=== PATIENT | female | born 1935 | race Caucasian/White ===

== ENCOUNTER 2016-06-24 09:24 | Emergency (ER) | payer MEDICARE ==
[2016-06-24] MEDS ORDERED: SODIUM CHLORIDE 0.9% 1,000 ML IV ONE ×2 (09:44→12:41)
[2016-06-24] MEDS ORDERED: cefTRIAXone 1 GM in SODIUM CHLORIDE 0.9% MINIBAG 100 ML IV STA ×2 (12:37→12:39)
[2016-06-24] MEDS ORDERED: cefTRIAXone 1 GM VIAL ONE (12:40)
== END 2016-06-24 16:00 | disposition home or self-care (01) ==
DX: E86.0 Dehydration (principal); N30.00 Acute cystitis without hematuria; S80.02XA Contusion of left knee, initial encounter; S80.12XA Contusion of left lower leg, initial encounter; S80.11XA Contusion of right lower leg, initial encounter; W06.XXXA Fall from bed, initial encounter; I10 Essential (primary) hypertension; E03.9 Hypothyroidism, unspecified; Z86.73 Personal history of transient ischemic attack (TIA), and cerebral infarction without residual deficits; Z79.01 Long term (current) use of anticoagulants

== ENCOUNTER 2016-07-12 16:00 | Outpatient (CLI) | payer MEDICARE | END 2016-07-12 16:01 | disposition home or self-care (01) | DX: N39.0 Urinary tract infection, site not specified (principal) ==

== ENCOUNTER 2016-09-04 09:25 | Outpatient (CLI) | payer MEDICARE | END 2016-09-04 09:26 | disposition home or self-care (01) | DX: K83.0 Cholangitis (principal); I10 Essential (primary) hypertension; I48.0 Paroxysmal atrial fibrillation; E78.5 Hyperlipidemia, unspecified; E03.9 Hypothyroidism, unspecified ==

== ENCOUNTER 2016-11-13 06:56 | Outpatient (CLI) | payer MEDICARE | END 2016-11-13 06:57 | disposition home or self-care (01) | LOC: LAB.R 06:56 | PROVIDERS: ATTEND Family Medicine | DX: N39.0 Urinary tract infection, site not specified (principal) | CPT/HCPCS: 87086 ==

== ENCOUNTER 2016-11-13 06:58 | Outpatient (CLI) | payer MEDICARE | END 2016-11-13 06:59 | disposition home or self-care (01) | LOC: LAB.R 06:58 | PROVIDERS: ATTEND Family Medicine | DX: T14.8 Other injury of unspecified body region (principal); N39.0 Urinary tract infection, site not specified | CPT/HCPCS: 87070; 87077; 87086; 87205 ==

== ENCOUNTER 2016-12-18 09:17 | Outpatient (CLI) | payer MEDICARE ==
[2016-12-18 14:07] LABS: ALBUMIN/GLOBULIN RATIO 1.5 (1.0-2.2); BILIRUBIN,TOTAL 0.6 mg/dL (0.2-1.0); BUN - BLOOD UREA NITROGEN 13 mg/dL (6-20); CARBON DIOXIDE - CO2 25 mmol/L (21-32); CHLORIDE 107 mmol/L (101-111); CHOL/HDL RATIO 3.1 (<4.4); CHOLESTEROL 169 mg/dL; CREATININE 0.7 mg/dL (0.4-1.0); GFR - MDRD 80 (>89); GLUCOSE 100 mg/dL (70-100); HDL CHOLESTEROL 54 mg/dL; LDL/HDL RATIO 1.9 (<4.4); POTASSIUM 3.6 mmol/L (3.5-5.0); SODIUM 140 mmol/L (135-145); TOTAL PROTEIN 6.4 g/dL (6.7-8.2); TRIGLYCERIDES 72 mg/dL; VLDL CHOLESTEROL 14 mg/dL
== END 2016-12-18 09:18 | disposition home or self-care (01) ==
LOC: LAB.WCP 09:17
PROVIDERS: ATTEND Physician Assistant Medical
DX: I10 Essential (primary) hypertension (principal); E78.9 Disorder of lipoprotein metabolism, unspecified; E03.9 Hypothyroidism, unspecified
CPT/HCPCS: 36415; 80053; 80061; 84443

== ENCOUNTER 2016-12-19 11:32 | Outpatient (CLI) | payer MEDICARE ==
[2016-12-19 19:09] LABS: BASOPHILS # (AUTO) 0.1 10^3/uL (0.0-0.1); BASOPHILS % (AUTO) 1.2 %; EOSINOPHILS # (AUTO) 0.4 10^3/uL (0.0-0.7); EOSINOPHILS % (AUTO) 4.7 %; HGB - HEMOGLOBIN 13.3 g/dL (12.0-16.0); LYMPHOCYTES # (AUTO) 1.9 10^3/uL (1.5-3.5); LYMPHOCYTES % (AUTO) 23.3 %; MEAN CORPUSCULAR HEMOGLOBIN 29.8 pg (27.0-31.0); MEAN CORPUSCULAR HGB CONC 33.2 g/dL (32.0-36.0); MEAN CORPUSCULAR VOLUME 89.8 fL (81.0-99.0); MEAN PLATELET VOLUME 10.5 fL (7.9-10.8); MONOCYTES # (AUTO) 0.8 10^3/uL (0.0-1.0); MONOCYTES % (AUTO) 9.9 %; NEUTROPHILS % (AUTO) 60.9 %; NUCLEATED RED BLOOD CELLS AUTO 0.2 /100WBC; RED BLOOD COUNT 4.46 10^6/uL (4.20-5.40); RED CELL DISTRIBUTION WIDTH 14.3 % (12.0-15.0); UNCORRECTED WHITE BLOOD COUNT 8.1 x10^3/uL; WHITE BLOOD COUNT 8.1 x10^3/uL (4.8-10.8)
== END 2016-12-19 11:33 | disposition home or self-care (01) ==
LOC: LAB.WCP 11:32
PROVIDERS: ATTEND Family Medicine
DX: R10.31 Right lower quadrant pain (principal)
CPT/HCPCS: 36415; 85025

== ENCOUNTER 2017-05-23 08:00 | Outpatient (CLI) | payer MEDICARE ==
[2017-05-23 12:49] LABS: BASOPHILS # (AUTO) 0.1 10^3/uL (0.0-0.1); BASOPHILS % (AUTO) 1.5 %; EOSINOPHILS # (AUTO) 0.4 10^3/uL (0.0-0.7); EOSINOPHILS % (AUTO) 3.7 %; HGB - HEMOGLOBIN 13.1 g/dL (12.0-16.0); LYMPHOCYTES # (AUTO) 2.9 10^3/uL (1.5-3.5); LYMPHOCYTES % (AUTO) 28.4 %; MEAN CORPUSCULAR HEMOGLOBIN 29.8 pg (27.0-31.0); MEAN CORPUSCULAR HGB CONC 32.6 g/dL (32.0-36.0); MEAN CORPUSCULAR VOLUME 91.4 fL (81.0-99.0); MEAN PLATELET VOLUME 10.1 fL (7.9-10.8); MONOCYTES # (AUTO) 0.7 10^3/uL (0.0-1.0); MONOCYTES % (AUTO) 7.3 %; NEUTROPHILS % (AUTO) 59.1 %; PLT - PLATELET COUNT 392 10^3/uL (130-450); RED CELL DISTRIBUTION WIDTH 14.6 % (12.0-15.0); WHITE BLOOD COUNT 10.2 x10^3/uL (4.8-10.8)
[2017-05-23 13:35] LABS: ALBUMIN 3.4 g/dL (3.2-5.5); ALBUMIN/GLOBULIN RATIO 1.2 (1.0-2.2); ALKALINE PHOSPHATASE 87 IU/L (42-121); ALT ALANINE AMINOTRANSFERASE 23 IU/L (10-60); AST ASPARTATE AMINOTRANSFERASE 28 IU/L (10-42); BILIRUBIN,TOTAL 0.3 mg/dL (0.2-1.0); BUN - BLOOD UREA NITROGEN 15 mg/dL (6-20); CALCIUM 8.5 mg/dL (8.5-10.3); CARBON DIOXIDE - CO2 25 mmol/L (21-32); CHLORIDE 108 mmol/L (101-111); CREATININE 0.8 mg/dL (0.4-1.0); GFR - MDRD 69 (>89); GLUCOSE 84 mg/dL (70-100); SODIUM 140 mmol/L (135-145); TOTAL PROTEIN 6.3 g/dL (6.7-8.2)
== END 2017-05-23 08:01 | disposition home or self-care (01) ==
LOC: LAB.WCP 08:00
PROVIDERS: ATTEND Family Medicine
DX: R53.83 Other fatigue (principal); E03.9 Hypothyroidism, unspecified
CPT/HCPCS: 36415; 80053; 84443; 85025

== ENCOUNTER 2017-07-20 14:43 | Outpatient (CLI) | payer MEDICARE ==
--- NOTE | 2017-07-21 00:46 | Ultrasound Report ---
EXAM: Bilateral Lower Extremity Arterial Doppler Ultrasound EXAM DATE: 07/20/2017 03:23 PM. CLINICAL HISTORY: Peripheral vascular disease. COMPARISON: None. TECHNIQUE: Real-time sonographic vascular imaging was performed by the patent paralegal, utilizing color-f low, Doppler flow, and spectral analysis. Multiple congressional representative static images were saved for review . FINDINGS: Right Lower Extremity: MAORI PHYSIOTHERAPIST: PSV 157 cm/sec. Biphasic waveform. PSFA: PSV 119 cm/sec. Biphasic waveform. MSFA: PSV 68 cm/sec. Biphasic waveform. DSFA: PSV 75 cm/sec. Biphasic waveform. PFA: PSV 143 cm/sec. Biphasic waveform. POP: Popliteal was viewed. Image not frozen and not saved. GEOVANNA: PSV 34 cm/sec. Biphasic waveform. DOCUMENTATION MANAGER: PSV 44 cm/sec. Biphasic waveform. EDDIE: PSV 32 cm/sec. Monophasic waveform. DPA: PSV 47 cm/sec. Biphasic waveform. Left Lower Extremity: MAORI PHYSIOTHERAPIST: PSV 121 cm/sec. Biphasic waveform. PSFA: PSV 79 cm/sec. Biphasic waveform. MSFA: PSV 73 cm/sec. Biphasic waveform. DSFA: PSV 43 cm/sec. Monophasic waveform. PFA: PSV 105 cm/sec. Triphasic waveform. POP: PSV 49 cm/sec. Monophasic waveform. GEOVANNA: PSV 24 cm/sec. Monophasic waveform. DOCUMENTATION MANAGER: PSV 44 cm/sec. Biphasic waveform. EDDIE: PSV 11 cm/sec. Monophasic waveform. DPA: PSV 25 cm/sec. Biphasic waveform. IMPRESSION: 1. Images of the right popliteal artery were not saved. 2. Within the interrogated arteries of the bilateral lower extremities, there is no evidence of occlu ronaldo or high-grade stenosis. [facility] Referring Provider Line: [phone] SITE ID: [id number]
== END 2017-07-20 14:44 | disposition home or self-care (01) ==
LOC: DI 14:43
PROVIDERS: ATTEND Family Medicine
DX: I73.9 Peripheral vascular disease, unspecified (principal)
CPT/HCPCS: 93925

== ENCOUNTER 2017-08-22 12:36 | Emergency (ER) | payer MEDICARE ==
[2017-08-22] MEDS ORDERED: SODIUM CHLORIDE 0.9% 1,000 ML IV ONE (13:26)
--- NOTE | 2017-08-22 13:29 | ED Physician Documentation ---
PD HPI ABD PAIN - Stated complaint Stated Complaint: ABD PX/VOMITING - Chief complaint Chief Complaint: Abd Pain - History obtained from History obtained from: Patient - History of Present Illness Timing - onset: How many days ago (5) Timing - duration: Days (5) Timing - details: Waxing and waning Pain level max: 10 Pain level now: 3 Quality: Pain Location: RUQ Associated symptoms: Nausea. No: Vomiting - Additional information Additional information: The patient is an 82-year-old female who presents with right upper quadrant abdominal pain that has been waxing and waning intermittently for the past 5 days. She reports associated nausea and "flushing." She denies vomiting, diarrhea, or dysuria. She denies cough. 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 She has a remote history of cholecystectomy. Further past medical history is significant for atrial fibrillation, for which she is on warfarin. Review of Systems Constitutional: reports: Fever, Fatigue Nose: denies: Congestion Throat: denies: Sore throat Cardiac: denies: Chest pain / pressure Respiratory: denies: Dyspnea, Cough GI: reports: Abdominal Pain, Nausea. denies: Vomiting, Diarrhea : denies: Dysuria Skin: denies: Rash Musculoskeletal: reports: Extremity swelling (slight). denies: Back pain Neurologic: denies: Focal weakness, Numbness, Headache PD PAST MEDICAL HISTORY - Past Medical History Cardiovascular: Hypertension, High cholesterol, Atrial fibrillation, Other Neuro: CVA Endocrine/Autoimmune: HyPOthyroidism Musculoskeletal: Osteoarthritis - Past Surgical History Past Surgical History: Yes General: Cholecystectomy Ortho: Hip replacement - Present Medications Home Medications: Ambulatory Orders Medication Instructions Recorded Confirmed ALPRAZolam [Xanax] 0.5 mg ORAL DAILY 10/12/14 06/24/16 Budesonide [Budesonide EC] 3 mg ORAL DAILY 10/12/14 06/24/16 Carvedilol 6.25 mg ORAL BID 10/12/14 06/24/16 Levothyroxine Sodium [Synthroid] 125 mcg ORAL DAILY 10/12/14 06/24/16 Losartan [Cozaar] 50 mg ORAL DAILY 10/12/14 06/24/16 Omeprazole [PriLOSEC] 20 mg ORAL DAILY 10/12/14 06/24/16 Simvastatin 10 mg ORAL DAILY 10/12/14 06/24/16 Warfarin Sodium [Coumadin] 6 mg ORAL DAILY 10/12/14 06/24/16 diazePAM [Valium] 5 mg PO TID PRN #15 tablet 10/12/14 06/24/16 Nitrofurantoin [Macrobid] 100 mg PO BID #20 capsule 06/24/16 Ursodiol 0 mg PO TID 06/24/16 06/24/16 - Allergies Allergies/Adverse Reactions: Allergies Allergy/AdvReac Type Severity Reaction Status Date / Time Sulfa (Sulfonamide Allergy Edema Verified 08/22/17 13:03 Antibiotics) - Social History Does the pt smoke?: No Smoking Status: Never smoker Does the pt drink ETOH?: No Does the pt have substance abuse?: No - Immunizations Immunizations are current?: Yes PD ED PE NORMAL - Vitals Vital signs reviewed: Yes (mild diastolic hypertension) - General General: Alert and oriented X 3, Well developed/nourished - HEENT HEENT: Atraumatic, EOMI, Moist mucous membranes, Pharynx benign - Neck Neck: Supple, no meningeal sign, No adenopathy, No JVD - Cardiac Cardiac: RRR - Respiratory Respiratory: No respiratory distress, Clear bilaterally - Abdomen Abdomen: Normal bowel sounds, Soft, Other (Tenderness to palpation RUQ, without rebound tenderness or guarding.) - Back Back: No CVA TTP - Derm Derm: No rash - Extremities Extremities: No calf tenderness / cord, Other (Trace pedal edema.) - Neuro Neuro: Alert and oriented X 3, No motor deficit, Normal speech Results - Vitals Vitals: Oxygen O2 Source Room air - Labs Labs: Microbiology 08/22/17 13:30 Urine Culture - Final Urine,Clean Catch Less Than 10,000 COLONIES/ML UROGENITAL RAHEL Laboratory Tests 08/22/17 08/22/17 08/22/17 13:30 14:25 14:25 WBC 8.9 RBC 4.27 Hgb 12.7 Hct 37.6 MCV 88.1 MCH 29.8 MCHC 33.8 RDW 14.1 Plt Count 336 MPV 9.2 Neut # 5.8 Lymph # 1.8 Valley # 0.9 Eos # 0.3 Baso # 0.1 Absolute Nucleated RBC 0.00 Nucleated RBC % 0.0 Sodium 130 L Potassium 3.9 Chloride 98 L Carbon Dioxide 25 Anion Gap 7.0 BUN 12 Creatinine 0.7 Estimated GFR (MDRD) 80 L Glucose 90 Calcium 8.7 Total Bilirubin 0.2 AST 25 ALT 21 Alkaline Phosphatase 77 Total Protein 6.0 L Albumin 3.5 Globulin 2.5 Albumin/Globulin Ratio 1.4 Lipase 29 Urine Color YELLOW Urine Clarity CLEAR Urine pH 6.5 Ur Specific Novi <=1.005 Urine Protein 30 H Urine Glucose (UA) NEGATIVE Urine Ketones NEGATIVE Urine Occult Blood TRACE-INTA Urine Nitrite NEGATIVE Urine Bilirubin NEGATIVE Urine Urobilinogen 0.2 (NORMAL) Ur Leukocyte Esterase TRACE H Urine RBC 0-5 Urine WBC 0-3 Ur Squamous Epith Cells RARE Squamous Urine Bacteria Rare Ur Microscopic Review INDICATED Urine Culture Comments INDICATED - Rads (name of study) CT abd/pelvis w/IV contrast Radiology: Prelim report reviewed, EMP read contemporaneously, See rad report (1 ) Cholecystectomy without dilated ducts. 2) Stable bilateral renal cysts. 3) Advanced atherosclerotic calcification. 4) Right hip arthroplasty and chronic L3 compression fracture.) PD MEDICAL DECISION MAKING - ED course Complexity details: reviewed old records, reviewed results, re-evaluated patient , considered differential, d/w patient, d/w family ED course: The patient's upper abdominal pain is most likely due to gastritis versus peptic ulcer disease. Pancreatitis, biliary colic, and cholangitis were considered, but are all unlikely. Her lipase, liver enzymes, and white blood cell count are all normal. CT scan of the abdomen and pelvis reveals no evidence of acute pathology to account for the patient's symptoms. Her presentation does not suggest cardiac or pulmonary etiology for her symptoms. Treatment in the emergency department included administration of normal saline 100 mL IV. A GI cocktail was administered and it relieved the patient's symptoms. On repeat examination, her abdomen is benign. Her medications already include omeprazole, so no further prescription medication was added. I discussed with her and her the likely diagnosis, symptomatic treatment and outpatient follow-up, as well as potentially worrisome signs or symptoms that should prompt reevaluation in the emergency department. Departure - Departure Disposition: 01 Home, Self Care Clinical Impression: Abdominal pain Qualifiers: Abdominal location: upper abdomen, unspecified Qualified Code(s): R10.10 - Upper abdominal pain, unspecified Gastritis Qualifiers: Gastritis type: unspecified gastritis Chronicity: unspecified Gastritis bleeding: without bleeding Qualified Code(s): K29.70 - Gastritis, unspecified, without bleeding Condition: Stable Instructions: ED PUD Vs Gastritis Follow-Up: Alexx Engel MD [Provider Admit Priv/Credential] - Comments: Minimize cheese and other dairy products. Continue omeprazole as previously prescribed. You can use liquid antacid, such as Maalox or Mylanta, if you develop recurrent symptoms. Follow up with your primary physician within 1-2 weeks. Call to schedule an appointment. Return to the emergency department if you develop increasing abdominal pain, persistent vomiting, or otherwise worsening symptoms. Discharge Date/Time: 08/22/17 17:48
[2017-08-22 13:40] LABS: BILIRUBIN,URINE NEGATIVE (NEGATIVE); CLARITY,URINE CLEAR (CLEAR); GLUCOSE, URINE (UA) NEGATIVE (NEGATIVE); KETONES,URINE (UA) NEGATIVE (NEGATIVE); LEUKOCYTE ESTERASE, URINE TRACE (NEGATIVE); NITRITE,URINE NEGATIVE (NEGATIVE); OCCULT BLOOD,URINE TRACE-INTA (NEGATIVE); PH,URINE 6.5 PH (5.0-7.5); PROTEIN,URINE 30 mg/dL (NEGATIVE); UROBILINOGEN,URINE 0.2 (NORMAL) E.U./dL (NORMAL)
[2017-08-22 13:49] LABS: RBC,URINE 0-5 /HPF (0-5)
[2017-08-22 13:50] LABS: BACTERIA,URINE Rare /HPF (None Seen); SQUAMOUS EPITHELIAL CELL,UR RARE Squamous (<= Few)
[2017-08-22 14:34] LABS: BASOPHILS # (AUTO) 0.1 10^3/uL (0.0-0.1); BASOPHILS % (AUTO) 1.2 %; EOSINOPHILS # (AUTO) 0.3 10^3/uL (0.0-0.7); EOSINOPHILS % (AUTO) 3.5 %; HGB - HEMOGLOBIN 12.7 g/dL (12.0-16.0); LYMPHOCYTES # (AUTO) 1.8 10^3/uL (1.5-3.5); LYMPHOCYTES % (AUTO) 20.5 %; MEAN CORPUSCULAR HEMOGLOBIN 29.8 pg (27.0-31.0); MEAN CORPUSCULAR HGB CONC 33.8 g/dL (32.0-36.0); MEAN CORPUSCULAR VOLUME 88.1 fL (81.0-99.0); MEAN PLATELET VOLUME 9.2 fL (7.9-10.8); MONOCYTES # (AUTO) 0.9 10^3/uL (0.0-1.0); MONOCYTES % (AUTO) 9.7 %; NEUTROPHILS # (AUTO) 5.8 10^3/uL (1.5-6.6); NEUTROPHILS % (AUTO) 65.1 %; PLT - PLATELET COUNT 336 10^3/uL (130-450); RED BLOOD COUNT 4.27 10^6/uL (4.20-5.40); RED CELL DISTRIBUTION WIDTH 14.1 % (12.0-15.0); WHITE BLOOD COUNT 8.9 x10^3/uL (4.8-10.8)
[2017-08-22 14:59] LABS: ALBUMIN 3.5 g/dL (3.2-5.5); ALBUMIN/GLOBULIN RATIO 1.4 (1.0-2.2); BILIRUBIN,TOTAL 0.2 mg/dL (0.2-1.0); CALCIUM 8.7 mg/dL (8.5-10.3); CREATININE 0.7 mg/dL (0.4-1.0)
[2017-08-22] MEDS ORDERED: IOPAMIDOL-300 100 ML VIAL ONE (16:14)
--- NOTE | 2017-08-22 16:35 | CT Preliminary Report ---
Exam: CT ABDOMEN/PELVIS W/ IMPRESSION: 1. Cholecystectomy without dilated ducts. 2. Stable bilateral renal cysts. 3. Advanced atherosclerotic calcification. 4. Right hip arthroplasty and chronic L3 compression fracture. [facility] SITE ID: [id number]
--- NOTE | 2017-08-22 16:35 | CT Report ---
EXAM: CT ABDOMEN AND PELVIS EXAM DATE: 08/22/2017 04:02 PM. CLINICAL HISTORY: Right upper quadrant pain.. COMPARISONS: 10/05/2014. TECHNIQUE: Routine helical CT imaging was performed through the abdomen and pelvis. IV contrast: 100M L ISOVUE 300. Enteric contrast: No. Reconstructions: Coronal and sagittal. In accordance with CT protocol optimization, one or more of the following dose reduction techniques w ere utilized for this exam: automated exposure control, adjustment of mA and/or KV based on patient s ize, or use of iterative reconstructive technique. FINDINGS: Lung Bases: Unremarkable. Liver: Normal. No masses. Gallbladder/Bile Ducts: Cholecystectomy. No dilated ducts. Spleen: Normal. Pancreas: Normal. Adrenal Glands: Normal. Kidneys: Stable bilateral cysts, otherwise unremarkable. Peritoneal Cavity/Bowel: Normal. No free fluid, free air or adenopathy. No masses or acute inflammato ry process. The appendix is well visualized and normal. Pelvic Organs: Metal artifact from right hip arthroplasty obscures detail. The bladder and visualized pelvic organs are within normal limits. Vasculature: No aortic enlargement. Advanced atherosclerotic calcification. Bones: Chronic superior endplate concavity at L3. Other: None. IMPRESSION: 1. Cholecystectomy without dilated ducts. 2. Stable bilateral renal cysts. 3. Advanced atherosclerotic calcification. 4. Right hip arthroplasty and chronic L3 compression fracture. [facility] Referring Provider Line: [phone] SITE ID: [id number]
[2017-08-22] MEDS ORDERED: MAG HYDROX/AL HYDROX/SIMETH 30 ML UDC PO STA (16:50)
[2017-08-22] MEDS ORDERED: LIDOCAINE VISCOUS 2% 15 ML UDC MM STA (16:50)
[2017-08-22] MEDS ORDERED: PHENobarb/HYOSCY/ATROPINE/SCOP 5 ML UDC PO STA (16:50)
[2017-08-22 17:41] VITALS: BP 173/83
[2017-08-22] MEDS ORDERED: IOPAMIDOL-300 100 ML VIAL IVP ONE (19:14)
== END 2017-08-22 17:48 | disposition home or self-care (01) ==
LOC: ED 12:36
DX: K29.70 Gastritis, unspecified, without bleeding (principal); I10 Essential (primary) hypertension; E78.00 Pure hypercholesterolemia, unspecified; I48.91 Unspecified atrial fibrillation; Z79.01 Long term (current) use of anticoagulants; E03.9 Hypothyroidism, unspecified; M19.90 Unspecified osteoarthritis, unspecified site; Z86.73 Personal history of transient ischemic attack (TIA), and cerebral infarction without residual deficits
CPT/HCPCS: 36415; 74177; 80053; 81001; 83690; 85025; 87086; 96360; 96361; 99283; 99284; A9270; Q9967; 81003

== ENCOUNTER → 2018-02-14 | Outpatient (CLI) | payer MEDICARE | LOC: LAB.WCP 15:06 | PROVIDERS: ATTEND Family Medicine | DX: M25.511 Pain in right shoulder (principal) | CPT/HCPCS: 36415; 85651 ==

== ENCOUNTER 2018-03-03 13:15 | Outpatient (CLI) | payer MEDICARE | END 2018-03-03 13:16 | disposition home or self-care (01) | LOC: LAB.WCP 13:15 | PROVIDERS: ATTEND Family Medicine | DX: I48.0 Paroxysmal atrial fibrillation (principal); Z79.01 Long term (current) use of anticoagulants | CPT/HCPCS: 36415; 85610 ==

== ENCOUNTER 2018-06-10 11:19 | Outpatient (CLI) | payer MEDICARE ==
[2018-06-10 18:42] LABS: BASOPHILS # (AUTO) 0.1 10^3/uL (0.0-0.1); BASOPHILS % (AUTO) 0.7 %; EOSINOPHILS # (AUTO) 0.4 10^3/uL (0.0-0.7); EOSINOPHILS % (AUTO) 4.4 %; HGB - HEMOGLOBIN 13.1 g/dL (12.0-16.0); LYMPHOCYTES # (AUTO) 2.3 10^3/uL (1.5-3.5); LYMPHOCYTES % (AUTO) 26.3 %; MEAN CORPUSCULAR HEMOGLOBIN 29.7 pg (27.0-31.0); MEAN CORPUSCULAR HGB CONC 34.9 g/dL (32.0-36.0); MEAN CORPUSCULAR VOLUME 85.1 fL (81.0-99.0); MEAN PLATELET VOLUME 9.8 fL (7.9-10.8); MONOCYTES # (AUTO) 0.9 10^3/uL (0.0-1.0); MONOCYTES % (AUTO) 10.4 %; NEUTROPHILS # (AUTO) 5.1 10^3/uL (1.5-6.6); NEUTROPHILS % (AUTO) 58.2 %; PLT - PLATELET COUNT 383 10^3/uL (130-450); RED BLOOD COUNT 4.43 10^6/uL (4.20-5.40); RED CELL DISTRIBUTION WIDTH 14.2 % (12.0-15.0); WHITE BLOOD COUNT 8.7 x10^3/uL (4.8-10.8)
[2018-06-10 19:04] LABS: ALBUMIN 3.5 g/dL (3.2-5.5); ALBUMIN/GLOBULIN RATIO 1.3 (1.0-2.2); ALKALINE PHOSPHATASE 96 IU/L (42-121); ALT ALANINE AMINOTRANSFERASE 25 IU/L (10-60); AST ASPARTATE AMINOTRANSFERASE 31 IU/L (10-42); BILIRUBIN,TOTAL 0.7 mg/dL (0.2-1.0); BUN - BLOOD UREA NITROGEN 19 mg/dL (6-20); CALCIUM 8.8 mg/dL (8.5-10.3); CARBON DIOXIDE - CO2 26 mmol/L (21-32); CHLORIDE 101 mmol/L (101-111); CHOLESTEROL 151 mg/dL; CREATININE 0.8 mg/dL (0.4-1.0); GFR - MDRD 69 (>89); GLUCOSE 73 mg/dL (70-100); HDL CHOLESTEROL 51 mg/dL; LDL CHOLESTEROL,CALCULATED 88 mg/dL; LDL/HDL RATIO 1.7 (<4.4); SODIUM 136 mmol/L (135-145); TOTAL PROTEIN 6.3 g/dL (6.7-8.2); VLDL CHOLESTEROL 12 mg/dL
[2018-06-10 20:40] LABS: HB2 TOTAL 14.7 g/dL; HEMOGLOBIN A1C 0.57 g/dL; HEMOGLOBIN A1C % 5.7 % (4.6-6.2)
== END 2018-06-10 11:20 | disposition home or self-care (01) ==
LOC: LAB.WCP 11:19
PROVIDERS: ATTEND Family Medicine
DX: E03.9 Hypothyroidism, unspecified (principal); E78.9 Disorder of lipoprotein metabolism, unspecified; R73.9 Hyperglycemia, unspecified
CPT/HCPCS: 36415; 80053; 80061; 83036; 83721; 84443; 85025

== ENCOUNTER 2018-06-24 08:00 | Outpatient (CLI) | payer MEDICARE | END 2018-06-24 23:59 | disposition home or self-care (01) | LOC: LAB.WCP 08:00 | PROVIDERS: ATTEND Family Medicine | DX: I48.0 Paroxysmal atrial fibrillation (principal); Z79.01 Long term (current) use of anticoagulants ==

== ENCOUNTER 2018-06-25 09:52 | Emergency (ER) | payer MEDICARE ==
[2018-06-25 09:58] VITALS: BP 133/75
--- NOTE | 2018-06-25 10:30 | ED Physician Documentation ---
History of Present Illness - Stated complaint Stated Complaint: WITHDRAWL - Chief complaint Chief Complaint: General - Additonal information Additional information: 83-year-old female presents the emergency department for Medication evaluation. The patient thought that her primary recommended stopping her alprazolam. Since then the patient reports withdrawal symptoms. The patient denies focal neurologic changes, chest pain, shortness of breath, abdominal pain. The patient does report feeling jittery and nauseous and episodes of diarrhea. No other associated symptoms. The patient did take a half a tablet of alprazolam last night and reports improvement of her symptoms. No other associated symptoms Review of Systems Constitutional: denies: Fever, Chills Eyes: denies: Discharge Ears: denies: Ear pain Throat: denies: Sore throat Cardiac: denies: Chest pain / pressure Respiratory: denies: Dyspnea, Cough GI: reports: Nausea, Diarrhea. denies: Abdominal Pain : denies: Dysuria Neurologic: denies: Generalized weakness, Altered mental status PD PAST MEDICAL HISTORY - Past Medical History Cardiovascular: Hypertension, High cholesterol, Atrial fibrillation, Other Endocrine/Autoimmune: HyPOthyroidism Musculoskeletal: Osteoarthritis - Past Surgical History Past Surgical History: Yes General: Cholecystectomy Ortho: Hip replacement - Present Medications Home Medications: Ambulatory Orders Medication Instructions Recorded Confirmed ALPRAZolam [Xanax] 0.5 mg ORAL DAILY 10/12/14 06/24/16 Budesonide [Budesonide EC] 3 mg ORAL DAILY 10/12/14 06/24/16 Carvedilol 6.25 mg ORAL BID 10/12/14 06/24/16 Levothyroxine Sodium [Synthroid] 125 mcg ORAL DAILY 10/12/14 06/24/16 Losartan [Cozaar] 50 mg ORAL DAILY 10/12/14 06/24/16 Omeprazole [PriLOSEC] 20 mg ORAL DAILY 10/12/14 06/24/16 Simvastatin 10 mg ORAL DAILY 10/12/14 06/24/16 Warfarin Sodium [Coumadin] 6 mg ORAL DAILY 10/12/14 06/24/16 diazePAM [Valium] 5 mg PO TID PRN #15 tablet 10/12/14 06/24/16 Nitrofurantoin [Macrobid] 100 mg PO BID #20 capsule 06/24/16 Ursodiol 0 mg PO TID 06/24/16 06/24/16 - Allergies Allergies/Adverse Reactions: Allergies Allergy/AdvReac Type Severity Reaction Status Date / Time Sulfa (Sulfonamide Allergy Edema Verified 06/25/18 09:58 Antibiotics) - Social History Does the pt smoke?: No Smoking Status: Never smoker Does the pt drink ETOH?: No Does the pt have substance abuse?: No - Immunizations Immunizations are current?: Yes PD ED PE NORMAL - General General: Alert and oriented X 3, No acute distress - HEENT HEENT: Atraumatic, PERRL, EOMI, Ears normal - Derm Derm: Normal color - Extremities Extremities: No deformity - Neuro Neuro: Alert and oriented X 3, Normal speech - Psych Psych: Normal affect Results - Vitals Vitals: Vital Signs - 24 hr 06/25/18 09:55 Temperature 36.8 C Heart Rate 90 Respiratory 16 Rate Blood Pressure 133/75 H O2 Saturation 99 Oxygen O2 Source Room air PD MEDICAL DECISION MAKING - ED course ED course: The case was discussed with the patient's primary care physician. He did not tell the patient that she needed to wean herself off the medication, the patient misinterpreted their conversation. He recommended that the patient can go back on the medication. The patient will follow up in clinic for ongoing medication management. I offered the patient a medical evaluation in the emergency department which would include lab work, an EKG and urinalysis to rule out an underlying medical issue causing her symptoms. The patient has declined this at the time and reports just having blood work. I advised that the patient can return to the emergency department at any point for reevaluation. Departure - Departure Disposition: 01 Home, Self Care Clinical Impression: Withdrawal complaint Condition: Good Instructions: ED Withdrawal Benzodiazepine Comments: You declined any lab work in the emergency department at this time Per your primary care physician the did not feel that you need to the weaning from the benzodiazepine. Please follow-up for ongoing medication management Please to the emergency department return for any worsening or any concerns
== END 2018-06-25 10:36 | disposition home or self-care (01) ==
LOC: ED 09:52
DX: F13.230 Sedative, hypnotic or anxiolytic dependence with withdrawal, uncomplicated (principal); R11.0 Nausea; T42.6X6A Underdosing of other antiepileptic and sedative-hypnotic drugs, initial encounter; Z91.128 Patient's intentional underdosing of medication regimen for other reason; I10 Essential (primary) hypertension; E78.00 Pure hypercholesterolemia, unspecified; E03.9 Hypothyroidism, unspecified; I48.91 Unspecified atrial fibrillation; Z79.01 Long term (current) use of anticoagulants; Z96.649 Presence of unspecified artificial hip joint
CPT/HCPCS: 99282

== ENCOUNTER 2018-07-09 16:00 | Outpatient (CLI) | payer MEDICARE | END 2018-07-09 23:59 | disposition home or self-care (01) | LOC: LAB.WCP 16:00 | PROVIDERS: ATTEND Family Medicine | DX: R30.0 Dysuria (principal) | CPT/HCPCS: 87086 ==

== ENCOUNTER 2018-07-22 08:00 | Outpatient (CLI) | payer MEDICARE | END 2018-07-22 23:59 | disposition home or self-care (01) | LOC: LAB.WCP 08:00 | PROVIDERS: ATTEND Family Medicine | DX: I48.0 Paroxysmal atrial fibrillation (principal); Z79.01 Long term (current) use of anticoagulants | CPT/HCPCS: 81025 ==

== ENCOUNTER 2018-08-25 08:00 | Outpatient (CLI) | payer MEDICARE | END 2018-08-25 08:01 | disposition home or self-care (01) | LOC: LAB.WCP 08:00 | PROVIDERS: ATTEND Family Medicine | DX: I48.0 Paroxysmal atrial fibrillation (principal); Z79.01 Long term (current) use of anticoagulants ==

== ENCOUNTER 2018-10-01 12:42 | Outpatient (CLI) | payer MEDICARE ==
--- NOTE | 2018-10-01 14:30 | Mammography Report ---
Reason: SCREENING MAMMOGRAM FOR BREAST CANCER Procedure Date: 10/01/2018 Accession Number: [id number] / [id number] Procedure: [facility] - Screening Mammo w/[place] CPT Code: FULL RESULT: EXAM: Screening Mammo w/[place] DATE: 10/01/2018 1:36 PM CLINICAL HISTORY: Screening TECHNIQUE: (B) - Bilateral CC and MLO views were obtained. Both 2-D and 3-D mammography was performed. COMPARISON: None available PARENCHYMAL PATTERN: (A) - The breasts demonstrate scattered fibroglandular densities bilaterally. FINDINGS: There are no suspicious masses, calcifications, or areas of distortion. IMPRESSION: Negative examination. BI-RADS category 1. RECOMMENDATION: (ANNUAL) - Recommend routine annual screening mammography. BI-RADS CATEGORY: (1) - Negative. STANDARD QUALIFYING STATEMENTS: 1. This examination was not reviewed with the aid of Computer-Aided Detection (CAD). 2. A negative or benign imaging report should not preclude biopsy if clinically suspicious findings are present. 3. Dense breasts may obscure an underlying neoplasm. 4. This examination was reviewed with the aid of 3D breast imaging (tomosynthesis).
== END 2018-10-01 12:43 | disposition home or self-care (01) ==
LOC: DI 12:42
PROVIDERS: ATTEND Family Medicine
DX: Z12.31 Encounter for screening mammogram for malignant neoplasm of breast (principal)
CPT/HCPCS: 77063; 77067

== ENCOUNTER 2018-10-20 08:00 | Outpatient (CLI) | payer MEDICARE | END 2018-10-20 23:59 | disposition home or self-care (01) | LOC: LAB.WCP 08:00 | PROVIDERS: ATTEND Family Medicine | DX: I48.0 Paroxysmal atrial fibrillation (principal); I63.9 Cerebral infarction, unspecified; Z79.01 Long term (current) use of anticoagulants ==

== ENCOUNTER 2018-12-15 08:00 | Outpatient (CLI) | payer MEDICARE | END 2018-12-15 23:59 | disposition home or self-care (01) | LOC: LAB.WCP 08:00 | PROVIDERS: ATTEND Physician Assistant Medical | DX: I48.0 Paroxysmal atrial fibrillation (principal); I63.9 Cerebral infarction, unspecified ==

== ENCOUNTER 2019-01-12 08:00 | Outpatient (CLI) | payer MEDICARE | END 2019-01-12 23:59 | disposition home or self-care (01) | LOC: LAB.WCP 08:00 | PROVIDERS: ATTEND Physician Assistant Medical | DX: Z79.01 Long term (current) use of anticoagulants (principal); I48.0 Paroxysmal atrial fibrillation ==

== ENCOUNTER 2019-01-26 08:00 | Outpatient (CLI) | payer MEDICARE | END 2019-01-26 23:59 | disposition home or self-care (01) | LOC: LAB.WCP 08:00 | PROVIDERS: ATTEND Physician Assistant Medical | DX: I48.0 Paroxysmal atrial fibrillation (principal); Z79.01 Long term (current) use of anticoagulants ==

== ENCOUNTER 2019-02-16 08:00 | Outpatient (CLI) | payer MEDICARE | END 2019-02-16 23:59 | disposition home or self-care (01) | LOC: LAB.WCP 08:00 | PROVIDERS: ATTEND Physician Assistant Medical | DX: Z79.01 Long term (current) use of anticoagulants (principal); I48.0 Paroxysmal atrial fibrillation ==

== ENCOUNTER 2019-03-16 08:00 | Outpatient (CLI) | payer MEDICARE | END 2019-03-16 23:59 | disposition home or self-care (01) | LOC: LAB.WCP 08:00 | PROVIDERS: ATTEND Physician Assistant Medical | DX: Z79.01 Long term (current) use of anticoagulants (principal); I48.0 Paroxysmal atrial fibrillation ==

== ENCOUNTER 2019-03-24 08:00 | Outpatient (CLI) | payer MEDICARE ==
[2019-03-24 18:39] LABS: BASOPHILS # (AUTO) 0.1 10^3/uL (0.0-0.1); EOSINOPHILS # (AUTO) 0.2 10^3/uL (0.0-0.7); EOSINOPHILS % (AUTO) 2.1 %; HGB - HEMOGLOBIN 12.4 g/dL (12.0-16.0); LYMPHOCYTES # (AUTO) 2.2 10^3/uL (1.5-3.5); MEAN CORPUSCULAR HEMOGLOBIN 28.8 pg (27.0-31.0); MEAN CORPUSCULAR HGB CONC 31.6 g/dL (32.0-36.0); MEAN CORPUSCULAR VOLUME 91.4 fL (81.0-99.0); MEAN PLATELET VOLUME 11.8 fL (7.9-10.8); MONOCYTES % (AUTO) 9.8 %; NEUTROPHILS # (AUTO) 6.3 10^3/uL (1.5-6.6); NEUTROPHILS % (AUTO) 64.5 %; PLT - PLATELET COUNT 501 10^3/uL (130-450); RED CELL DISTRIBUTION WIDTH 14.5 % (12.0-15.0); WHITE BLOOD COUNT 9.9 x10^3/uL (4.8-10.8)
[2019-03-24 18:53] LABS: ALBUMIN 3.7 g/dL (3.2-5.5); ALBUMIN/GLOBULIN RATIO 1.4 (1.0-2.2); BILIRUBIN,TOTAL 0.6 mg/dL (0.2-1.0); CREATININE 0.7 mg/dL (0.4-1.0); TOTAL PROTEIN 6.4 g/dL (6.7-8.2)
== END 2019-03-24 23:59 | disposition home or self-care (01) ==
LOC: LAB.WCP 08:00
PROVIDERS: ATTEND Family Medicine
DX: I10 Essential (primary) hypertension (principal); F41.9 Anxiety disorder, unspecified; I48.0 Paroxysmal atrial fibrillation; K83.09 Other cholangitis
CPT/HCPCS: 36415; 80053; 85025

== ENCOUNTER 2019-04-13 08:00 | Outpatient (CLI) | payer MEDICARE | END 2019-04-13 23:59 | disposition home or self-care (01) | LOC: LAB.WCP 08:00 | PROVIDERS: ATTEND Physician Assistant Medical | DX: Z79.01 Long term (current) use of anticoagulants (principal); I48.0 Paroxysmal atrial fibrillation; I63.9 Cerebral infarction, unspecified ==

== ENCOUNTER 2019-04-20 11:14 | Outpatient (CLI) | payer MEDICARE ==
--- NOTE | 2019-04-20 14:44 | XRAY Report ---
Reason: RIGHT LEG PAIN Procedure Date: 04/20/2019 Accession Number: [id number] / [id number] Procedure: [facility] - Tib/Fib RT CPT Code: Final Report FULL RESULT: EXAM: RIGHT TIBIA/FIBULA RADIOGRAPHY EXAM DATE: 04/20/2019 11:14 AM. CLINICAL HISTORY: Right leg pain. COMPARISON: None. TECHNIQUE: 2 views. FINDINGS: Bones: Normal. No fracture or bone lesion. Joints: The visualized knee and ankle joints are normal. No effusions. Soft Tissues: Prominent vascular calcifications are noted. IMPRESSION: Normal tibia/fibula radiography. [facility]
== END 2019-04-20 23:59 | disposition home or self-care (01) ==
LOC: DI.WCP 11:14
PROVIDERS: ATTEND Family Medicine
DX: M79.604 Pain in right leg (principal)

== ENCOUNTER 2019-04-27 06:28 | Observation (INO) | payer MEDICARE ==
[2019-04-27] MEDS ORDERED: ONDANSETRON 4 MG/2 ML VIAL IVP STA ×2 (07:10→09:57)
[2019-04-27] MEDS ORDERED: MORPHINE 2 MG/ML CARPUJECT IVP STA ×2 (07:11→08:11)
--- NOTE | 2019-04-27 07:13 | ED Physician Documentation ---
History of Present Illness - Stated complaint Stated Complaint: R SHOULDER PX/ABD SWELLING - Chief complaint Chief Complaint: Ext Problem - Additonal information Additional information: This is an 84-year-old female with a history of atrial fibrillation on warfarin and hypertension, who presents with abdominal distention and abdominal discomfort and nausea. Patient states that yesterday she had some diarrhea, and today she is felt very bloated and she been unable to pass gas or have a bowel movement. She feels that her entire abdomen is bloated and she has some generalized discomfort. She has had a gallbladder surgery in the past no other abdominal surgeries. She denies fever. No dysuria. She also has some right shoulder pain that began last night in the absence of any trauma to the shoulder. It is dull and achy, but not as intense compared to her abdominal discomfort, which is sharp crampy and diffuse, and moderate in severity. Review of Systems Constitutional: denies: Fever Nose: denies: Rhinorrhea / runny nose Cardiac: denies: Chest pain / pressure Respiratory: denies: Dyspnea GI: reports: Abdominal Pain, Abdominal Swelling, Nausea : denies: Dysuria Skin: denies: Rash Musculoskeletal: denies: Back pain Neurologic: denies: Generalized weakness Immunocompromised: denies: Immunocompromised PD PAST MEDICAL HISTORY - Past Medical History Past Medical History: Yes Cardiovascular: Hypertension, High cholesterol, Atrial fibrillation, Other Endocrine/Autoimmune: HyPOthyroidism Musculoskeletal: Osteoarthritis - Past Surgical History Past Surgical History: Yes General: Cholecystectomy Ortho: Hip replacement - Present Medications Home Medications: Ambulatory Orders Medication Instructions Recorded Confirmed ALPRAZolam [Xanax] 0.5 mg ORAL DAILY 10/12/14 04/27/19 Budesonide [Budesonide EC] 3 mg ORAL DAILY 10/12/14 04/27/19 Levothyroxine Sodium [Synthroid] 125 mcg ORAL DAILY 10/12/14 04/27/19 Losartan [Cozaar] 50 mg ORAL DAILY 10/12/14 04/27/19 Omeprazole [PriLOSEC] 20 mg ORAL DAILY 10/12/14 04/27/19 Simvastatin 10 mg ORAL DAILY 10/12/14 04/27/19 Warfarin Sodium [Coumadin] 6 mg ORAL DAILY 10/12/14 04/27/19 Fluticasone [Flonase] 1 spray NS DAILY 04/27/19 04/27/19 Garlic 1 tab PO DAILY 04/27/19 04/27/19 Lactobacillus Acidophilus 1 tab PO DAILY 04/27/19 04/27/19 [Probiotic Acidophilus] [place]-3/Dha/Epa/Fish Oil [Fish Oil 3,000 mg PO DAILY 04/27/19 04/27/19 1,000 mg Softgel] Prednisone [Lisa] 1 mg PO DAILY 04/27/19 04/27/19 - Allergies Allergies/Adverse Reactions: Allergies Allergy/AdvReac Type Severity Reaction Status Date / Time Sulfa (Sulfonamide Allergy Edema Verified 04/27/19 06:43 Antibiotics) - Social History Does the pt smoke?: No Smoking Status: Never smoker Does the pt drink ETOH?: No Does the pt have substance abuse?: No - Immunizations Immunizations are current?: Yes - POLST Patient has POLST: No PD ED PE NORMAL - Vitals Vital signs reviewed: Yes - General General: Alert and oriented X 3, Other (Nontoxic-appearing but mildly uncomfortable, patient vomits after my examination) - HEENT HEENT: Atraumatic, PERRL - Neck Neck: Supple, no meningeal sign - Cardiac Cardiac: Other (Irregularly irregular rhythm, regular rate.) - Respiratory Respiratory: No respiratory distress, Clear bilaterally - Abdomen Abdomen: Other (Soft, distended, hypoactive bowel tones, diffusely mildly tender to palpation.) - Derm Derm: Warm and dry - Extremities Extremities: No deformity - Neuro Neuro: Alert and oriented X 3 - Psych Psych: Normal mood, Normal affect Results - Vitals Vitals: Vital Signs - 24 hr 04/27/19 04/27/19 06:30 08:42 Temperature 36.6 C Heart Rate 74 63 Respiratory 18 18 Rate Blood Pressure 182/59 H 153/80 H O2 Saturation 98 94 Oxygen O2 Source Room air - EKG (time done) 7:12 Other comments: Other comments (Rate 78, rhythm atrial fibrillation, there is borderline low voltage in extremity leads. There is no ST segment elevation or depression, no abnormal T wave changes.) - Labs Labs: Laboratory Tests 04/27/19 04/27/19 04/27/19 07:01 07:01 07:01 WBC 21.4 H RBC 3.99 L Hgb 11.9 L Hct 35.8 L MCV 89.7 MCH 29.8 MCHC 33.2 RDW 13.9 Plt Count 449 MPV 10.5 Neut # (Auto) 17.0 H Lymph # (Auto) 1.9 [place] # (Auto) 2.0 H Eos # (Auto) 0.2 Baso # (Auto) 0.1 Absolute Nucleated RBC 0.00 Band Neuts % (Manual) Not Reportable Abnorm Lymph % (Manual) Not Reportable Nucleated RBC % 0.0 Neutrophils # (Manual) Not Reportable Lymphocytes # (Manual) Not Reportable Monocytes # (Manual) Not Reportable Eosinophils # (Manual) Not Reportable Basophils # (Manual) Not Reportable Differential Comment MANUAL=AUTO DIFF WBC Morphology NORMAL APPEARANCE Platelet Estimate INCREASED (>450,000) Platelet Morphology NORMAL ANDREY RBC Morph Micro Appear 1+ HYPOCHROMASIA PT INR Sodium 135 Potassium 3.5 Chloride 101 Carbon Dioxide 25 Anion Gap 9.0 BUN 14 Creatinine 0.7 Estimated GFR (MDRD) 80 L Glucose 114 H Calcium 8.9 Total Bilirubin 1.1 H AST 39 ALT 37 Alkaline Phosphatase 132 H Troponin I High Sens 7.2 Total Protein 6.2 L Albumin 3.5 Globulin 2.7 Albumin/Globulin Ratio 1.3 Lipase 37 Urine Color Urine Clarity Urine pH Ur Specific [place] Urine Protein Urine Glucose (UA) Urine Ketones Urine Occult Blood Urine Nitrite Urine Bilirubin Urine Urobilinogen Ur Leukocyte Esterase Urine RBC Urine WBC Ur Squamous Epith Cells Urine Bacteria Ur Microscopic Review Urine Culture Comments 04/27/19 04/27/19 07:01 08:37 WBC RBC Hgb Hct MCV MCH MCHC RDW Plt Count MPV Neut # (Auto) Lymph # (Auto) [place] # (Auto) Eos # (Auto) Baso # (Auto) Absolute Nucleated RBC Band Neuts % (Manual) Abnorm Lymph % (Manual) Nucleated RBC % Neutrophils # (Manual) Lymphocytes # (Manual) Monocytes # (Manual) Eosinophils # (Manual) Basophils # (Manual) Differential Comment WBC Morphology Platelet Estimate Platelet Morphology RBC Morph Micro Appear PT 32.1 H INR 3.0 H Sodium Potassium Chloride Carbon Dioxide Anion Gap BUN Creatinine Estimated GFR (MDRD) Glucose Calcium Total Bilirubin AST ALT Alkaline Phosphatase Troponin I High Sens Total Protein Albumin Globulin Albumin/Globulin Ratio Lipase Urine Color YELLOW Urine Clarity CLEAR Urine pH 7.5 Ur Specific [place] <=1.005 Urine Protein 30 H Urine Glucose (UA) NEGATIVE Urine Ketones NEGATIVE Urine Occult Blood MODERATE H Urine Nitrite NEGATIVE Urine Bilirubin NEGATIVE Urine Urobilinogen 0.2 (NORMAL) Ur Leukocyte Esterase NEGATIVE Urine RBC 0-5 Urine WBC 0-3 Ur Squamous Epith Cells RARE Squamous Urine Bacteria Rare Ur Microscopic Review INDICATED Urine Culture Comments NOT INDICATED PD MEDICAL DECISION MAKING - ED course Complexity details: considered differential (Bowel obstruction, enteritis, colitis, choledocholithiasis, pancreatitis, UTI, volvulus) ED course: Patient is nontoxic-appearing but somewhat uncomfortable on my examination, and after my exam she vomits clear liquid. She was given morphine and Zofran for symptoms, labs were drawn, and CT scan ordered. Labs are notable for leukocytosis of 21, and a mild anemia. Her CMP shows a mild alk phos elevation, otherwise unremarkable. CT scan shows some chronic findings such as lung scarring, chronic L3 compression fracture gas and feces in the colon, but no acute abnormality. Chest x-ray was performed does not show any acute infiltrate, her shoulder pain is improved after dose of morphine and she has full range of motion of the shoulder, no signs on my physical exam, this may be referred pain, potentially a mild musculoskeletal injury, but do not see signs of fracture or septic joint. Given her shoulder pain and her vomiting, I did perform an EKG and troponin, troponin is in normal range, EKG did not show any convincing signs of ischemia, did show atrial fibrillation which is baseline for the patient On repeat examination patient continues to have pain which is more focal in the right lower quadrant now. She also had a second episode of vomiting despite antiemetics. At this point she still is not passing gas, she has had multiple episodes of vomiting despite antiemetics, and she continues to have pain despite several doses of narcotic IV pain medication. Although I do not have a clear explanation for her symptoms at this time, I am concerned for an abdominal blood process which is not yet declared itself on imaging, and I feel she warrants observation for further work-up, treatment of her nausea and pain, and serial exams. Patient is in agreement with this plan. Lactate and blood culture were drawn,but she is afebrile and I will hold off on empiric antibiotics at this time given we do not have a clear infectious source, And her leukocytosis may be from other causes. Departure - Departure Disposition: ED Place in Observation Clinical Impression: Abdominal pain Qualifiers: Abdominal location: generalized Qualified Code(s): R10.84 - Generalized abdominal pain Vomiting Qualifiers: Vomiting type: unspecified Vomiting Intractability: unspecified Nausea presence: with nausea Qualified Code(s): R11.2 - Nausea with vomiting, unspecified Condition: Good
[2019-04-27 07:15] LABS: BASOPHILS # (AUTO) 0.1 10^3/uL (0.0-0.1); BASOPHILS % (AUTO) 0.6 %; EOSINOPHILS # (AUTO) 0.2 10^3/uL (0.0-0.7); EOSINOPHILS % (AUTO) 0.7 %; HGB - HEMOGLOBIN 11.9 g/dL (12.0-16.0); LYMPHOCYTES # (AUTO) 1.9 10^3/uL (1.5-3.5); LYMPHOCYTES % (AUTO) 8.8 %; MEAN CORPUSCULAR HEMOGLOBIN 29.8 pg (27.0-31.0); MEAN CORPUSCULAR HGB CONC 33.2 g/dL (32.0-36.0); MEAN CORPUSCULAR VOLUME 89.7 fL (81.0-99.0); MEAN PLATELET VOLUME 10.5 fL (7.9-10.8); MONOCYTES % (AUTO) 9.5 %; NEUTROPHILS % (AUTO) 79.4 %; PLT - PLATELET COUNT 449 10^3/uL (130-450); RED BLOOD COUNT 3.99 10^6/uL (4.20-5.40); RED CELL DISTRIBUTION WIDTH 13.9 % (12.0-15.0); WHITE BLOOD COUNT 21.4 x10^3/uL (4.8-10.8)
[2019-04-27 07:20] LABS: ALBUMIN 3.5 g/dL (3.2-5.5); ALBUMIN/GLOBULIN RATIO 1.3 (1.0-2.2); BILIRUBIN,TOTAL 1.1 mg/dL (0.2-1.0); CALCIUM 8.9 mg/dL (8.5-10.3); CREATININE 0.7 mg/dL (0.4-1.0); TOTAL PROTEIN 6.2 g/dL (6.7-8.2)
[2019-04-27] MEDS ORDERED: IOVERSOL 320 100 ML VIAL IVP ONE ×2 (07:24→08:16)
[2019-04-27 07:36] LABS: PT - PROTHROMBIN TIME 32.1 secs (9.9-12.6)
[2019-04-27 07:48] LABS: DIFFERENTIAL COMMENT MANUAL=AUTO DIFF
[2019-04-27 07:51] LABS: PLATELET ESTIMATE, MANUAL INCREASED (>450,000) (NORMAL); PLATELET MORPHOLOGY NORMAL APP (NORMAL); RBC MORPHOLOGY (MULTIPLE) 1+ HYPOCHROMASIA (NORMAL)
--- NOTE | 2019-04-27 08:08 | CT Report ---
Reason: Bloating, vomiting, abd discomfort Procedure Date: 04/27/2019 Accession Number: [id number] / [id number] Procedure: CT - Abdomen/Pelvis W CPT Code: Final Report FULL RESULT: EXAM: CT ABDOMEN AND PELVIS WITH IV CONTRAST EXAM DATE: 04/27/2019 CLINICAL HISTORY: Bloating, vomiting, abdominal discomfort. COMPARISONS: Abdomen and pelvis CT with IV contrast done 08/22/2017. TECHNIQUE: Routine helical CT imaging was performed through the abdomen and pelvis. IV contrast: 100 cc of Optiray 320. Enteric contrast: None. Reconstructions: Coronal and sagittal. In accordance with CT protocol optimization, one or more of the following dose reduction techniques were utilized for this exam: automated exposure control, adjustment of mA and/or KV based on patient size, or use of iterative reconstructive technique. FINDINGS: Lung Bases: Mild lower lung scarring is unchanged. No pleural or pericardial effusion. Atherosclerosis of the aorta and of the left anterior descending coronary artery. Liver: Normal. No masses. Gallbladder/Bile Ducts: Cholecystectomy. No bile duct dilatation. Spleen: Normal. Pancreas: Normal. Adrenal Glands: Normal. Kidneys: Bilateral cysts are unchanged. No masses, calculi, or hydronephrosis. Peritoneal Cavity/Bowel: No bowel dilatation. Moderate volume of gas and feces in nondistended colon. No free fluid, free air or adenopathy. No masses or acute inflammatory process. The appendix is not visible, no right or abdominal inflammatory process. Pelvic Organs: The urinary bladder appears normal. Uterus is normal in size for age. No adenopathy or fluid collections. Vasculature: Atherosclerosis of the aorta and branch arteries. No aneurysm. Bones: Degenerative changes of the spine. Old L3 compression fracture. Right hip prosthesis. IMPRESSION: Moderate volume of gas and feces in the colon. Otherwise, no acute abnormality. Multiple chronic findings, as described in the report, unchanged from 08/22/2017. [facility]
[2019-04-27] MEDS ORDERED: LACTATED RINGERS 500 ML IV STA (08:11)
[2019-04-27 08:48] LABS: BILIRUBIN,URINE NEGATIVE (NEGATIVE); GLUCOSE, URINE (UA) NEGATIVE (NEGATIVE); KETONES,URINE (UA) NEGATIVE (NEGATIVE); LEUKOCYTE ESTERASE, URINE NEGATIVE (NEGATIVE); NITRITE,URINE NEGATIVE (NEGATIVE); OCCULT BLOOD,URINE MODERATE (NEGATIVE); PH,URINE 7.5 PH (5.0-7.5); PROTEIN,URINE 30 mg/dL (NEGATIVE); UROBILINOGEN,URINE 0.2 (NORMAL) E.U./dL (NORMAL)
[2019-04-27 08:57] LABS: CLARITY,URINE CLEAR (CLEAR)
[2019-04-27 09:04] LABS: BACTERIA,URINE Rare /HPF (None Seen); RBC,URINE 0-5 /HPF (0-5); SQUAMOUS EPITHELIAL CELL,UR RARE Squamous (<= Few)
--- NOTE | 2019-04-27 09:52 | XRAY Report ---
Reason: R shoulder pain, leukocytosis Procedure Date: 04/27/2019 Accession Number: [id number] / [id number] Procedure: XR - Chest 1 View X-Ray CPT Code: 32164 Final Report FULL RESULT: EXAM: CHEST RADIOGRAPHY EXAM DATE: 04/27/2019 09:21 AM. CLINICAL HISTORY: R shoulder pain, leukocytosis. COMPARISON: 02/13/2016 11:58 AM. TECHNIQUE: 1 view. FINDINGS: Lungs/Pleura: Persistent elevation right hemidiaphragm. Linear scar or subsegmental atelectasis are right lung base without change. Probable medial segment right middle lobe bronchiectasis. Hilar peribronchial thickening without change. Left hemidiaphragm indistinct. Mediastinum: No cardiac enlargement. Relative mediastinal widening as compared to 02/13/2016. Deviation of the trachea to the right. Possible thyromegaly. Other: None. IMPRESSION: 1. 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 2. Chronic elevation right hemidiaphragm. 3. Negative for acute cardiopulmonary process. 4. Probable bronchiectasis medial segment right middle lobe. 5. Superior mediastinal widening and mild deviation of the trachea to the right. Possible thyromegaly. [facility]
[2019-04-27] MEDS ORDERED: SODIUM CHLORIDE FLUSH 0.9% 10 ML SYRINGE IVP PRN (10:26)
[2019-04-27] MEDS ORDERED: PROCHLORPERAZINE 10 MG/2 ML VIAL IVP PRN (10:26)
[2019-04-27] MEDS ORDERED: DEXTROSE 5%-0.45% NACL 1,000 ML IV SCH (11:00)
--- NOTE | 2019-04-27 11:01 | HISTORY & PHYSICAL EXAMINATION ---
Chief Complaint - Chief Complaint Chief Complaint: RLQ abdominal pain, nausea, vomiting Abdominal Pain HPI - Admitted From Admitted from: ED - History Obtained From Records Reviewed: RN notes reviewed, Old records reviewed History obtained from: Patient, Family (, Kennedy) Exam limitations: Clinical condition - History of Present Illness Severity at the worst: Moderate Pain Quality: Sharp, Dull, Burning, Cramping, Other (RLQ) Context-Pain started w/: Movement, Palpation Timing: Abrupt onset Duration: Days: (began on 04/26 @ 1300) Improved with: Nothing Worsened by: Eating, Movement, Palpation Associated symptoms: Diaphoresis (while vomiting), Nausea, Vomiting, General Weakness HPI Comment/Other: Hannah Wyatt is a 84-year old female with a past medical history of autoimmune cholangitis, paroxysmal atrial fibrillation on Coumadin, urinary incontinence, hypertension, hypothyroidism, PVD, hyperlipidemia, CVA with residual left foot drop, obesity, compression fracture of L3, anxiety, recurrent UTI, anxiety, recent sciatica affecting pain in the right leg which started in March 2019, DJD, chronic back pain, renal cyst, osteopenia and neurogenic claudication. The patient states that starting in early March along with being diagnosed with sciatica,her bowel pattern changed and would have intermittent watery stools, then constipation. She has had a few ED visits for abdominal pain, nausea, & v omiting starting back in August 2017 but did not require a hospital stay and was self-limiting. Yesterday morning she ate pancakes with her as usual, and by lunch time, began to have nausea with RLQ pain that was so profound that it prevented her from sleeping at all last night. Her , Kennedy brought her into the ED this AM at 0630 with a main complaint of abdominal pain, abdominal bloating, diarrhea, and new right shoulder pain. Soon after arriving to the ED, she began vomiting green bile despite anti-emetics which has continued even after arriving to the inpatient nursing unit. Labs show an elevated WBC count of 21.4, Hgb 11.9, Hct 35.8, Neut # 17.0, PT 32.1, INR 3.0, sodium 135, potassium 3.5, creatinine 0.7, GFR 80, glucose 114, bilirubin 1.1, alk phos 132, negative high sensitivity troponin 7.2, total protein 6.2 with no other lab abnormalities. A urinalysis is negative for infection. An abdominal CT showed moderate volume of gas and feces in the colon. Otherwise, no acute abnormality. A chest x-ray showed probable bronchiectasis medial segment right middle lobe. Superior mediastinal widening and mild deviation of the trachea to the right. Possible thyromegaly. On my exam the patient was conversational, complained of a dry mouth and had only RLQ tenderness with deep palpation, with an otherwise unremarkable exam. By the end of my visit, she was vomiting up green bile despite getting Zofran a few minutes earlier. She will be admitted to observation to monitor for infection, and for intractable nausea with vomiting. PMH/PSH - Past Medical History Cardiovascular: positive: Hypertension, High cholesterol, Atrial fibrillation, Other Endocrine/Autoimmune: positive: HyPOthyroidism Musculoskeletal: positive: Osteoarthritis MRSA Hx?: No - Past Surgical History General: positive: Cholecystectomy Ortho: positive: Hip replacement Social & Family Hx - Living Situation Living Arrangement: At home Living Situation: With spouse/s.o. (independent at home with Kennedy and a large Lei cat named Juaquin) - Social History Does the pt smoke?: No Smoking Status: Former smoker (From age [age]) Does the pt drink ETOH?: No Does the pt have substance abuse?: No Additional Social History: The patient was an taxation accountant, now retired. The patient has 3 grown children. She admits to using tobacco from age [age]. No alochol or ilicit drug use. She wishes to be a DNI, and wants all cardiac resuscitation. - POLST Patient has POLST: No POLST Status: Full Code - Family History Family History: Mother: , CVA/TIA, Father: , Cancer, Sister: , CAD, Cancer, Brother: , Cancer Family History Comment/Other: Patient had 11 siblings, unknown causes of for most, sister of heart disease. 2 brothers in WWII. Meds/Allgy - Home Medications Home Medications: Ambulatory Orders Medication Instructions Recorded Confirmed ALPRAZolam [Xanax] 0.5 mg ORAL DAILY 10/12/14 04/27/19 Budesonide [Budesonide EC] 3 mg ORAL DAILY 10/12/14 04/27/19 Levothyroxine Sodium [Synthroid] 125 mcg ORAL DAILY 10/12/14 04/27/19 Losartan [Cozaar] 50 mg ORAL DAILY 10/12/14 04/27/19 Omeprazole [PriLOSEC] 20 mg ORAL DAILY 10/12/14 04/27/19 Simvastatin 10 mg ORAL DAILY 10/12/14 04/27/19 Warfarin Sodium [Coumadin] 6 mg ORAL DAILY 10/12/14 04/27/19 Fluticasone [Flonase] 1 spray NS DAILY 04/27/19 04/27/19 Garlic 1 tab PO DAILY 04/27/19 04/27/19 Lactobacillus Acidophilus 1 tab PO DAILY 04/27/19 04/27/19 [Probiotic Acidophilus] [place]-3/Dha/Epa/Fish Oil [Fish Oil 3,000 mg PO DAILY 04/27/19 04/27/19 1,000 mg Softgel] Prednisone [Lisa] 1 mg PO DAILY 04/27/19 04/27/19 - Allergies Allergies/Adverse Reactions: Allergies Allergy/AdvReac Type Severity Reaction Status Date / Time Sulfa (Sulfonamide Allergy Edema Verified 04/27/19 06:43 Antibiotics) Review of Systems - Constitutional Constitutional: reports: Fatigue, Weakness, Poor appetite, Diaphoresis - Eyes Eyes: reports: Vision loss - Ears, Nose & Throat Ears, Nose & Throat: reports: Dentures, Hoarseness - Cardiovascular Cariovascular: reports: Decr. exercise tolerance - Gastrointestinal Gastrointestinal: reports: Abdominal pain, Abdominal distention, Change in bowel habits, Nausea, Vomiting, Bile emesis, Reflux/heartburn, Bloating, Poor appetite - Genitourinary Genitourinary: reports: Incontinence (stress) - Musculoskeletal Musculoskeletal: reports: Back pain, Limited range of motion, Other (chronic left foot drop since her stroke ~9 years ago.) - Integumentary Integumentary: reports: Dryness - Neurological Neurological: reports: General weakness, Numbness (baseline BLE with decreased sensation, chronic numbness & tingling) - Psychiatric Psychiatric: reports: Anxiety (chronic) - Hematologic/Lymphatic Hematologic/Lymphatic: reports: Bruising, Bleeding tendencies (on coumadin), Re current infections (recurrent UTI) - All Other Systems All Other Systems: reports: Reviewed and negative Prior Level of Functionality: Uses a cane at home, cooks meals, no recent falls, independent at home with . Exam - Vital Signs Reviewed Vital Signs: Yes Vital Signs: Vital Signs x48h Temp Pulse Resp BP Pulse Ox 04/27/19 10:00 36.5 C 92 18 143/101 H 96 04/27/19 08:42 63 18 153/80 H 94 04/27/19 06:30 36.6 C 74 18 182/59 H 98 - Physical Exam General Appearance: positive: Alert, Moderate distress Eyes Bilateral: positive: No lid inflammation ENT: positive: Pharynx nml, Dry mucous membranes Neck: positive: Thyroid nml, Trachea midline Respiratory: positive: Chest non-tender, No respiratory distress, Breath sounds nml Cardiovascular: positive: Regular rate & rhythm, No gallop, Systolic murmur, Decreased pulse(s) Peripheral Pulses: positive: 1+ Abdomen: positive: Tenderness (with deep palpation), Guarding, Abnml bowel sounds (hyperactive), Other (distended, soft) Back: positive: Nml inspection Skin: positive: No rash, Warm, Dry Extremities: positive: Non-tender, Pedal edema, Other Neurologic/Psychiatric: positive: Oriented x3, CN's nml (2-12), Motor nml, Weakness, Sensory loss Reflexes: Bicep (R): 3+, Bicep (L): 3+ Results - Lab Results Lab results reviewed: Yes Fish Bones: 04/27/19 15:52 04/27/19 15:52 Other Lab Results: Lab Results x24hrs 04/27/19 04/27/19 04/27/19 Range/Units 08:37 07:01 07:01 WBC (4.8-10.8) x10^3/uL RBC (4.20-5.40) 10^6/uL Hgb (12.0-16.0) g/dL Hct (37.0-47.0) % MCV (81.0-99.0) fL MCH (27.0-31.0) pg MCHC (32.0-36.0) g/dL RDW (12.0-15.0) % Plt Count (130-450) 10^3/uL MPV (7.9-10.8) fL Neut # (Auto) (1.5-6.6) 10^3/uL Lymph # (Auto) (1.5-3.5) 10^3/uL Hill # (Auto) (0.0-1.0) 10^3/uL Eos # (Auto) (0.0-0.7) 10^3/uL Baso # (Auto) (0.0-0.1) 10^3/uL Absolute Nucleated RBC x10^3/uL Band Neuts % (Manual) Abnorm Lymph % (Manual) Nucleated RBC % /100WBC Neutrophils # (Manual) Lymphocytes # (Manual) Monocytes # (Manual) Eosinophils # (Manual) Basophils # (Manual) Differential Comment WBC Morphology (NORMAL) Platelet Estimate (NORMAL) Platelet Morphology (NORMAL) RBC Morph Micro Appear (NORMAL) PT 32.1 H (9.9-12.6) secs INR 3.0 H (0.8-1.2) Sodium (135-145) mmol/L Potassium (3.5-5.0) mmol/L Chloride (101-111) mmol/L Carbon Dioxide (21-32) mmol/L Anion Gap (6-13) BUN (6-20) mg/dL Creatinine (0.4-1.0) mg/dL Estimated GFR (MDRD) (>89) Glucose (70-100) mg/dL Calcium (8.5-10.3) mg/dL Total Bilirubin (0.2-1.0) mg/dL AST (10-42) IU/L ALT (10-60) IU/L Alkaline Phosphatase (42-121) IU/L Troponin I High Sens 7.2 (2.3-14.8) ng/L Total Protein (6.7-8.2) g/dL Albumin (3.2-5.5) g/dL Globulin (2.1-4.2) g/dL Albumin/Globulin Ratio (1.0-2.2) Lipase (22-51) U/L Urine Color YELLOW Urine Clarity CLEAR (CLEAR) Urine pH 7.5 (5.0-7.5) PH Ur Specific Allen <=1.005 (1.002-1.030) Urine Protein 30 H (NEGATIVE) mg/dL Urine Glucose (UA) NEGATIVE (NEGATIVE) mg/dL Urine Ketones NEGATIVE (NEGATIVE) mg/dL Urine Occult Blood MODERATE H (NEGATIVE) Urine Nitrite NEGATIVE (NEGATIVE) Urine Bilirubin NEGATIVE (NEGATIVE) Urine Urobilinogen 0.2 (NORMAL) (NORMAL) E.U./dL Ur Leukocyte Esterase NEGATIVE (NEGATIVE) Urine RBC 0-5 (0-5) /HPF Urine WBC 0-3 (0-5) /HPF Ur Squamous Epith Cells RARE Squamous (<= Few) Urine Bacteria Rare (None Seen) /HPF Ur Microscopic Review INDICATED Urine Culture Comments NOT INDICATED 04/27/19 04/27/19 Range/Units 07:01 07:01 WBC 21.4 H (4.8-10.8) x10^3/uL RBC 3.99 L (4.20-5.40) 10^6/uL Hgb 11.9 L (12.0-16.0) g/dL Hct 35.8 L (37.0-47.0) % MCV 89.7 (81.0-99.0) fL MCH 29.8 (27.0-31.0) pg MCHC 33.2 (32.0-36.0) g/dL RDW 13.9 (12.0-15.0) % Plt Count 449 (130-450) 10^3/uL MPV 10.5 (7.9-10.8) fL Neut # (Auto) 17.0 H (1.5-6.6) 10^3/uL Lymph # (Auto) 1.9 (1.5-3.5) 10^3/uL Hill # (Auto) 2.0 H (0.0-1.0) 10^3/uL Eos # (Auto) 0.2 (0.0-0.7) 10^3/uL Baso # (Auto) 0.1 (0.0-0.1) 10^3/uL Absolute Nucleated RBC 0.00 x10^3/uL Band Neuts % (Manual) Not Reportable Abnorm Lymph % (Manual) Not Reportable Nucleated RBC % 0.0 /100WBC Neutrophils # (Manual) Not Reportable Lymphocytes # (Manual) Not Reportable Monocytes # (Manual) Not Reportable Eosinophils # (Manual) Not Reportable Basophils # (Manual) Not Reportable Differential Comment MANUAL=AUTO DIFF WBC Morphology NORMAL APPEARANCE (NORMAL) Platelet Estimate INCREASED (>450,000) (NORMAL) Platelet Morphology NORMAL ANDREY (NORMAL) RBC Morph Micro Appear 1+ HYPOCHROMASIA (NORMAL) PT (9.9-12.6) secs INR (0.8-1.2) Sodium 135 (135-145) mmol/L Potassium 3.5 (3.5-5.0) mmol/L Chloride 101 (101-111) mmol/L Carbon Dioxide 25 (21-32) mmol/L Anion Gap 9.0 (6-13) BUN 14 (6-20) mg/dL Creatinine 0.7 (0.4-1.0) mg/dL Estimated GFR (MDRD) 80 L (>89) Glucose 114 H (70-100) mg/dL Calcium 8.9 (8.5-10.3) mg/dL Total Bilirubin 1.1 H (0.2-1.0) mg/dL AST 39 (10-42) IU/L ALT 37 (10-60) IU/L Alkaline Phosphatase 132 H (42-121) IU/L Troponin I High Sens (2.3-14.8) ng/L Total Protein 6.2 L (6.7-8.2) g/dL Albumin 3.5 (3.2-5.5) g/dL Globulin 2.7 (2.1-4.2) g/dL Albumin/Globulin Ratio 1.3 (1.0-2.2) Lipase 37 (22-51) U/L Urine Color Urine Clarity (CLEAR) Urine pH (5.0-7.5) PH Ur Specific Allen (1.002-1.030) Urine Protein (NEGATIVE) mg/dL Urine Glucose (UA) (NEGATIVE) mg/dL Urine Ketones (NEGATIVE) mg/dL Urine Occult Blood (NEGATIVE) Urine Nitrite (NEGATIVE) Urine Bilirubin (NEGATIVE) Urine Urobilinogen (NORMAL) E.U./dL Ur Leukocyte Esterase (NEGATIVE) Urine RBC (0-5) /HPF Urine WBC (0-5) /HPF Ur Squamous Epith Cells (<= Few) Urine Bacteria (None Seen) /HPF Ur Microscopic Review Urine Culture Comments - Diagnostic Imaging Results Diagnostic Imaging Results: positive: Final report reviewed Diagnostic Imaging Results Comments: EXAM: CT ABDOMEN AND PELVIS WITH IV CONTRAST EXAM DATE: 04/27/2019 IMPRESSION: Moderate volume of gas and feces in the colon. Otherwise, no acute abnormality. Multiple chronic findings, as described in the report, unchanged from 08/22/2017. EXAM: CHEST RADIOGRAPHY EXAM DATE: 04/27/2019 09:21 AM. IMPRESSION: 1. 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 2. Chronic elevation right hemidiaphragm. 3. Negative for acute cardiopulmonary process. 4. Probable bronchiectasis medial segment right middle lobe. 5. Superior mediastinal widening and mild deviation of the trachea to the right. Possible thyromegaly. Impression/Plan - Problem List Problem List: Intractable nausea and vomiting -Continues to have small amounts of green bile emesis despite anti-emetics -Patient complains of abdominal fullness, lack of passing flatus, diarrhea prior to coming in this morning -Suspected from her known cholangitis. Differential diagnoses may be due to ischemic bowel, obstruction, or acute infection -Re-checking labs for increased WBC count, abdominal x-ray for obstruction -Continue with symptom management Leukocytosis -WBC count was elevated upon admission at 21, 13 upon recheck -Routine labs, monitor vital signs Abdominal wall pain in right lower quadrant -Pain is intermittent, worse with deep palpation -May be the result of abdominal distension -Continue to monitor, patient is refusing IV morphine as she thinks it is making her nausea worse Autoimmune cholangitis -Patient states she has had a full work up for this in the past, including an EGD and it is treated with low dose prednisone -Prior ED visits for similar symptoms Anticoagulated on Coumadin -Patient takes Warfarin at home for her atrial fibrillation, INR was 3.0 -Holding for now in the event she will need a surgical intervention Dehydration -Likely due to poor PO intake, now with emesis -Gentle IV fluids if needed, fluids were stopped earlier for patient complaints of ankle swelling -Routine labs, manage symptoms Chronic/stable diagnoses: Urinary incontinence Hypertension Hypothyroidism Chronic atrial fibrillation PVD (peripheral vascular disease) Hyperlipidemia CVA (cerebral vascular accident) Left foot drop Obesity (BMI 30.0-34.9) Compression fracture of L3 vertebra Anxiety 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
[2019-04-27] MEDS ORDERED: ONDANSETRON 4 MG/2 ML VIAL IVP PRN (14:00)
[2019-04-27] MEDS: PANTOPRAZOLE 40 MG VIAL IVP SCH ×2 (14:14→20:55)
[2019-04-27 16:07] LABS: HGB - HEMOGLOBIN 12.1 g/dL (12.0-16.0); MEAN CORPUSCULAR HEMOGLOBIN 30.1 pg (27.0-31.0); MEAN CORPUSCULAR HGB CONC 32.7 g/dL (32.0-36.0); MEAN PLATELET VOLUME 10.8 fL (7.9-10.8); NEUTROPHILS # (AUTO) 11.2 10^3/uL (1.5-6.6); NEUTROPHILS % (AUTO) 81.1 %; RED BLOOD COUNT 4.02 10^6/uL (4.20-5.40); RED CELL DISTRIBUTION WIDTH 14.2 % (12.0-15.0); WHITE BLOOD COUNT 13.8 x10^3/uL (4.8-10.8)
[2019-04-27 16:20] LABS: CALCIUM 9.1 mg/dL (8.5-10.3); CREATININE 0.7 mg/dL (0.4-1.0)
[2019-04-27 16:28] LABS: CRP - C-REACTIVE PROTEIN 4.2 mg/dL (0-1.0)
--- NOTE | 2019-04-27 16:47 | XRAY Report ---
Reason: evaluate for ileus Procedure Date: 04/27/2019 Accession Number: [id number] / [id number] Procedure: XR - Abdomen 1 View X-Ray CPT Code: 18566 Final Report FULL RESULT: EXAM: ABDOMEN RADIOGRAPHY EXAM DATE: 04/27/2019 04:27 PM. CLINICAL HISTORY: Evaluate for ileus. COMPARISON: ABDOMEN 2 VIEW 12/19/2016 11:02 AM ABDOMEN/PELVIS W/ 04/27/2019 7:41 AM ABDOMEN/PELVIS W/ 08/22/2017 3:45 PM. TECHNIQUE: 2 view. FINDINGS: Bowel Gas Pattern: Nonobstructive bowel gas pattern. Other: Chronic compression L3 vertebral body with a concave deformity of the superior vertebral body endplate and the 25% loss of vertebral body height. Osteopenia. Subsegmental atelectasis lung bases. Small quantity of contrast nondistended bladder. Right hip unipolar prosthesis. IMPRESSION: Nonspecific bowel gas pattern. RADIA
[2019-04-27 17:08] LABS: HEMOGLOBIN A1C 0.47 g/dL; HEMOGLOBIN A1C % 5.7 % (4.6-6.2)
[2019-04-27] MEDS: SODIUM CHLORIDE FLUSH 0.9% 10 ML SYRINGE IVP SCH ×2 (20:55→23:29)
[2019-04-28] MEDS ORDERED: diphenhydrAMINE 25 MG CAPSULE PO PRN (03:02)
[2019-04-28] MEDS ORDERED: ACETAMINOPHEN 325 MG TABLET PO PRN (03:02)
[2019-04-28] MEDS ORDERED: LEVOTHYROXINE 125 MCG TABLET PO SCH (07:00)
[2019-04-28 07:27] LABS: BASOPHILS # (AUTO) 0.1 10^3/uL (0.0-0.1); BASOPHILS % (AUTO) 0.5 %; EOSINOPHILS # (AUTO) 0.2 10^3/uL (0.0-0.7); EOSINOPHILS % (AUTO) 1.9 %; LYMPHOCYTES # (AUTO) 2.1 10^3/uL (1.5-3.5); LYMPHOCYTES % (AUTO) 18.7 %; MEAN CORPUSCULAR HEMOGLOBIN 29.7 pg (27.0-31.0); MEAN CORPUSCULAR HGB CONC 32.8 g/dL (32.0-36.0); MEAN CORPUSCULAR VOLUME 90.5 fL (81.0-99.0); MEAN PLATELET VOLUME 10.5 fL (7.9-10.8); MONOCYTES # (AUTO) 1.1 10^3/uL (0.0-1.0); MONOCYTES % (AUTO) 9.8 %; NEUTROPHILS # (AUTO) 7.7 10^3/uL (1.5-6.6); NEUTROPHILS % (AUTO) 68.6 %; PLT - PLATELET COUNT 397 10^3/uL (130-450); RED CELL DISTRIBUTION WIDTH 14.1 % (12.0-15.0); WHITE BLOOD COUNT 11.2 x10^3/uL (4.8-10.8)
[2019-04-28 07:42] LABS: ALBUMIN 3.2 g/dL (3.2-5.5); ALBUMIN/GLOBULIN RATIO 1.3 (1.0-2.2); BILIRUBIN,TOTAL 1.2 mg/dL (0.2-1.0); CALCIUM 8.6 mg/dL (8.5-10.3); CREATININE 0.8 mg/dL (0.4-1.0); MAGNESIUM 1.9 mg/dL (1.7-2.8); TOTAL PROTEIN 5.6 g/dL (6.7-8.2)
[2019-04-28] MEDS ORDERED: predniSONE 1 MG TABLET PO SCH (09:00)
[2019-04-28] MEDS ORDERED: ALPRAZolam 0.25 MG TABLET PO SCH (09:00)
[2019-04-28] MEDS ORDERED: LOSARTAN 50 MG TABLET PO SCH (09:00)
[2019-04-28] MEDS ORDERED: FLUTICASONE NASAL SPRAY NAS SCH (09:00)
[2019-04-28] MEDS ORDERED: WARFARIN 5 MG TABLET PO SCH ×3 (09:00→21:00)
[2019-04-28] MEDS ORDERED: WARFARIN 1 MG TABLET PO SCH ×4 (09:00→21:00)
[2019-04-28] MEDS: PANTOPRAZOLE 40 MG VIAL IVP SCH (09:07)
[2019-04-28] MEDS: SODIUM CHLORIDE FLUSH 0.9% 10 ML SYRINGE IVP SCH (09:10)
[2019-04-28 09:38] VITALS: BP 170/81
--- NOTE | 2019-04-28 13:11 | PHARMACY PROGRESS NOTE ---
- Best Possible Medication History Admit Date and Time: 04/27/19 1026 Processed by: Pharmacy Medication History completed: Yes Patient Interview: Completed Secondary Source(s): Physician records, Pharmacy records As the person ultimately responsible for medication therapy, providers are able to order a medication from an existing home medication list in [facility] via the "Reconcile Routine" prior to Confirmation of that medication by administrative support assistant. Such practice is discouraged except when the physician, in their clinical judgment, deems that a medical need exists for a medication without regard to previous use.
[2019-04-28] MEDS ORDERED: ALPRAZolam 0.25 MG TABLET PO PRN (13:12)
--- NOTE | 2019-04-28 13:17 | Discharge Plan ---
Discharge Plan Problem Reviewed?: Yes Disposition: Home, Self Care Condition: Good Prescriptions: Ondansetron Odt [Zofran] 4 mg TL Q6H PRN #20 tablet PRN Reason: Nausea / Vomiting Prednisone 5 mg PO DAILY #30 tablet Diet: Regular Activity Restrictions: No Restrictions Health Concerns: Autoimmune cholangitis Nausea with vomiting Abdominal bloating Plan of Treatment: Increase your prednisone dose to 5 mg daily to prevent further flare-ups Take the Zofran for nausea Eat a balanced meal and avoid eating after 6-7PM at night See your primary care provider within one week Care Goals: Prevent flare ups Prevent extra doctors visits, ED visits Assessment: Your symptoms subsided after one night of stay and the final conclusion was made based on the disorder that you already have; autoimmune cholangitis or hepatitis. You were medically stable, tolerating meals, and less abdominal bloating, so ready for discharge. No Smoking: If you smoke, Please STOP! Call for help. Follow-up with: Alexx Engel MD [Primary Care Provider] -
--- NOTE | 2019-04-28 13:50 | DISCHARGE SUMMARY ---
Discharge Summary Admit Date: 04/27/19 Discharge Date: 04/28/19 Discharging Provider: Radha Arredondo Primary Care Provider: Brodie Engel Code Status: Attempt Resuscitation Condition at Discharge: Good Discharge Disposition: 01 Home, Self Care - DIAGNOSES Admission Diagnoses: Intractable nausea and vomiting Leukocytosis Abdominal wall pain in right lower quadrant Autoimmune cholangitis Anticoagulated on Coumadin Dehydration Urinary incontinence Hypertension Hypothyroidism Chronic atrial fibrillation PVD (peripheral vascular disease) Hyperlipidemia CVA (cerebral vascular accident) Left foot drop Obesity (BMI 30.0-34.9) Compression fracture of L3 vertebra Anxiety 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 DJD (degenerative joint disease) Discharge Diagnoses with Status of Each Condition: Intractable nausea and vomiting-Resolved Leukocytosis- WBC count up to 21.4, down to 11.2 upon discharged, likely due to stress response Abdominal wall pain in right lower quadrant-Likely due to an exacerbation of chronic cholangitis, increased daily steroid dose from 1mg to 5mg, follow up with PCP Autoimmune cholangitis-Chronic, increased daily prednisone dose, stable Anticoagulated on Coumadin-INR 3.0, skipped one dose, resume as usual Dehydration-Resolved Urinary incontinence-Chronic, stable Hypertension-Chronic, stable Hypothyroidism-Chronic, stable Chronic atrial fibrillation-Chronic, stable PVD (peripheral vascular disease)-Chronic, stable Hyperlipidemia-Chronic, stable CVA (cerebral vascular accident)-Chronic, stable Left foot drop-Chronic, stable Obesity (BMI 30.0-34.9)-Chronic, stable Compression fracture of L3 vertebra-Chronic, stable Anxiety-Chronic, stable 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 The patient states that starting in early March along with being diagnosed with sciatica,her bowel pattern changed and would have intermittent watery stools, then constipation. She has had a few ED visits for abdominal pain, nausea, & vomiting starting back in August 2017 but did not require a hospital stay and was self-limiting. Yesterday morning she ate pancakes with her as usual, and by lunch time, began to have nausea with RLQ pain that was so profound that it prevented her from sleeping at all last night. Her , Kennedy brought her into the ED this AM at 0630 with a main complaint of abdominal pain, abdominal bloating, diarrhea, and new right shoulder pain. Soon after arriving to the ED, she began vomiting green bile despite anti-emetics which has continued even after arriving to the inpatient nursing unit. Labs show an elevated WBC count of 21.4, Hgb 11.9, Hct 35.8, Neut # 17.0, PT 32.1, INR 3.0, sodium 135, potassium 3.5, creatinine 0.7, GFR 80, glucose 114, bilirubin 1.1, alk phos 132, negative high sensitivity troponin 7.2, total protein 6.2 with no other lab abnormalities. A urinalysis is negative for infection. An abdominal CT showed moderate volume of gas and feces in the colon. Otherwise, no acute abnormality. A chest x-ray showed probable bronchiectasis medial segment right middle lobe. Superior mediastinal widening and mild deviation of the trachea to the right. Possible thyromegaly. On my exam the patient was conversational, complained of a dry mouth and had only RLQ tenderness with deep palpation, with an otherwise unremarkable exam. By the end of my visit, she was vomiting up green bile despite getting Zofran a few minutes earlier. She will be admitted t o observation to monitor for infection, and for intractable nausea with vomiting. - HOSPITAL COURSE Hospital Course: The patient had one hospital night of stay for symptom management which resolved with bowel rest, and anti-emetics. The final conclusion was made based on the patient's history of autoimmune cholangitis or hepatitis. The patient was medically stable, tolerating meals, and had less abdominal bloating, so she was discharged home with her . - ALLERGIES Allergies/Adverse Reactions: Allergies Allergy/AdvReac Type Severity Reaction Status Date / Time sertraline Allergy Unknown Verified 04/28/19 15:58 Sulfa (Sulfonamide Allergy Edema Verified 04/27/19 06:43 Antibiotics) - MEDICATIONS Home Medications: Ambulatory Orders Medication Instructions Recorded Confirmed Budesonide [Budesonide EC] 6 mg PO DAILY 10/12/14 04/28/19 Levothyroxine Sodium [Synthroid] 125 mcg PO DAILY 10/12/14 04/28/19 Omeprazole [PriLOSEC] 20 mg PO DAILY 10/12/14 04/28/19 Simvastatin 5 mg PO QPM 10/12/14 04/28/19 Warfarin Sodium [Coumadin] 6 mg PO TUFR@209910/12/14 04/28/19 Fluticasone [Flonase] 1 spray NS DAILY 04/27/19 04/27/19 Garlic 1 tab PO DAILY 04/27/19 04/27/19 Lactobacillus Acidophilus 1 tab PO DAILY 04/27/19 04/27/19 [Probiotic Acidophilus] [place]-3/Dha/Epa/Fish Oil [Fish Oil 3,000 mg PO DAILY 04/27/19 04/27/19 1,000 mg Softgel] ALPRAZolam [Alprazolam] 0.25 - 0.5 mg PO TID PRN 04/28/19 04/28/19 Losartan Potassium 25 mg PO DAILY 04/28/19 04/28/19 Metoprolol Succinate [Toprol Xl] 25 mg PO DAILY 04/28/19 04/28/19 Ondansetron Odt [Zofran] 4 mg TL Q6H PRN #20 tablet 04/28/19 Prednisone 5 mg PO DAILY #30 tablet 04/28/19 Warfarin Sodium 3 mg PO SUMOWETHSA@209904/28/19 04/28/19 predniSONE [Deltasone] 2 mg PO DAILYWM 04/28/19 04/28/19 ursodioL [Jordon 250] 250 mg PO TID 04/28/19 04/28/19 - PHYSICAL EXAM AT DISCHARGE General Appearance: positive: No acute distress, Alert Eyes Bilateral: positive: PERRL, No lid inflammation ENT: positive: Pharynx nml, No signs of dehydration Neck: positive: Thyroid nml, No JVD, Trachea midline Respiratory: positive: Chest non-tender, No respiratory distress, Breath sounds nml Cardiovascular: positive: Regular rate & rhythm, No gallop, Systolic murmur Peripheral Pulses: positive: 1+ Abdomen: positive: Non-tender, Nml bowel sounds, Hepatomegaly, Other (obese, soft) Back: positive: Nml inspection Skin: positive: No rash, Warm, Dry Extremities: positive: Non-tender, Full ROM, Pedal edema (dependent-BLE) Neurologic/Psychiatric: positive: Oriented x3, CN's nml (2-12), Motor nml, Sensation nml, Mood/affect nml Reflexes: Bicep (R): 3+, Bicep (L): 3+, Ankle (R): 3+, Ankle (L): 3+ - LABS Result Diagrams: 04/28/19 07:23 04/28/19 07:23 - FOLLOW UP Follow Up: Health Concerns: Autoimmune cholangitis Nausea with vomiting Abdominal bloating Plan of Treatment: Increase your prednisone dose to 5 mg daily to prevent further flare-ups Take the Zofran for nausea Eat a balanced meal and avoid eating after 6-7PM at night See your primary care provider within one week Care Goals: Prevent flare ups Prevent extra doctors visits, ED visits Assessment: Your symptoms subsided after one night of stay and the final conclusion was made based on the disorder that you already have; autoimmune cholangitis or hepatitis. You were medically stable, tolerating meals, and less abdominal bloating, so ready for discharge. - TIME SPENT Time Spent in Discharge (Minutes): 65
[2019-04-29] MEDS ORDERED: predniSONE 1 MG TABLET PO SCH (08:00)
[2019-04-29] MEDS ORDERED: LOSARTAN 50 MG TABLET PO SCH (09:00)
[2019-04-29] MEDS ORDERED: METOPROLOL SUCCINATE 25 MG TABLET PO SCH (09:00)
[2019-04-29] MEDS ORDERED: WARFARIN 1 MG TABLET PO SCH (21:00)
== END 2019-04-28 14:32 | disposition home or self-care (01) ==
LOC: ED 06:28 → MS2 10:26
PROVIDERS: ADMIT Nurse Practitioner; ATTEND Nurse Practitioner
DX: R11.14 Bilious vomiting (principal); R10.31 Right lower quadrant pain; R10.813 Right lower quadrant abdominal tenderness; R19.7 Diarrhea, unspecified; M25.511 Pain in right shoulder; D72.829 Elevated white blood cell count, unspecified; K83.09 Other cholangitis; E86.0 Dehydration; D64.9 Anemia, unspecified; I48.0 Paroxysmal atrial fibrillation; I10 Essential (primary) hypertension; E03.9 Hypothyroidism, unspecified; E78.5 Hyperlipidemia, unspecified; F41.9 Anxiety disorder, unspecified; E66.9 Obesity, unspecified; I69.398 Other sequelae of cerebral infarction; M21.372 Foot drop, left foot; Z90.49 Acquired absence of other specified parts of digestive tract; Z79.01 Long term (current) use of anticoagulants; Z79.899 Other long term (current) drug therapy; Z79.52 Long term (current) use of systemic steroids; Z68.31 Body mass index [BMI] 31.0-31.9, adult; Z87.440 Personal history of urinary (tract) infections; Z87.891 Personal history of nicotine dependence
CPT/HCPCS: 36415; 51701; 71045; 74018; 74177; 80048; 80053; 81001; 82150; 82977; 83036; 83605; 83690; 83735; 84443; 84478; 84484; 85025; 85027; 85610; 86140; 87040; 93005; 96361; 96374; 96375; 96376; 99285; A9270; G0378; J7120; J7512; Q9967; 81003; 87086

== ENCOUNTER 2019-05-07 14:28 | Outpatient (CLI) | payer MEDICARE ==
[2019-05-07 18:56] LABS: BASOPHILS # (AUTO) 0.1 10^3/uL (0.0-0.1); EOSINOPHILS # (AUTO) 0.1 10^3/uL (0.0-0.7); EOSINOPHILS % (AUTO) 0.7 %; LYMPHOCYTES # (AUTO) 1.5 10^3/uL (1.5-3.5); LYMPHOCYTES % (AUTO) 14.3 %; MEAN CORPUSCULAR HEMOGLOBIN 28.9 pg (27.0-31.0); MEAN CORPUSCULAR HGB CONC 31.6 g/dL (32.0-36.0); MEAN CORPUSCULAR VOLUME 91.3 fL (81.0-99.0); MEAN PLATELET VOLUME 11.8 fL (7.9-10.8); MONOCYTES # (AUTO) 0.7 10^3/uL (0.0-1.0); MONOCYTES % (AUTO) 6.4 %; NEUTROPHILS # (AUTO) 8.2 10^3/uL (1.5-6.6); NEUTROPHILS % (AUTO) 76.8 %; PLT - PLATELET COUNT 579 10^3/uL (130-450); RED CELL DISTRIBUTION WIDTH 14.6 % (12.0-15.0); WHITE BLOOD COUNT 10.7 x10^3/uL (4.8-10.8)
[2019-05-07 19:04] LABS: ALBUMIN 3.8 g/dL (3.2-5.5); ALBUMIN/GLOBULIN RATIO 1.3 (1.0-2.2); BILIRUBIN,TOTAL 0.7 mg/dL (0.2-1.0); CALCIUM 9.2 mg/dL (8.5-10.3); CREATININE 0.8 mg/dL (0.4-1.0); TOTAL PROTEIN 6.8 g/dL (6.7-8.2)
== END 2019-05-07 23:59 | disposition home or self-care (01) ==
LOC: LAB.WCP 14:28
PROVIDERS: ATTEND Family Medicine
DX: D72.829 Elevated white blood cell count, unspecified (principal); K83.09 Other cholangitis; I48.0 Paroxysmal atrial fibrillation
CPT/HCPCS: 36415; 80053; 85025; 85651

== ENCOUNTER 2019-06-08 08:00 | Outpatient (CLI) | payer MEDICARE | END 2019-06-08 23:59 | disposition home or self-care (01) | LOC: LAB.WCP 08:00 | PROVIDERS: ATTEND Physician Assistant Medical | DX: Z79.01 Long term (current) use of anticoagulants (principal); I48.0 Paroxysmal atrial fibrillation; I63.9 Cerebral infarction, unspecified ==

== ENCOUNTER 2019-07-06 08:00 | Outpatient (CLI) | payer MEDICARE | END 2019-07-06 23:59 | disposition home or self-care (01) | LOC: LAB.WCP 08:00 | PROVIDERS: ATTEND Family Medicine | DX: I48.0 Paroxysmal atrial fibrillation (principal); I63.9 Cerebral infarction, unspecified; Z79.01 Long term (current) use of anticoagulants ==

== ENCOUNTER 2019-07-16 08:00 | Outpatient (CLI) | payer MEDICARE ==
[2019-07-16 11:44] LABS: BASOPHILS # (AUTO) 0.1 10^3/uL (0.0-0.1); BASOPHILS % (AUTO) 1.2 %; EOSINOPHILS # (AUTO) 0.7 10^3/uL (0.0-0.7); EOSINOPHILS % (AUTO) 6.8 %; HGB - HEMOGLOBIN 13.1 g/dL (12.0-16.0); LYMPHOCYTES # (AUTO) 3.7 10^3/uL (1.5-3.5); LYMPHOCYTES % (AUTO) 34.3 %; MEAN CORPUSCULAR HEMOGLOBIN 29.9 pg (27.0-31.0); MEAN CORPUSCULAR VOLUME 93.6 fL (81.0-99.0); MEAN PLATELET VOLUME 11.6 fL (7.9-10.8); MONOCYTES # (AUTO) 1.2 10^3/uL (0.0-1.0); MONOCYTES % (AUTO) 10.9 %; NEUTROPHILS % (AUTO) 46.1 %; PLT - PLATELET COUNT 469 10^3/uL (130-450); RED BLOOD COUNT 4.38 10^6/uL (4.20-5.40); RED CELL DISTRIBUTION WIDTH 14.5 % (12.0-15.0); WHITE BLOOD COUNT 10.8 x10^3/uL (4.8-10.8)
[2019-07-16 12:06] LABS: ALBUMIN 3.6 g/dL (3.2-5.5); ALBUMIN/GLOBULIN RATIO 1.2 (1.0-2.2); ALKALINE PHOSPHATASE 110 IU/L (42-121); ALT ALANINE AMINOTRANSFERASE 35 IU/L (10-60); AST ASPARTATE AMINOTRANSFERASE 36 IU/L (10-42); BILIRUBIN,TOTAL 0.6 mg/dL (0.2-1.0); BUN - BLOOD UREA NITROGEN 16 mg/dL (6-20); CALCIUM 9.2 mg/dL (8.5-10.3); CARBON DIOXIDE - CO2 24 mmol/L (21-32); CHLORIDE 99 mmol/L (101-111); CHOL/HDL RATIO 3.4 (<4.4); CHOLESTEROL 171 mg/dL; CREATININE 0.8 mg/dL (0.4-1.0); GLUCOSE 91 mg/dL (70-100); HDL CHOLESTEROL 51 mg/dL; LDL CHOLESTEROL,CALCULATED 100 mg/dL; SODIUM 136 mmol/L (135-145); TOTAL PROTEIN 6.5 g/dL (6.7-8.2); VLDL CHOLESTEROL 20 mg/dL
[2019-07-16 12:12] LABS: HB2 TOTAL 13.9 g/dL; HEMOGLOBIN A1C 0.48 g/dL; HEMOGLOBIN A1C % 5.3 % (4.6-6.2)
== END 2019-07-16 23:59 | disposition home or self-care (01) ==
LOC: LAB.WCP 08:00
PROVIDERS: ATTEND Family Medicine
DX: K83.09 Other cholangitis (principal); I10 Essential (primary) hypertension; F41.9 Anxiety disorder, unspecified; I48.0 Paroxysmal atrial fibrillation; Z12.31 Encounter for screening mammogram for malignant neoplasm of breast; E78.5 Hyperlipidemia, unspecified; E03.9 Hypothyroidism, unspecified
CPT/HCPCS: 36415; 80053; 80061; 83036; 83721; 84443; 85025

== ENCOUNTER 2019-08-03 08:00 | Outpatient (CLI) | payer MEDICARE | END 2019-08-03 23:59 | disposition home or self-care (01) | LOC: LAB.WCP 08:00 | PROVIDERS: ATTEND Family Medicine | DX: I48.0 Paroxysmal atrial fibrillation (principal); Z79.01 Long term (current) use of anticoagulants; I63.9 Cerebral infarction, unspecified ==

== ENCOUNTER 2019-08-31 08:00 | Outpatient (CLI) | payer MEDICARE | END 2019-08-31 23:59 | disposition home or self-care (01) | LOC: LAB.WCP 08:00 | PROVIDERS: ATTEND Family Medicine | DX: I48.0 Paroxysmal atrial fibrillation (principal); Z79.01 Long term (current) use of anticoagulants; I63.9 Cerebral infarction, unspecified ==

== ENCOUNTER 2019-09-28 08:00 | Outpatient (CLI) | payer MEDICARE | END 2019-09-28 23:59 | disposition home or self-care (01) | LOC: LAB.WCP 08:00 | PROVIDERS: ATTEND Family Medicine | DX: I63.9 Cerebral infarction, unspecified (principal); Z79.01 Long term (current) use of anticoagulants ==

== ENCOUNTER 2019-10-13 16:55 | Outpatient (CLI) | payer MEDICARE ==
[2019-10-13 18:41] LABS: CALCIUM 8.9 mg/dL (8.5-10.3); CREATININE 0.7 mg/dL (0.4-1.0)
== END 2019-10-13 23:59 | disposition home or self-care (01) ==
LOC: LAB.WCP 16:55
PROVIDERS: ATTEND Nurse Practitioner Family
DX: R25.2 Cramp and spasm (principal)
CPT/HCPCS: 36415; 80048

== ENCOUNTER 2019-10-26 08:00 | Outpatient (CLI) | payer MEDICARE | END 2019-10-26 23:59 | disposition home or self-care (01) | LOC: LAB.WCP 08:00 | PROVIDERS: ATTEND Family Medicine | DX: I48.0 Paroxysmal atrial fibrillation (principal); Z79.01 Long term (current) use of anticoagulants ==

== ENCOUNTER 2019-11-23 08:00 | Outpatient (CLI) | payer MEDICARE | END 2019-11-23 23:59 | disposition home or self-care (01) | LOC: LAB.WCP 08:00 | PROVIDERS: ATTEND Family Medicine | DX: Z79.01 Long term (current) use of anticoagulants (principal); I48.0 Paroxysmal atrial fibrillation; I63.9 Cerebral infarction, unspecified ==

== ENCOUNTER 2019-12-14 09:24 | Outpatient (CLI) | payer MEDICARE ==
[2019-12-14 11:44] LABS: BASOPHILS # (AUTO) 0.1 10^3/uL (0.0-0.1); EOSINOPHILS # (AUTO) 0.2 10^3/uL (0.0-0.7); HGB - HEMOGLOBIN 12.7 g/dL (12.0-16.0); LYMPHOCYTES % (AUTO) 28.9 %; MEAN CORPUSCULAR HGB CONC 31.6 g/dL (32.0-36.0); MEAN CORPUSCULAR VOLUME 91.8 fL (81.0-99.0); MEAN PLATELET VOLUME 11.5 fL (7.9-10.8); MONOCYTES # (AUTO) 0.9 10^3/uL (0.0-1.0); NEUTROPHILS # (AUTO) 6.2 10^3/uL (1.5-6.6); NEUTROPHILS % (AUTO) 58.7 %; PLT - PLATELET COUNT 515 10^3/uL (130-450); RED BLOOD COUNT 4.38 10^6/uL (4.20-5.40); RED CELL DISTRIBUTION WIDTH 14.2 % (12.0-15.0); WHITE BLOOD COUNT 10.5 x10^3/uL (4.8-10.8)
[2019-12-14 12:15] LABS: ALBUMIN 3.7 g/dL (3.2-5.5); ALBUMIN/GLOBULIN RATIO 1.3 (1.0-2.2); BILIRUBIN,TOTAL 0.7 mg/dL (0.2-1.0); CALCIUM 9.3 mg/dL (8.5-10.3); CREATININE 0.7 mg/dL (0.4-1.0); TOTAL PROTEIN 6.6 g/dL (6.7-8.2)
[2019-12-14 13:20] LABS: HEMOGLOBIN A1c% 5.5 % (4.27-6.07)
== END 2019-12-14 23:59 | disposition home or self-care (01) ==
LOC: LAB.WCP 09:24
PROVIDERS: ATTEND Family Medicine
DX: I10 Essential (primary) hypertension (principal); R06.09 Other forms of dyspnea; E78.5 Hyperlipidemia, unspecified; E03.9 Hypothyroidism, unspecified; R53.83 Other fatigue; M35.3 Polymyalgia rheumatica
CPT/HCPCS: 36415; 80053; 83036; 83880; 84443; 85025

== ENCOUNTER 2019-12-22 08:00 | Outpatient (CLI) | payer MEDICARE | END 2019-12-22 23:59 | disposition home or self-care (01) | LOC: LAB.WCP 08:00 | PROVIDERS: ATTEND Family Medicine | DX: I48.0 Paroxysmal atrial fibrillation (principal); Z79.01 Long term (current) use of anticoagulants; I63.9 Cerebral infarction, unspecified ==

== ENCOUNTER 2020-01-07 09:09 | Outpatient (CLI) | payer MEDICARE | END 2020-01-07 09:10 | disposition critical access hospital (66) | LOC: EMS 09:09 | PROVIDERS: ATTEND Surgery | DX: M54.5 Low back pain (principal); W18.39XA Other fall on same level, initial encounter | CPT/HCPCS: A0425; A0429 ==

== ENCOUNTER 2020-01-07 09:39 | Emergency (ER) | payer MEDICARE ==
--- NOTE | 2020-01-07 10:09 | ED Physician Documentation ---
History of Present Illness - Stated complaint Stated Complaint: LOW BACK PX - Chief complaint Chief Complaint: Trauma Ch/Bk - History obtained from History obtained from: Patient, EMS - History of Present Illness Timing: How many days ago (5) Pain level max: 7 Pain level now: 5 - Additonal information Additional information: 84-year-old female presents to the emergency department stating that she was in her bathroom several days ago when her right knee gave out, she fell forward onto her hands and knees on the floor. Had difficulty getting up. No pain initially, but gradually has developed left-sided low back/pelvis pain. Worse with movement. Better with rest. Took Tylenol without relief. She is on warfarin. No loss of bowel or bladder control. Has not seen her doctor for this. She states the pain is better with sitting up as well. No numbness or tingling. Review of Systems Constitutional: denies: Fever, Chills Respiratory: denies: Dyspnea, Cough GI: denies: Vomiting, Diarrhea : denies: Dysuria Skin: denies: Rash Musculoskeletal: denies: Neck pain, Back pain Neurologic: denies: Focal weakness, Numbness, Confused, Headache PD PAST MEDICAL HISTORY - Past Medical History Past Medical History: Yes Cardiovascular: Hypertension, High cholesterol, Atrial fibrillation, Other Respiratory: None Neuro: CVA Endocrine/Autoimmune: HyPOthyroidism GI: None : Incontinence Psych: None Musculoskeletal: Osteoarthritis Derm: Herpes zoster - Past Surgical History Past Surgical History: Yes General: Cholecystectomy Ortho: Hip replacement HEENT: Tonsil/Adenoidectomy - Present Medications Home Medications: Ambulatory Orders Medication Instructions Recorded Confirmed Budesonide [Budesonide EC] 3 mg PO DAILY 10/12/14 01/07/20 Levothyroxine Sodium [Synthroid] 125 mcg PO DAILY 10/12/14 01/07/20 Omeprazole [PriLOSEC] 20 mg PO DAILY 10/12/14 01/07/20 Simvastatin 5 mg PO QPM 10/12/14 01/07/20 Warfarin Sodium [Coumadin] 6 mg PO TUFR@2100 10/12/14 01/07/20 Fluticasone [Flonase] 1 spray NS DAILY 04/27/19 04/27/19 Garlic 1 tab PO DAILY 04/27/19 01/07/20 Lactobacillus Acidophilus 1 tab PO DAILY 04/27/19 01/07/20 [Probiotic Acidophilus] [place]-3/Dha/Epa/Fish Oil [Fish Oil 3,000 mg PO DAILY 04/27/19 01/07/20 1,000 mg Softgel] ALPRAZolam [Alprazolam] 0.2 mg PO TID PRN 04/28/19 01/07/20 Losartan Potassium 25 mg PO DAILY 04/28/19 01/07/20 Metoprolol Succinate [Toprol Xl] 25 mg PO DAILY 04/28/19 01/07/20 Ondansetron Odt [Zofran] 4 mg TL Q6H PRN #20 tablet 04/28/19 Warfarin Sodium 3 mg PO SUMOWETHSA@2100 04/28/19 01/07/20 predniSONE [Deltasone] 2 mg PO DAILYWM 04/28/19 04/28/19 ursodioL [Jordon 250] 250 mg PO TID 04/28/19 04/28/19 Ondansetron Odt [Zofran] 4 mg TL Q6H PRN #10 tablet 01/07/20 Oxycodone HCl 2.5 - 5 mg PO Q6H PRN #14 tablet 01/07/20 Prednisone 1 mg PO DAILY 01/07/20 01/07/20 - Allergies Allergies/Adverse Reactions: Allergies Allergy/AdvReac Type Severity Reaction Status Date / Time sertraline Allergy Unknown Verified 04/28/19 15:58 Sulfa (Sulfonamide Allergy Edema Verified 04/27/19 06:43 Antibiotics) - Social History Does the pt smoke?: No Smoking Status: Never smoker Does the pt drink ETOH?: No Does the pt have substance abuse?: No - Immunizations Immunizations are current?: Yes - POLST Patient has POLST: No POLST Status: Full Code PD ED PE NORMAL - Vitals Vital signs reviewed: Yes - General General: Alert and oriented X 3, No acute distress, Well developed/nourished - HEENT HEENT: Moist mucous membranes - Neck Neck: Supple, no meningeal sign - Cardiac Cardiac: RRR, Strong equal pulses - Respiratory Respiratory: No respiratory distress, Clear bilaterally - Abdomen Abdomen: Soft, Non tender, Non distended - Back Back: No spinal TTP (No midline tenderness to palpation or percussion. No step- off or deformity. Mild tenderness over the left gluteus area. No hematoma. No bruising.) - Derm Derm: Warm and dry - Extremities Extremities: Other (Normal bilateral lower extremity patellar and ankle jerk reflexes. Normal great toe extension bilaterally. no saddle anesthesia) - Neuro Neuro: Alert and oriented X 3, No motor deficit, No sensory deficit - Psych Psych: Normal mood, Normal affect Results - Vitals Vitals: Vital Signs - 24 hr 01/07/20 01/07/20 01/07/20 09:40 09:55 11:48 Temperature 36.2 C L 36.2 C L 36.6 C Heart Rate 73 82 72 Respiratory 16 16 16 Rate Blood Pressure 136/62 H 136/62 H 140/115 H O2 Saturation 100 100 97 01/07/20 01/07/20 12:32 12:55 Temperature 36.0 C L Heart Rate 85 Respiratory 18 Rate Blood Pressure 135/70 H 127/59 L O2 Saturation 100 Oxygen O2 Source Room air - Labs Labs: Laboratory Tests 01/07/20 01/07/20 01/07/20 10:15 10:15 10:35 WBC 12.7 H RBC 3.95 L Hgb 12.1 Hct 36.7 L MCV 92.9 MCH 30.6 MCHC 33.0 RDW 14.5 Plt Count 510 H MPV 10.6 Neut # (Auto) 9.4 H Lymph # (Auto) 1.5 [place] # (Auto) 1.3 H Eos # (Auto) 0.2 Baso # (Auto) 0.1 Absolute Nucleated RBC 0.00 Nucleated RBC % 0.0 PT INR Sodium 137 Potassium 4.2 Chloride 101 Carbon Dioxide 27 Anion Gap 9.0 BUN 16 Creatinine 0.8 Estimated GFR (MDRD) 68 L Glucose 110 H Calcium 9.1 Total Bilirubin 0.4 AST 34 ALT 27 Alkaline Phosphatase 128 H Total Protein 6.5 L Albumin 3.6 Globulin 2.9 Albumin/Globulin Ratio 1.2 Lipase 44 Urine Color YELLOW Urine Clarity CLEAR Urine pH 7.5 Ur Specific [place] 1.025 Urine Protein 100 H Urine Glucose (UA) NEGATIVE Urine Ketones NEGATIVE Urine Occult Blood NEGATIVE Urine Nitrite NEGATIVE Urine Bilirubin NEGATIVE Urine Urobilinogen 0.2 (NORMAL) Ur Leukocyte Esterase NEGATIVE Urine RBC 0-5 Urine WBC 4-5 Ur Squamous Epith Cells MOD Squamous H Urine Bacteria Moderate H Urine Casts 0-2 Hyaline Casts Urine Yeast PRESENT Ur Microscopic Review INDICATED Urine Culture Comments NOT INDICATED 01/07/20 10:45 WBC RBC Hgb Hct MCV MCH MCHC RDW Plt Count MPV Neut # (Auto) Lymph # (Auto) [place] # (Auto) Eos # (Auto) Baso # (Auto) Absolute Nucleated RBC Nucleated RBC % PT 30.4 H INR 2.9 H Sodium Potassium Chloride Carbon Dioxide Anion Gap BUN Creatinine Estimated GFR (MDRD) Glucose Calcium Total Bilirubin AST ALT Alkaline Phosphatase Total Protein Albumin Globulin Albumin/Globulin Ratio Lipase Urine Color Urine Clarity Urine pH Ur Specific [place] Urine Protein Urine Glucose (UA) Urine Ketones Urine Occult Blood Urine Nitrite Urine Bilirubin Urine Urobilinogen Ur Leukocyte Esterase Urine RBC Urine WBC Ur Squamous Epith Cells Urine Bacteria Urine Casts Urine Yeast Ur Microscopic Review Urine Culture Comments PD MEDICAL DECISION MAKING - ED course Complexity details: reviewed results, re-evaluated patient, considered differential, d/w patient ED course: No indication for x-rays. No bony tenderness. No significant lab abnormalities. Feels much better after pain medication and is ambulating without difficulty. Will prescribe her pain medication for home. Patient counseled regarding signs and symptoms for which I believe and urgent re- evaluation would be necessary. Patient with good understanding of and agreement to plan and is comfortable going home at this time This document was made in part using voice recognition software. While efforts are made to proofread this document, sound alike and grammatical errors may occur. Departure - Departure Disposition: 01 Home, Self Care Clinical Impression: Back pain Qualifiers: Back pain location: low back pain Chronicity: acute Back pain laterality: left Sciatica presence: without sciatica Qualified Code(s): M54.5 - Low back pain Condition: Good Instructions: ED Neck Back Pain General Follow-Up: Alexx Engel MD [Primary Care Provider] - Within 1 week Prescriptions: Oxycodone HCl 2.5 - 5 mg PO Q6H PRN #14 tablet PRN Reason: pain Ondansetron Odt [Zofran] 4 mg TL Q6H PRN #10 tablet PRN Reason: Nausea / Vomiting Comments: Follow-up with your doctor for further care. There are no significant lab abnormalities today. Imaging is not indicated at this time. Do not drink alcohol or drive while on narcotic pain medicine. Note that many narcotic pain relievers also contain tylenol/acetaminophen. Please ensure that your total dose of acetaminophen from all sources does not exceed 3 grams (3000mg) per day. You may constipated on this medication, take a stool softener such as "Colace" twice a day while you are on it. Also recommend a [id number] laxative such as senna or MiraLAX any day that you do not have a bowel movement. If you received narcotic pain medication in the emergency department, do not drive or operate machinery for the next 24 hours. Discharge Date/Time: 01/07/20 12:55
[2020-01-07 10:28] LABS: BASOPHILS # (AUTO) 0.1 10^3/uL (0.0-0.1); BASOPHILS % (AUTO) 0.9 %; EOSINOPHILS # (AUTO) 0.2 10^3/uL (0.0-0.7); EOSINOPHILS % (AUTO) 1.9 %; HGB - HEMOGLOBIN 12.1 g/dL (12.0-16.0); LYMPHOCYTES # (AUTO) 1.5 10^3/uL (1.5-3.5); MEAN CORPUSCULAR HEMOGLOBIN 30.6 pg (27.0-31.0); MEAN CORPUSCULAR VOLUME 92.9 fL (81.0-99.0); MEAN PLATELET VOLUME 10.6 fL (7.9-10.8); MONOCYTES # (AUTO) 1.3 10^3/uL (0.0-1.0); MONOCYTES % (AUTO) 10.4 %; NEUTROPHILS # (AUTO) 9.4 10^3/uL (1.5-6.6); NEUTROPHILS % (AUTO) 74.1 %; PLT - PLATELET COUNT 510 10^3/uL (130-450); RED BLOOD COUNT 3.95 10^6/uL (4.20-5.40); RED CELL DISTRIBUTION WIDTH 14.5 % (12.0-15.0); WHITE BLOOD COUNT 12.7 x10^3/uL (4.8-10.8)
[2020-01-07 10:48] LABS: ALBUMIN 3.6 g/dL (3.2-5.5); ALBUMIN/GLOBULIN RATIO 1.2 (1.0-2.2); BILIRUBIN,TOTAL 0.4 mg/dL (0.2-1.0); CALCIUM 9.1 mg/dL (8.5-10.3); CREATININE 0.8 mg/dL (0.4-1.0); TOTAL PROTEIN 6.5 g/dL (6.7-8.2)
[2020-01-07 10:49] LABS: BILIRUBIN,URINE NEGATIVE (NEGATIVE); GLUCOSE, URINE (UA) NEGATIVE (NEGATIVE); KETONES,URINE (UA) NEGATIVE (NEGATIVE); LEUKOCYTE ESTERASE, URINE NEGATIVE (NEGATIVE); NITRITE,URINE NEGATIVE (NEGATIVE); OCCULT BLOOD,URINE NEGATIVE (NEGATIVE); PH,URINE 7.5 PH (5.0-7.5); PROTEIN,URINE 100 mg/dL (NEGATIVE); UROBILINOGEN,URINE 0.2 (NORMAL) E.U./dL (NORMAL)
[2020-01-07 10:51] LABS: CLARITY,URINE CLEAR (CLEAR)
[2020-01-07 10:52] LABS: INR 2.9 (0.8-1.2); PT - PROTHROMBIN TIME 30.4 secs (9.9-12.6)
[2020-01-07] MEDS ORDERED: oxyCODONE 5 MG TABLET PO STA (10:55)
[2020-01-07 11:01] LABS: BACTERIA,URINE Moderate /HPF (None Seen); CASTS, URINE 0-2 Hyaline Casts /LPF; RBC,URINE 0-5 /HPF (0-5); SQUAMOUS EPITHELIAL CELL,UR MOD Squamous (<= Few); YEAST,URINE PRESENT
[2020-01-07] MEDS ORDERED: ONDANSETRON ODT 4 MG TABLET TL STA (12:41)
[2020-01-07 12:56] VITALS: BP 127/59
== END 2020-01-07 12:55 | disposition home or self-care (01) ==
LOC: EDUNIT# → ED 09:39
DX: M54.5 Low back pain (principal); W18.39XA Other fall on same level, initial encounter; Y92.002 Bathroom of unspecified non-institutional (private) residence as the place of occurrence of the external cause; I10 Essential (primary) hypertension; I48.91 Unspecified atrial fibrillation; Z79.01 Long term (current) use of anticoagulants
CPT/HCPCS: 36415; 80053; 81001; 83690; 85025; 85610; 99283; 99284; A9270; Q0162; 81003; 87086

== ENCOUNTER 2020-01-19 08:00 | Outpatient (CLI) | payer MEDICARE | END 2020-01-19 23:59 | disposition home or self-care (01) | LOC: LAB.WCP 08:00 | PROVIDERS: ATTEND Family Medicine | DX: Z79.01 Long term (current) use of anticoagulants (principal) ==

== ENCOUNTER 2020-02-10 16:54 | Inpatient (IN) | payer MEDICARE ==
--- NOTE | 2020-02-10 17:30 | ED Physician Documentation ---
History of Present Illness - Stated complaint Stated Complaint: FALL - Chief complaint Chief Complaint: Trauma Ext - Additonal information Additional information: 84-year-old female with a history of atrial fibrillation on Coumadin presents to the emergency department after a fall this afternoon. By report she was leaving the [address] [employer] and stepped off a steep curb falling onto her left hip. She was unable to get up on her own. She presented to the emergency department with acute left hip pain. She denies striking her head. Review of Systems Constitutional: reports: Reviewed and negative Ears: reports: Reviewed and negative Throat: reports: Reviewed and negative Cardiac: reports: Reviewed and negative Respiratory: reports: Dyspnea. denies: Cough GI: reports: Reviewed and negative : reports: Reviewed and negative Musculoskeletal: reports: Joint pain (left hip) Neurologic: reports: Reviewed and negative PD PAST MEDICAL HISTORY - Past Medical History Cardiovascular: Hypertension, High cholesterol, Atrial fibrillation, Other Respiratory: None Neuro: CVA Endocrine/Autoimmune: HyPOthyroidism GI: None : Incontinence Psych: None Musculoskeletal: Osteoarthritis Derm: Herpes zoster - Past Surgical History Past Surgical History: Yes General: Cholecystectomy Ortho: Hip replacement HEENT: Tonsil/Adenoidectomy - Present Medications Home Medications: Ambulatory Orders Medication Instructions Recorded Confirmed Budesonide [Budesonide EC] 3 mg PO DAILY 10/12/14 02/10/20 Levothyroxine Sodium [Synthroid] 125 mcg PO DAILY 10/12/14 02/10/20 Omeprazole [PriLOSEC] 20 mg PO DAILY 10/12/14 02/10/20 Simvastatin 5 mg PO QPM 10/12/14 02/10/20 Warfarin Sodium [Coumadin] 6 mg PO TUFR@2100 10/12/14 02/10/20 Garlic 1 tab PO DAILY 04/27/19 02/10/20 Lactobacillus Acidophilus 1 tab PO DAILY 04/27/19 02/10/20 [Probiotic Acidophilus] [place]-3/Dha/Epa/Fish Oil [Fish Oil 3,000 mg PO DAILY 04/27/19 02/10/20 1,000 mg Softgel] ALPRAZolam [Alprazolam] 0.2 mg PO TID PRN 04/28/19 02/10/20 Losartan Potassium 25 mg PO DAILY 04/28/19 02/10/20 Metoprolol Succinate [Toprol Xl] 25 mg PO DAILY 04/28/19 02/10/20 Warfarin Sodium 3 mg PO SUMOWETHSA@2100 04/28/19 02/10/20 predniSONE [Deltasone] 2 mg PO DAILYWM 04/28/19 04/28/19 ursodioL [Jordon 250] 250 mg PO TID 04/28/19 04/28/19 Prednisone 1 mg PO DAILY 01/07/20 02/10/20 - Allergies Allergies/Adverse Reactions: Allergies Allergy/AdvReac Type Severity Reaction Status Date / Time sertraline Allergy Unknown Verified 04/28/19 15:58 Sulfa (Sulfonamide Allergy Edema Verified 04/27/19 06:43 Antibiotics) - Social History Does the pt smoke?: No Smoking Status: Never smoker Does the pt drink ETOH?: No Does the pt have substance abuse?: No - Immunizations Immunizations are current?: Yes - POLST Patient has POLST: No POLST Status: Full Code PD ED PE EXPANDED - General General: Alert, Anxious, In Pain - Cardiac Cardiac: Regular Rate, Murmur Present, Radial strong equal, Femoral strong equal, Pedal strong equal, Cap refill < 2 sec - Respiratory Respiratory: Clear to ausultation lukasz. No: Distress, Labored - Abdomen Abdomen: Normal Bowel sounds. No: Tender to palpation - Extremities Extremities: Left hip (Tenderness with palpation lateral hip. no leg shortening. distal 2+ pulse. ) - Neuro Neuro: Alert and Oriented X 3, CNII-XII intact - GCS Eye Opening: Spontaneous Motor: Obeys Commands Verbal: Oriented Total: 15 Results - Vitals Vitals: Vital Signs - 24 hr 02/10/20 02/10/20 16:57 17:33 Temperature 36 C L Heart Rate 69 61 Respiratory 18 20 Rate Blood Pressure 146/66 H 156/72 H O2 Saturation 99 93 Oxygen O2 Source Room air - EKG (time done) 1747 Rate: Rate (enter#) (69) Rhythm: NSR [place]: Normal Intervals: Normal NE QRS: Normal Ischemia: Normal ST segments Other comments: Other comments (PVC noted) Computer interpretation: Agree with computer - Labs Labs: Laboratory Tests 02/10/20 02/10/20 02/10/20 17:30 17:30 17:30 WBC 13.6 H RBC 4.36 Hgb 13.3 Hct 39.9 MCV 91.5 MCH 30.5 MCHC 33.3 RDW 14.0 Plt Count 474 H MPV 10.4 Neut # (Auto) 9.4 H Lymph # (Auto) 2.8 [place] # (Auto) 1.0 Eos # (Auto) 0.1 Baso # (Auto) 0.1 Absolute Nucleated RBC 0.00 Nucleated RBC % 0.0 PT INR APTT Sodium 134 L Potassium 4.7 Chloride 96 L Carbon Dioxide 25 Anion Gap 13.0 BUN 17 Creatinine 0.7 Estimated GFR (MDRD) 80 L Glucose 124 H Calcium 9.1 Total Bilirubin 0.5 AST 49 H ALT 53 Alkaline Phosphatase 149 H Troponin I High Sens 6.9 Total Protein 6.8 Albumin 3.6 Globulin 3.2 Albumin/Globulin Ratio 1.1 Lipase 53 H 02/10/20 17:30 WBC RBC Hgb Hct MCV MCH MCHC RDW Plt Count MPV Neut # (Auto) Lymph # (Auto) [place] # (Auto) Eos # (Auto) Baso # (Auto) Absolute Nucleated RBC Nucleated RBC % PT 32.5 H INR 3.1 H APTT 29.6 Sodium Potassium Chloride Carbon Dioxide Anion Gap BUN Creatinine Estimated GFR (MDRD) Glucose Calcium Total Bilirubin AST ALT Alkaline Phosphatase Troponin I High Sens Total Protein Albumin Globulin Albumin/Globulin Ratio Lipase - Rads (name of study) left hip Radiology: Final report received (Acute displaced angulated left femoral neck fracture) CT head Radiology: Final report received (No acute intracranial process) PD MEDICAL DECISION MAKING - ED course Complexity details: reviewed results, considered differential, d/w patient, d/w wireless sales consultant (Dr. Lopes) ED course: 84 year old female presents to the ED with acute left hip pain after a fall this afternoon in which she stepped off a curb, falling on the left hip. She does have a hx of atrial fib and is anticoagulated. Xray of left hip showed a displaced, angulated left femoral neck fx. I spoke with Dr. Lopes orthopedist irrigation engineer who requested medicine admit and he will consult. Pt's head Ct showed no acute process. Pt did not strike her head however. Her INR is 3.1 1834: I have spoken to Dr. Jj who has agreed to admit pt to the hospital for further evaluation and management of her hip fx. Departure - Departure Disposition: 66 [facility] DC/Xfer Clinical Impression: Anticoagulated on Coumadin Closed left hip fracture Qualifiers: Encounter type: initial encounter Qualified Code(s): S72.002A - Fracture of unspecified part of neck of left femur, initial encounter for closed fracture Fall Qualifiers: Encounter type: initial encounter Qualified Code(s): W19.XXXA - Unspecified fall, initial encounter
[2020-02-10] MEDS ORDERED: HYDROmorphone 1 MG/ML CARPUJECT IVP STA (17:32)
[2020-02-10 17:39] LABS: BASOPHILS # (AUTO) 0.1 10^3/uL (0.0-0.1); BASOPHILS % (AUTO) 0.7 %; EOSINOPHILS # (AUTO) 0.1 10^3/uL (0.0-0.7); HGB - HEMOGLOBIN 13.3 g/dL (12.0-16.0); LYMPHOCYTES # (AUTO) 2.8 10^3/uL (1.5-3.5); LYMPHOCYTES % (AUTO) 20.8 %; MEAN CORPUSCULAR HEMOGLOBIN 30.5 pg (27.0-31.0); MEAN CORPUSCULAR HGB CONC 33.3 g/dL (32.0-36.0); MEAN CORPUSCULAR VOLUME 91.5 fL (81.0-99.0); MEAN PLATELET VOLUME 10.4 fL (7.9-10.8); MONOCYTES % (AUTO) 7.6 %; NEUTROPHILS # (AUTO) 9.4 10^3/uL (1.5-6.6); NEUTROPHILS % (AUTO) 68.9 %; PLT - PLATELET COUNT 474 10^3/uL (130-450); RED BLOOD COUNT 4.36 10^6/uL (4.20-5.40); WHITE BLOOD COUNT 13.6 x10^3/uL (4.8-10.8)
--- NOTE | 2020-02-10 17:40 | XRAY Report ---
PROCEDURE: Hip w/Pelvis 2-3V LT INDICATIONS: GLF, pain to the left hip TECHNIQUE: AP pelvis with lateral view(s) of the bilateral hip(s). COMPARISON: None. FINDINGS: Bones: Left femoral neck fracture with displacement and varus angulation. No dislocation. Right hip a rthroplasty, not completely imaged. No evidence of complications of right hip arthroplasty. Pelvic ri ng appears intact. No suspicious bony lesions. Soft tissues: The visualized bowel gas pattern is normal. No suspicious soft tissue calcifications. IMPRESSION: 1. Acute displaced angulated left femoral neck fracture. Reviewed by: Jose Francisco Bob MD on 02/10/2020 5:38 PM PDT Approved by: Jose Francisco Bob MD on 02/10/2020 5:38 PM PDT Station ID: [id number]
[2020-02-10 17:49] LABS: INR 3.1 (0.8-1.2); PT - PROTHROMBIN TIME 32.5 secs (9.9-12.6)
[2020-02-10 17:50] LABS: ALBUMIN 3.6 g/dL (3.2-5.5); ALBUMIN/GLOBULIN RATIO 1.1 (1.0-2.2); BILIRUBIN,TOTAL 0.5 mg/dL (0.2-1.0); CALCIUM 9.1 mg/dL (8.5-10.3); CREATININE 0.7 mg/dL (0.4-1.0); TOTAL PROTEIN 6.8 g/dL (6.7-8.2)
[2020-02-10 17:56] LABS: PARTIAL THROMBOPLASTIN TIME 29.6 secs (24.9-33.3)
--- NOTE | 2020-02-10 18:12 | CT Report ---
PROCEDURE: HEAD WO INDICATIONS: anticoagulated on coumadin ; fall TECHNIQUE: Noncontrast 4.5 mm thick angled axial sections acquired from the foramen magnum to the vertex. For r adiation dose reduction, the following was used: automated exposure control, adjustment of mA and/or kV according to patient size. COMPARISON: 06/24/2016 FINDINGS: Image quality: Excellent. CSF spaces: Basal cisterns are patent. No extra-axial fluid collections. Ventricles are normal in size and shape. Brain: No midline shift. No intracranial masses or hemorrhage. Lainez-white matter interface is norm al. Symmetric, relatively stable calcification can be seen along the falx, along the tentorium, as we ll as symmetric calcification within the basal ganglia. Skull and face: Calvarium and visualized facial bones are intact, without suspicious lesions. Sinuses: Visualized sinuses and mastoids are clear. IMPRESSION: No intracranial hemorrhage is seen. Symmetric, relatively stable calcification can be seen along the falx, along the tentorium, as well a s within the basal ganglia. Age-appropriate brain parenchymal volume loss and chronic small vessel ischemic change can be seen. Reviewed by: Eleazar Block MD on 02/10/2020 5:11 PM JESS Approved by: Eleazar Block MD on 02/10/2020 5:11 PM AKELENA Station ID: [id number]
[2020-02-10] MEDS ORDERED: ONDANSETRON 4 MG/2 ML VIAL IVP STA (18:29)
--- NOTE | 2020-02-10 19:12 | HISTORY & PHYSICAL EXAMINATION ---
Chief Complaint - Chief Complaint Chief Complaint: Left Hip pain s/p mechanical fall History of Present Illness - Admitted From [facility] - History Obtained From Records Reviewed: Yes History obtained from: Patient - History of Present Illness HPI Comment/Other: Patient is an 84-year-old female with history of atrial fibrillation on Coumadin who presented to the ED after a mechanical fall. She had walked out of the [employer] where she had her hair done and her had just pulled the car up to the curb when she tried to step off the curb and lost her balance. She did not hit her head or pass out. Initially her called EMS but after a while of no response they asked to passerby's for assistance. They lifted her and put her in the car. Her intention at the time was just to go home. However she noticed she could not move her left leg so asked her to bring her to the ED. Work-up in the ED included x-ray of the left leg which showed a displaced angulated femoral neck fracture. Consequently she was presented for admission for further treatment. She was also found to have an INR of 3.1 in the ED. At bedside she is awake alert and oriented x4. She rates her pain 6 out of 10. She denies chest pain, dyspnea, fever or chills. She reports feeling nauseous after receiving Dilaudid for pain. The rest of her history is unremarkable. History - Past Medical History Cardiovascular: reports: Hypertension, High cholesterol, Atrial fibrillation, Other Respiratory: reports: None Neuro: reports: CVA Endocrine/Autoimmune: reports: HyPOthyroidism GI: reports: None : reports: Incontinence Psych: reports: None Musculoskeletal: reports: Osteoarthritis Derm: reports: Herpes zoster MRSA Hx?: No - Past Surgical History General: reports: Cholecystectomy Ortho: reports: Hip replacement HEENT: reports: Tonsil/Adenoidectomy - Family & Social History Family History: Mother: , CVA/TIA, Father: , Cancer, Sister: , CAD, Cancer, Brother: , Cancer Social History Notes: The patient was an senior accountant cpa, now retired. The patient has 3 grown children. She admits to using tobacco from age [age]. No alochol or ilicit drug use. She wishes to be a DNI, and wants all cardiac resuscitation. - POLST Patient has POLST: No POLST Status: Full Code Meds/Allgy - Home Medications Home Medications: Ambulatory Orders Medication Instructions Recorded Confirmed Budesonide [Budesonide EC] 3 mg PO DAILY 10/12/14 02/10/20 Levothyroxine Sodium [Synthroid] 125 mcg PO DAILY 10/12/14 02/10/20 Omeprazole [PriLOSEC] 20 mg PO DAILY 10/12/14 02/10/20 Simvastatin 5 mg PO QPM 10/12/14 02/10/20 Warfarin Sodium [Coumadin] 6 mg PO TUFR@209910/12/14 02/10/20 Garlic 1 tab PO DAILY 04/27/19 02/10/20 Lactobacillus Acidophilus 1 tab PO DAILY 04/27/19 02/10/20 [Probiotic Acidophilus] [place]-3/Dha/Epa/Fish Oil [Fish Oil 3,000 mg PO DAILY 04/27/19 02/10/20 1,000 mg Softgel] ALPRAZolam [Alprazolam] 0.2 mg PO TID PRN 04/28/19 02/10/20 Losartan Potassium 25 mg PO DAILY 04/28/19 02/10/20 Metoprolol Succinate [Toprol Xl] 25 mg PO DAILY 04/28/19 02/10/20 Warfarin Sodium 3 mg PO SUMOWETHSA@209904/28/19 02/10/20 predniSONE [Deltasone] 2 mg PO DAILYWM 04/28/19 04/28/19 ursodioL [Jordon 250] 250 mg PO TID 04/28/19 04/28/19 Prednisone 1 mg PO DAILY 01/07/20 02/10/20 - Allergies Allergies/Adverse Reactions: Allergies Allergy/AdvReac Type Severity Reaction Status Date / Time sertraline Allergy Unknown Verified 04/28/19 15:58 Sulfa (Sulfonamide Allergy Edema Verified 04/27/19 06:43 Antibiotics) Review of Systems - Constitutional Constitutional: denies: Fatigue, Fever, Chills - Eyes Eyes: denies: Pain - Ears, Nose & Throat Ears, Nose & Throat: denies: Ear pain, Hoarseness - Cardiovascular Cariovascular: denies: Irregular heart rate, Palpitations, Chest pain, Edema, Lightheadedness, Syncope, Exertional dyspnea - Respiratory Respiratory: denies: Cough, Sputum production, Wheezing, SOB at rest, SOB with exertion - Gastrointestinal Gastrointestinal: reports: Abdominal pain, Nausea. denies: Abdominal distention, Constipation, Diarrhea, Vomiting, Reflux/heartburn - Genitourinary Genitourinary: denies: Dysuria, Frequency, Urgency, Hematuria - Musculoskeletal Musculoskeletal: reports: Joint pain (left hip). denies: Muscle pain, Back pain, Muscle aches - Integumentary Integumentary: denies: Rash, Pruritis - Neurological Neurological: denies: General weakness, Focal weakness, Headache, Dizziness - Psychiatric Psychiatric: denies: Depression, Anxiety - Endocrine Endocrine: denies: Polyuria, Polydypsia - Hematologic/Lymphatic Hematologic/Lymphatic: reports: Bruising (on coumadin). denies: Anemia, Petechiae Prior Level of Functionality: Patient is independent of activities of daily living Exam - Vital Signs Vital Signs: Vital Signs x48h Temp Pulse Resp BP Pulse Ox 02/10/20 18:39 74 20 160/56 H 91 L 02/10/20 17:33 61 20 156/72 H 93 02/10/20 16:57 36 C L 69 18 146/66 H 99 - Physical Exam General Appearance: positive: Alert, Moderate distress Eyes Bilateral: positive: PERRL, EOMI ENT: positive: No signs of dehydration Neck: positive: No JVD, Trachea midline Respiratory: positive: Chest non-tender, No respiratory distress, Breath sounds nml. negative: Wheezes, Rales, Rhonchi Cardiovascular: positive: Regular rate & rhythm Abdomen: positive: Non-tender, Nml bowel sounds, No distention. negative: Guarding, Rebound Back: positive: Nml inspection Skin: positive: Color nml, No rash, Warm, Dry Extremities: positive: No pedal edema Neurologic/Psychiatric: positive: Oriented x3, Mood/affect nml Conclusion/Plan - Problem List (1) Closed left hip fracture Conclusion/Plan: Patient will be n.p.o. after midnight. Receiving IV hydration with normal saline at [address] Finney with orthopedic surgery was notified and will see the patient. Pain management with Tylenol and morphine as needed. Patient was given vitamin K 5 mg p.o. x1. If INR still greater than 1.5 tomorrow, will administer FFP. EKG done in the ED showed sinus rhythm with a heart rate of 69. Patient is medically optimized for surgery pending correction of INR to 1.5 hours Qualifiers: Encounter type: initial encounter Qualified Code(s): S72.002A - Fracture of unspecified part of neck of left femur, initial encounter for closed fracture (2) Pre-op evaluation Conclusion/Plan: EKG showed normal sinus rhythm. According to the according to the NSQIP Risk calculator, patient's risk of any serious complication is 6.2. The average risk Of any serious complicationis 11.5. Patient's risk of any complication is 6.5. Average risk of any complication is 12.2. Patient's average risk of cardiac complication is 0.2. Average risk of cardiac complication is 1.8 Because patient's overall risk significant less than the average risk. Patient's estimated length of stay is 2.5 days. Patient is medically optimized for surgery pending correction of INR to less than or equal to 1.5. (3) History of atrial fibrillation Conclusion/Plan: INR upon presentation was 3.1. We will hold Coumadin and give patient a dose of vitamin K 5 mg p.o. x1. Continue patient's metoprolol XL 25 mg p.o. daily (4) Hypertension Conclusion/Plan: Hold patient's losartan and resume after surgery. Continue metoprolol 25 mg p.o. daily Qualifiers: Hypertension type: essential hypertension Qualified Code(s): I10 - Essential (primary) hypertension (5) Hypothyroidism Conclusion/Plan: On Synthroid 125 mcg p.o. daily. Will continue. (6) Hyperlipidemia Conclusion/Plan: On simvastatin 5 mg p.o. daily. We will order equivalent on formulary once verified. (7) Anxiety Conclusion/Plan: On alprazolam 0.25 mg p.o. 3 times daily as needed - Lab Results Fish Bones: 02/11/20 05:05 02/11/20 05:45 Core Measures - Anticipated LOS I expect patient to be DC'd or transferred within 96 hours.: Yes - DVT/VTE - Prophylaxis VTE/DVT Device ordered at admit?: Yes
[2020-02-10] MEDS ORDERED: HYDROmorphone 0.5 MG/0.5 ML SYRINGE IVP PRN (19:13)
[2020-02-10] MEDS ORDERED: SODIUM CHLORIDE FLUSH 0.9% 10 ML SYRINGE IVP PRN (19:13)
[2020-02-10] MEDS ORDERED: CHERRY SYRUP 10 ML UDC PO ONE (19:33)
[2020-02-10] MEDS ORDERED: PHYTONADIONE 10 MG/ML AMP PO ONE (19:33)
[2020-02-10] MEDS: SODIUM CHLORIDE 0.9% 1,000 ML IV SCH (19:37)
--- NOTE | 2020-02-10 20:03 | HISTORY & PHYSICAL EXAMINATION ---
HPI - History Obtained From History obtained from: Patient Exam limitations: No limitations, Clinical condition - History of Present Illness HPI Comment/Other: This is an 84-year-old woman who lives in [place]. She is coming off of a curb and her left leg gave way and fell onto her left side. She had immediate pain and inability to bear weight on left leg. She was brought to the emergency room for evaluation. She denies chest pain, shortness of breath, dizziness, syncope or loss of consciousness associated with the fall. She denies any previ ous problems with her left hip. She has had a previous fracture of the right hip which was treated with a hemiarthroplasty of the right hip 7 years ago. She is ambulatory, independent in most activities of daily living and takes care of her . She is on Coumadin anticoagulation because of a history of atrial fibrillation. PMH/PSH - Past Medical History Cardiovascular: positive: Hypertension, High cholesterol, Atrial fibrillation, Other Respiratory: positive: None Neuro: positive: CVA Endocrine/Autoimmune: positive: HyPOthyroidism GI: positive: None : positive: Incontinence Psych: positive: None Musculoskeletal: positive: Osteoarthritis Derm: positive: Herpes zoster MRSA Hx?: No - Past Surgical History General: positive: Cholecystectomy Ortho: positive: Hip replacement HEENT: positive: Tonsil/Adenoidectomy Social & Family Hx - Social History Does the pt smoke?: No Smoking Status: Never smoker Does the pt drink ETOH?: No Does the pt have substance abuse?: No - POLST Patient has POLST: No POLST Status: Full Code Meds/Allgy - Home Medications Home Medications: Ambulatory Orders Medication Instructions Recorded Confirmed Budesonide [Budesonide EC] 3 mg PO DAILY 10/12/14 02/10/20 Levothyroxine Sodium [Synthroid] 125 mcg PO DAILY 10/12/14 02/10/20 Omeprazole [PriLOSEC] 20 mg PO DAILY 10/12/14 02/10/20 Simvastatin 5 mg PO QPM 10/12/14 02/10/20 Warfarin Sodium [Coumadin] 6 mg PO TUFR@2100 10/12/14 02/10/20 Garlic 1 tab PO DAILY 04/27/19 02/10/20 Lactobacillus Acidophilus 1 tab PO DAILY 04/27/19 02/10/20 [Probiotic Acidophilus] [place]-3/Dha/Epa/Fish Oil [Fish Oil 3,000 mg PO DAILY 04/27/19 02/10/20 1,000 mg Softgel] ALPRAZolam [Alprazolam] 0.2 mg PO TID PRN 04/28/19 02/10/20 Losartan Potassium 25 mg PO DAILY 04/28/19 02/10/20 Metoprolol Succinate [Toprol Xl] 25 mg PO DAILY 04/28/19 02/10/20 Warfarin Sodium 3 mg PO SUMOWETHSA@2100 04/28/19 02/10/20 predniSONE [Deltasone] 2 mg PO DAILYWM 04/28/19 04/28/19 ursodioL [Jordon 250] 250 mg PO TID 04/28/19 04/28/19 Prednisone 1 mg PO DAILY 01/07/20 02/10/20 - Allergies Allergies/Adverse Reactions: Allergies Allergy/AdvReac Type Severity Reaction Status Date / Time sertraline Allergy Unknown Verified 04/28/19 15:58 Sulfa (Sulfonamide Allergy Edema Verified 04/27/19 06:43 Antibiotics) Exam - Vital Signs Vital Signs: Vital Signs x48h Temp Pulse Pulse Resp BP BP Pulse Ox 02/10/20 19:21 36.5 C 86 15 138/55 H 98 02/10/20 18:39 74 20 160/56 H 91 L 02/10/20 17:33 61 20 156/72 H 93 02/10/20 16:57 36 C L 69 18 146/66 H 99 - Physical Exam General Appearance: positive: Mild distress Eyes Bilateral: positive: Normal inspection ENT: positive: ENT inspection nml Neck: positive: Nml inspection Respiratory: positive: Chest non-tender, No respiratory distress Peripheral Pulses: positive: 1+ Abdomen: positive: Non-tender Skin: positive: Color nml, Warm, Dry Extremities: negative: Other (Left leg is shortened and externally rotated, marked pain with any attempted movement left hip. There is no other extremity abnormalities. She has a well-healed surgical scar from previous hemiarthr oplasty right hip) Neurologic/Psychiatric: positive: Oriented x3, Motor nml, Sensation nml Results - Lab Results Fish Bones: 02/10/20 17:30 02/10/20 17:30 Other Lab Results: Lab Results x24hrs 10/21/20 10/21/20 10/21/20 Range/Units 17:30 17:30 17:30 WBC (4.8-10.8) x10^3/uL RBC (4.20-5.40) 10^6/uL Hgb (12.0-16.0) g/dL Hct (37.0-47.0) % MCV (81.0-99.0) fL MCH (27.0-31.0) pg MCHC (32.0-36.0) g/dL RDW (12.0-15.0) % Plt Count (130-450) 10^3/uL MPV (7.9-10.8) fL Neut # (Auto) (1.5-6.6) 10^3/uL Lymph # (Auto) (1.5-3.5) 10^3/uL Sharp # (Auto) (0.0-1.0) 10^3/uL Eos # (Auto) (0.0-0.7) 10^3/uL Baso # (Auto) (0.0-0.1) 10^3/uL Absolute Nucleated RBC x10^3/uL Nucleated RBC % /100WBC PT 32.5 H (9.9-12.6) secs INR 3.1 H (0.8-1.2) APTT 29.6 (24.9-33.3) secs Sodium 134 L (135-145) mmol/L Potassium 4.7 (3.5-5.0) mmol/L Chloride 96 L (101-111) mmol/L Carbon Dioxide 25 (21-32) mmol/L Anion Gap 13.0 (6-13) BUN 17 (6-20) mg/dL Creatinine 0.7 (0.4-1.0) mg/dL Estimated GFR (MDRD) 80 L (>89) Glucose 124 H (70-100) mg/dL Calcium 9.1 (8.5-10.3) mg/dL Total Bilirubin 0.5 (0.2-1.0) mg/dL AST 49 H (10-42) IU/L ALT 53 (10-60) IU/L Alkaline Phosphatase 149 H (42-121) IU/L Troponin I High Sens 6.9 (2.3-14.8) ng/L Total Protein 6.8 (6.7-8.2) g/dL Albumin 3.6 (3.2-5.5) g/dL Globulin 3.2 (2.1-4.2) g/dL Albumin/Globulin Ratio 1.1 (1.0-2.2) Lipase 53 H (22-51) U/L 10//20 Range/Units 17:30 WBC 13.6 H (4.8-10.8) x10^3/uL RBC 4.36 (4.20-5.40) 10^6/uL Hgb 13.3 (12.0-16.0) g/dL Hct 39.9 (37.0-47.0) % MCV 91.5 (81.0-99.0) fL MCH 30.5 (27.0-31.0) pg MCHC 33.3 (32.0-36.0) g/dL RDW 14.0 (12.0-15.0) % Plt Count 474 H (130-450) 10^3/uL MPV 10.4 (7.9-10.8) fL Neut # (Auto) 9.4 H (1.5-6.6) 10^3/uL Lymph # (Auto) 2.8 (1.5-3.5) 10^3/uL Sharp # (Auto) 1.0 (0.0-1.0) 10^3/uL Eos # (Auto) 0.1 (0.0-0.7) 10^3/uL Baso # (Auto) 0.1 (0.0-0.1) 10^3/uL Absolute Nucleated RBC 0.00 x10^3/uL Nucleated RBC % 0.0 /100WBC PT (9.9-12.6) secs INR (0.8-1.2) APTT (24.9-33.3) secs Sodium (135-145) mmol/L Potassium (3.5-5.0) mmol/L Chloride (101-111) mmol/L Carbon Dioxide (21-32) mmol/L Anion Gap (6-13) BUN (6-20) mg/dL Creatinine (0.4-1.0) mg/dL Estimated GFR (MDRD) (>89) Glucose (70-100) mg/dL Calcium (8.5-10.3) mg/dL Total Bilirubin (0.2-1.0) mg/dL AST (10-42) IU/L ALT (10-60) IU/L Alkaline Phosphatase (42-121) IU/L Troponin I High Sens (2.3-14.8) ng/L Total Protein (6.7-8.2) g/dL Albumin (3.2-5.5) g/dL Globulin (2.1-4.2) g/dL Albumin/Globulin Ratio (1.0-2.2) Lipase (22-51) U/L - Diagnostic Imaging Results Diagnostic Imaging Results: negative: Read independently (Displaced femoral neck fracture left hip) Impression/Plan - Problem List Problem List: 1. Displaced femoral neck fracture left hip I discussed the risk, goals and likelihood of achieving goals, alternatives to surgery, disability and with the patient. She is in agreement to surgery and has had a similar procedure done to the opposite right hip 7 years ago with favorable outcome. 2. Coumadin anticoagulation This needs to be reversed. I discussed with our hospitalist. The plan would be a hemiarthroplasty of the left hip done tomorrow or at the latest Saturday.
[2020-02-10] MEDS: MORPHINE 2 MG/ML CARPUJECT IVP PRN ×2 (20:12→23:46)
[2020-02-10] MEDS: SODIUM CHLORIDE FLUSH 0.9% 10 ML SYRINGE IVP SCH (23:47)
[2020-02-11] MEDS ORDERED: traZODone 50 MG TABLET PO PRN (00:28)
[2020-02-11] MEDS: MORPHINE 2 MG/ML CARPUJECT IVP PRN ×3 (03:58→11:26)
[2020-02-11] MEDS: SODIUM CHLORIDE 0.9% 1,000 ML IV SCH ×2 (04:54→19:48)
[2020-02-11 05:38] LABS: BASOPHILS # (AUTO) 0.1 10^3/uL (0.0-0.1); BASOPHILS % (AUTO) 0.6 %; EOSINOPHILS # (AUTO) 0.2 10^3/uL (0.0-0.7); EOSINOPHILS % (AUTO) 0.9 %; HGB - HEMOGLOBIN 11.8 g/dL (12.0-16.0); LYMPHOCYTES # (AUTO) 1.6 10^3/uL (1.5-3.5); LYMPHOCYTES % (AUTO) 7.6 %; MEAN CORPUSCULAR HEMOGLOBIN 29.7 pg (27.0-31.0); MEAN CORPUSCULAR HGB CONC 30.6 g/dL (32.0-36.0); MEAN CORPUSCULAR VOLUME 97.2 fL (81.0-99.0); MEAN PLATELET VOLUME 10.9 fL (7.9-10.8); MONOCYTES # (AUTO) 1.5 10^3/uL (0.0-1.0); MONOCYTES % (AUTO) 7.1 %; NEUTROPHILS # (AUTO) 17.9 10^3/uL (1.5-6.6); PLT - PLATELET COUNT 386 10^3/uL (130-450); RED BLOOD COUNT 3.97 10^6/uL (4.20-5.40); RED CELL DISTRIBUTION WIDTH 14.3 % (12.0-15.0); WHITE BLOOD COUNT 21.6 x10^3/uL (4.8-10.8)
[2020-02-11 05:56] LABS: INR 2.9 (0.8-1.2); PT - PROTHROMBIN TIME 29.9 secs (9.9-12.6)
[2020-02-11 05:58] LABS: CALCIUM 8.4 mg/dL (8.5-10.3); CREATININE 0.6 mg/dL (0.4-1.0)
[2020-02-11 06:04] LABS: DIFFERENTIAL COMMENT MANUAL=AUTO DIFF; PLATELET ESTIMATE, MANUAL NORMAL (130-450,000) (NORMAL); RBC MORPHOLOGY (MULTIPLE) NORMAL APPEARANCE (NORMAL)
--- NOTE | 2020-02-11 07:20 | XRAY Report ---
PROCEDURE: Chest 1 View X-Ray INDICATIONS: Pre-op eval TECHNIQUE: One view of the chest was acquired. COMPARISON: 04/27/2019 FINDINGS: Surgical changes and devices: None. Lungs and pleura: No pleural effusions or pneumothorax. Stable scarring of left lung base. Lungs ar e clear. Mediastinum: Mediastinal contours appear normal. Heart size is normal. Bones and chest wall: No suspicious bony lesions. Overlying soft tissues appear unremarkable. IMPRESSION: Stable examination of the chest without acute cardiopulmonary abnormalities. No significant discrepancy with initial interpretation by overnight radiologist. Reviewed by: Brad Hendricks MD on 02/11/2020 7:18 AM PDT Approved by: Brad Hendricks MD on 02/11/2020 7:18 AM PDT Station ID: [id number]
[2020-02-11] MEDS ORDERED: oxyCODONE 5 MG TABLET PO PRN (07:59)
[2020-02-11] MEDS ORDERED: LEVOTHYROXINE 125 MCG TABLET PO SCH (09:00)
[2020-02-11] MEDS: METOPROLOL SUCCINATE 25 MG TABLET PO SCH (09:21)
[2020-02-11] MEDS: ALPRAZolam 0.25 MG TABLET PO PRN (09:21)
[2020-02-11] MEDS: polyethylene glycoL 3350 17 GM PACKET PO SCH (09:24)
[2020-02-11] MEDS: SODIUM CHLORIDE FLUSH 0.9% 10 ML SYRINGE IVP SCH ×2 (09:24→21:55)
[2020-02-11 10:11] LABS: BILIRUBIN,URINE NEGATIVE (NEGATIVE); GLUCOSE, URINE (UA) NEGATIVE (NEGATIVE); KETONES,URINE (UA) NEGATIVE (NEGATIVE); LEUKOCYTE ESTERASE, URINE NEGATIVE (NEGATIVE); NITRITE,URINE NEGATIVE (NEGATIVE); OCCULT BLOOD,URINE NEGATIVE (NEGATIVE); PH,URINE 6.5 PH (5.0-7.5); PROTEIN,URINE 100 mg/dL (NEGATIVE); UROBILINOGEN,URINE 0.2 (NORMAL) E.U./dL (NORMAL)
[2020-02-11 10:20] LABS: CLARITY,URINE CLEAR (CLEAR)
[2020-02-11 10:37] LABS: BACTERIA,URINE Rare /HPF (None Seen); RBC,URINE 0-5 /HPF (0-5); SQUAMOUS EPITHELIAL CELL,UR RARE Squamous (<= Few)
[2020-02-11] MEDS: ONDANSETRON 4 MG/2 ML VIAL IVP PRN (11:24)
[2020-02-11] MEDS ORDERED: BUPIVACAINE 0.25%-EPI 1:200000 PF 30 ML VIAL ONE (11:28)
[2020-02-11] MEDS ORDERED: PROCHLORPERAZINE 10 MG/2 ML VIAL IVP PRN ×2 (13:35→18:10)
--- NOTE | 2020-02-11 13:35 | PROVIDER PROGRESS NOTE ---
Assessment/Plan - Problem List (1) Closed left hip fracture Qualifiers: Encounter type: initial encounter Qualified Code(s): S72.002A - Fracture of unspecified part of neck of left femur, initial encounter for closed fracture Assessment/Plan: 02/10 Patient reported she feel good but she felt nausea when she was give pain medication. Order another antiemesis medication PRN. Patient's INR is 1.7 after she had a 1 units FFP. We will follow-up with orthopedic surgeon for pt's care. we also monitor H&H (2) Pre-op evaluation Conclusion/Plan: EKG showed sinus rhythm. Dr. Reis did assessment as: Patient is medically optimized for surgery (3) History of atrial fibrillation Conclusion/Plan: 02/10 INR is 1.7 after Patient had a 1 units of FFP Continue patient's metoprolol XL 25 mg p.o. daily (4) Hypertension 02/10 stable Continue metoprolol 25 mg p.o. daily (5) Hypothyroidism Conclusion/Plan: 02/10 TS H is low, reduce Synthroid to 112 mcg p.o. daily. (6) Hyperlipidemia stable (7) Anxiety Conclusion/Plan: continue alprazolam 0.25 mg p.o. 3 times daily as needed (8) hx of autoimmune cholangitis pt take steroid at home, will resume. that could be explained for her elevated WBC - Current Meds Current Meds: Current Medications Generic Name Dose Route Start Last Admin Trade Name Freq PRN Reason Stop Dose Admin Alprazolam 0.25 mg 02/11/20 08:46 02/11/20 09:21 Xanax PO 0.25 mg TID PRN Administration anxiety/insomnia Sodium Chloride 1,000 mls @ 100 mls/hr 02/10/20 20:00 02/11/20 04:54 Normal Saline 0.9% IV 100 mls/hr .Q10H [facility]ILMAR Administration Metoprolol Succinate 25 mg 02/11/20 09:00 02/11/20 09:21 Toprol Xl PO 25 mg DAILY WILMAR Administration Morphine Sulfate 2 mg 02/10/20 19:31 02/11/20 11:26 Morphine (Carpuject) IVP 2 mg Q2HR PRN Administration PAIN Ondansetron HCl 4 mg 02/10/20 19:13 02/11/20 11:24 Zofran Inj IVP 4 mg Q6HR PRN Administration Nausea / Vomiting Polyethylene Glycol 17 gm 02/11/20 09:00 02/11/20 09:24 Miralax PO Not Given DAILY [facility] Sodium Chloride 10 ml 02/10/20 19:13 02/10/20 19:38 Normal Saline Flush 0.9% IVP 10 ml PRN PRN Administration NEEDED PER PROVIDER ORDERS Sodium Chloride 10 ml 02/11/20 01:00 02/11/20 09:24 Normal Saline Flush 0.9% IVP 10 ml 0100,0900,1700 [facility] Administration Trazodone HCl 50 mg 02/11/20 00:28 02/11/20 01:48 Desyrel PO 50 mg QPM PRN Administration Insomnia - Lab Result Fish Bone Diagrams: 02/12/20 05:20 02/12/20 05:20 - Additional Planning My Orders: My Active Orders 02/11/20 07:59 oxyCODONE [Roxicodone] 5 mg PO Q4HR PRN 02/11/20 08:46 ALPRAZolam [Xanax] 0.25 mg PO TID PRN 02/11/20 09:00 Metoprolol Succinate [Toprol Xl] 25 mg PO DAILY 02/12/20 COVID-19 REFERENCE TEST Routine 02/12/20 05:00 FREE T4 (FREE THYROXINE) [IAI] DAILYLAB 02/12/20 07:00 Levothyroxine [Synthroid] 112 mcg PO QDAC Subjective - Subjective Patient Reports: Feeling Better Objective Vital Signs: Vital Signs - 24 hr 02/10/20 02/10/20 02/10/20 16:57 17:33 18:39 Temperature 36 C L Heart Rate 69 61 74 Heart Rate [ Brachial] Respiratory 18 20 20 Rate Blood Pressure 146/66 H 156/72 H 160/56 H Blood Pressure [Left Brachial artery] O2 Saturation 99 93 91 L 02/10/20 02/10/20 02/11/20 19:21 21:08 00:00 Temperature 36.5 C 36.4 C L 36.5 C Heart Rate Heart Rate [ 86 78 85 Brachial] Respiratory 15 16 16 Rate Blood Pressure Blood Pressure 138/55 H 142/69 H 100/87 H [Left Brachial artery] O2 Saturation 98 97 96 02/11/20 02/11/20 02/11/20 03:53 08:05 08:27 Temperature 36.8 C 36.8 C 36.8 C Heart Rate 89 Heart Rate [ 96 89 Brachial] Respiratory 18 18 18 Rate Blood Pressure Blood Pressure 128/67 130/69 [Left Brachial artery] O2 Saturation 98 100 99 02/11/20 02/11/20 02/11/20 08:51 09:00 09:03 Temperature 37.0 C 37.0 C 37.0 C Heart Rate 91 Heart Rate [ 100 97 Brachial] Respiratory 20 22 18 Rate Blood Pressure 120/51 L Blood Pressure 136/59 H 110/56 L [Left Brachial artery] O2 Saturation 99 99 02/11/20 02/11/20 02/11/20 09:10 09:14 09:30 Temperature 36.8 C 36.9 C Heart Rate Heart Rate [ 100 99 98 Brachial] Respiratory 18 22 Rate Blood Pressure Blood Pressure 127/64 132/61 H 141/57 H [Left Brachial artery] O2 Saturation 99 99 02/11/20 02/11/20 10:41 11:23 Temperature 37.0 C 36.0 C L Heart Rate 98 Heart Rate [ 83 Brachial] Respiratory 20 20 Rate Blood Pressure 119/56 L Blood Pressure 137/59 H [Left Brachial artery] O2 Saturation 98 Oxygen O2 Source Nasal cannula Oxygen Flow Rate 2 I&O (Last 24 Hrs): Intake and Output Totals x24h 02/09/20 02/10/20 02/11/20 23:59 23:59 23:59 Intake Total 150 1120 Output Total 100 Balance 150 1020 General: Alert, No acute distress HEENT: Atraumatic Neck: Supple Lymphatic: no adenopathy Neuro: Alert, Non Focal, Oriented Times 3 Cardiovascular: Regular rate, Normal S1, Normal S2 Respiratory: Chest non-tender, No respiratory distress Abdomen: Normal bowel sounds, Soft, No tenderness Extremities: Normal pulses - Results Results: Laboratory Results WBC 21.6 x10^3/uL (4.8-10.8) H 02/11/20 05:05 RBC 3.97 10^6/uL (4.20-5.40) L 02/11/20 05:05 Hgb 11.8 g/dL (12.0-16.0) L 02/11/20 05:05 Hct 38.6 % (37.0-47.0) 02/11/20 05:05 MCV 97.2 fL (81.0-99.0) 02/11/20 05:05 MCH 29.7 pg (27.0-31.0) 02/11/20 05:05 MCHC 30.6 g/dL (32.0-36.0) L 02/11/20 05:05 RDW 14.3 % (12.0-15.0) 02/11/20 05:05 Plt Count 386 10^3/uL (130-450) 02/11/20 05:05 MPV 10.9 fL (7.9-10.8) H 02/11/20 05:05 Neut # (Auto) 17.9 10^3/uL (1.5-6.6) H 02/11/20 05:05 Lymph # (Auto) 1.6 10^3/uL (1.5-3.5) 02/11/20 05:05 Day # (Auto) 1.5 10^3/uL (0.0-1.0) H 02/11/20 05:05 Eos # (Auto) 0.2 10^3/uL (0.0-0.7) 02/11/20 05:05 Baso # (Auto) 0.1 10^3/uL (0.0-0.1) 02/11/20 05:05 Absolute Nucleated RBC 0.00 x10^3/uL 02/11/20 05:05 Band Neuts % (Manual) Not Reportable 02/11/20 05:05 Abnorm Lymph % (Manual) Not Reportable 02/11/20 05:05 Nucleated RBC % 0.0 /100WBC 02/11/20 05:05 Neutrophils # (Manual) Not Reportable 02/11/20 05:05 Lymphocytes # (Manual) Not Reportable 02/11/20 05:05 Monocytes # (Manual) Not Reportable 02/11/20 05:05 Eosinophils # (Manual) Not Reportable 02/11/20 05:05 Basophils # (Manual) Not Reportable 02/11/20 05:05 Differential Comment MANUAL=AUTO DIFF 02/11/20 05:05 Platelet Estimate NORMAL (130-450,000) (NORMAL) 02/11/20 05:05 RBC Morph Micro Appear NORMAL APPEARANCE (NORMAL) 02/11/20 05:05 PT 29.9 secs (9.9-12.6) H 02/11/20 05:45 INR 2.9 (0.8-1.2) H 02/11/20 05:45 Whole Blood INR 1.7 (0.8-1.2) H 02/11/20 12:43 APTT 29.6 secs (24.9-33.3) 02/10/20 17:30 Sodium 133 mmol/L (135-145) L 02/11/20 05:45 Potassium 4.4 mmol/L (3.5-5.0) 02/11/20 05:45 Chloride 100 mmol/L (101-111) L 02/11/20 05:45 Carbon Dioxide 23 mmol/L (21-32) 02/11/20 05:45 Anion Gap 10.0 (6-13) 02/11/20 05:45 BUN 16 mg/dL (6-20) 02/11/20 05:45 Creatinine 0.6 mg/dL (0.4-1.0) 02/11/20 05:45 Estimated GFR (MDRD) 95 (>89) 02/11/20 05:45 Glucose 111 mg/dL (70-100) H 02/11/20 05:45 Calcium 8.4 mg/dL (8.5-10.3) L 02/11/20 05:45 Total Bilirubin 0.5 mg/dL (0.2-1.0) 02/10/20 17:30 AST 49 IU/L (10-42) H 02/10/20 17:30 ALT 53 IU/L (10-60) 02/10/20 17:30 Alkaline Phosphatase 149 IU/L (42-121) H 02/10/20 17:30 Troponin I High Sens 6.9 ng/L (2.3-14.8) 02/10/20 17:30 Total Protein 6.8 g/dL (6.7-8.2) 02/10/20 17:30 Albumin 3.6 g/dL (3.2-5.5) 02/10/20 17:30 Globulin 3.2 g/dL (2.1-4.2) 02/10/20 17:30 Albumin/Globulin Ratio 1.1 (1.0-2.2) 10/21/20 17:30 Lipase 53 U/L (22-51) H 02/10/20 17:30 TSH 0.21 uIU/mL (0.34-5.60) L 02/11/20 05:45 Urine Color DARK YELLOW 02/11/20 09:23 Urine Clarity CLEAR (CLEAR) 02/11/20 09:23 Urine pH 6.5 PH (5.0-7.5) 02/11/20 09:23 Ur Specific [place] 1.025 (1.002-1.030) 02/11/20 09:23 Urine Protein 100 mg/dL (NEGATIVE) H 02/11/20 09:23 Urine Glucose (UA) NEGATIVE mg/dL (NEGATIVE) 02/11/20 09: Urine Ketones NEGATIVE mg/dL (NEGATIVE) 02/11/20 09: Urine Occult Blood NEGATIVE (NEGATIVE) 02/11/20 09: Urine Nitrite NEGATIVE (NEGATIVE) 02/11/20 09:23 Urine Bilirubin NEGATIVE (NEGATIVE) 02/11/20 09: Urine Urobilinogen 0.2 (NORMAL) E.U./dL (NORMAL) 02/11/20 09:23 Ur Leukocyte Esterase NEGATIVE (NEGATIVE) 02/11/20 09:23 Urine RBC 0-5 /HPF (0-5) 02/11/20 09: Urine WBC 0-3 /HPF (0-5) 02/11/20 09:23 Ur Squamous Epith Cells RARE Squamous (<= Few) 02/11/20 09:23 Urine Bacteria Rare /HPF (None Seen) 02/11/20 09: Blood Type A POSITIVE 02/10/20 18:47 Antibody Screen NEGATIVE 02/10/20 18:47 ABX Reporting Has patient been on IV antibiotics over the past 48 hours?: No Current Medications - Current Medications Current Medications: Active Medications Acetaminophen (Tylenol) 650 mg PO Q4HR PRN PRN Reason: Pain 1 to 4 Acetaminophen (Tylenol) 650 - 975 mg PO Q4HR PRN PRN Reason: PAIN Alprazolam (Xanax) 0.25 mg PO TID PRN PRN Reason: anxiety/insomnia Last Admin: 02/11/20 09:21 Dose: 0.25 mg Documented by: Sodium Chloride (Normal Saline 0.9%) 1,000 mls @ 100 mls/hr IV .Q10H WILMAR Last Admin: 02/12/20 06:02 Dose: 100 mls/hr Documented by: Acetaminophen (Ofirmev) 100 mls @ 400 mls/hr IV Q6HR PRN PRN Reason: PAIN Last Infusion: 02/12/20 06:24 Dose: Infused Documented by: Levothyroxine Sodium (Synthroid) 100 mcg PO QDAC [facility] Metoprolol Succinate (Toprol Xl) 25 mg PO DAILY [facility] Last Admin: 02/11/20 09:21 Dose: 25 mg Documented by: Morphine Sulfate (Morphine (Carpuject)) 2 mg IVP Q2HR PRN PRN Reason: PAIN Last Admin: 02/11/20 11:26 Dose: 2 mg Documented by: Ondansetron HCl (Zofran Inj) 4 mg IVP Q6HR PRN PRN Reason: Nausea / Vomiting Last Admin: 02/12/20 00:00 Dose: 4 mg Documented by: Ondansetron HCl (Zofran Inj) 4 mg IVP Q6HR PRN PRN Reason: Nausea / Vomiting Oxycodone HCl (Roxicodone) 5 mg PO Q4HR PRN PRN Reason: PAIN Oxycodone HCl (Roxicodone) 5 mg PO Q4HR PRN PRN Reason: PAIN Polyethylene Glycol (Miralax) 17 gm PO DAILY [facility] Last Admin: 02/11/20 09:24 Dose: Not Given Documented by: Prednisone (Deltasone) 1 mg PO DAILYWM [facility] Prochlorperazine Edisylate (Compazine Inj) 10 mg IVP Q6HR PRN PRN Reason: Nausea / Vomiting Prochlorperazine Edisylate (Compazine Inj) 10 mg IVP Q6HR PRN PRN Reason: Nausea / Vomiting Sodium Chloride (Normal Saline Flush 0.9%) 10 ml IVP PRN PRN PRN Reason: NEEDED PER PROVIDER ORDERS Last Admin: 02/10/20 19:38 Dose: 10 ml Documented by: Sodium Chloride (Normal Saline Flush 0.9%) 10 ml IVP 0100,0900,1700 [facility] Last Admin: 02/12/20 02:18 Dose: Not Given Documented by: Sodium Chloride (Normal Saline Flush 0.9%) 10 ml IVP 0100,0900,1700 [facility] Last Admin: 02/12/20 02:19 Dose: Not Given Documented by: Sodium Chloride (Normal Saline Flush 0.9%) 10 ml IVP PRN PRN PRN Reason: NEEDED PER PROVIDER ORDERS Trazodone HCl (Desyrel) 50 mg PO QPM PRN PRN Reason: Insomnia Last Admin: 02/11/20 01:48 Dose: 50 mg Documented by: Warfarin Sodium (Coumadin) 5 mg PO TUFR@2100 [facility] Warfarin Sodium (Coumadin) 3 mg PO SUMOWETHSA@2100 [facility] Warfarin Sodium (Coumadin) 1 mg PO TUFR@2100 [facility] Budesonide [Budesonide EC] 3 mg PO DAILY 10/12/14 Levothyroxine Sodium [Synthroid] 125 mcg PO DAILY 10/12/14 Omeprazole [PriLOSEC] 20 mg PO DAILY 10/12/14 Simvastatin 5 mg PO QPM 10/12/14 Warfarin Sodium [Coumadin] 6 mg PO TUFR@209910/12/14 Garlic 1 tab PO DAILY 04/27/19 Lactobacillus Acidophilus [Probiotic Acidophilus] 1 tab PO DAILY 04/27/19 [place]-3/Dha/Epa/Fish Oil [Fish Oil 1,000 mg Softgel] 3,000 mg PO DAILY 04/27/19 ALPRAZolam [Alprazolam] 0.2 mg PO TID PRN 04/28/19 Losartan Potassium 25 mg PO DAILY 04/28/19 Metoprolol Succinate [Toprol Xl] 25 mg PO DAILY 04/28/19 Warfarin Sodium 3 mg PO SUMOWEA@209904/28/19 predniSONE [Deltasone] 2 mg PO DAILYWM 04/28/19 ursodioL [Jordon 250] 250 mg PO TID 04/28/19 Prednisone 1 mg PO DAILY 01/07/20
[2020-02-11] MEDS ORDERED: fentaNYL 100 MCG/2 ML VIAL IVP ONE (15:51)
[2020-02-11] MEDS ORDERED: PROPOFOL 200 MG/20 ML VIAL IVP ONE (15:51)
[2020-02-11] MEDS ORDERED: GLYCOPYRROLATE 1 MG/5 ML VIAL IVP ONE (15:51)
[2020-02-11] MEDS ORDERED: ONDANSETRON 4 MG/2 ML VIAL IVP ONE (15:51)
[2020-02-11] MEDS ORDERED: TRANEXAMIC ACID 1,000 MG/10 ML VIAL IV ONE (15:51)
[2020-02-11] MEDS ORDERED: ROCURONIUM 50 MG/5 ML VIAL IVP ONE (15:51)
[2020-02-11] MEDS ORDERED: NEOSTIGMINE 1 MG/1 ML 10 ML MDV IVP ONE (15:51)
[2020-02-11] MEDS ORDERED: LIDOCAINE-MPF 2% 5 ML VIAL IM ONE (15:51)
[2020-02-11] MEDS ORDERED: MIDAZOLAM 2 MG/2 ML VIAL IVP ONE (15:51)
[2020-02-11] MEDS ORDERED: DEXAMETHASONE 4 MG/ML VIAL IVP ONE (15:51)
[2020-02-11] MEDS ORDERED: BUPIVACAINE 0.25%-EPI 1:200000 PF 30 ML VIAL SUBQ ONE ×2 (15:58)
--- NOTE | 2020-02-11 16:29 | ANESTHESIA ---
Pre-Anesthesia VS, & Labs - Diagnosis Fx L hip - Procedure L hip hemiarthroplasty Vital Signs: Temp Pulse Resp BP Pulse Ox 37.2 C 102 H 18 149/62 H 97 02/11/20 15:37 02/11/20 15:37 02/11/20 15:37 02/11/20 15:37 02/11/20 15:37 Height: 5 ft 4 in Weight (kg): 80 kg Body Mass Index: 30.2 BMI Classification: Obese - NPO >8 hours - Is Patient ?: No - Lab Results Current Lab Results: Laboratory Tests 02/11/20 12:43: Whole Blood INR 1.7 H 02/11/20 05:45: TSH 0.21 L 02/11/20 05:45: PT 29.9 H, INR 2.9 H 02/11/20 05:45: Sodium 133 L, Potassium 4.4, Chloride 100 L, Carbon Dioxide 23, Anion Gap 10.0, BUN 16, Creatinine 0.6, Estimated GFR (MDRD) 95, Glucose 111 H, Calcium 8.4 L 02/11/20 05:05: WBC 21.6 H, RBC 3.97 L, Hgb 11.8 L, Hct 38.6, MCV 97.2, MCH 29.7, MCHC 30.6 L, RDW 14.3, Plt Count 386, MPV 10.9 H, Neut # (Auto) 17.9 H, Lymph # (Auto) 1.6, [place] # (Auto) 1.5 H, Eos # (Auto) 0.2, Baso # (Auto) 0.1, Absolute Nucleated RBC 0.00, Band Neuts % (Manual) Not Reportable, Abnorm Lymph % (Manual) Not Reportable, Nucleated RBC % 0.0, Neutrophils # (Manual) Not Reportable, Lymphocytes # (Manual) Not Reportable, Monocytes # (Manual) Not Reportable, Eosinophils # (Manual) Not Reportable, Basophils # (Manual) Not Reportable, Differential Comment MANUAL=AUTO DIFF, Platelet Estimate NORMAL (130-450,000), RBC Morph Micro Appear NORMAL APPEARANCE 02/10/20 18:47: Blood Type A POSITIVE, Antibody Screen NEGATIVE 02/10/20 17:30: PT 32.5 H, INR 3.1 H, APTT 29.6 02/10/20 17:30: Troponin I High Sens 6.9 02/10/20 17:30: Sodium 134 L, Potassium 4.7, Chloride 96 L, Carbon Dioxide 25, Anion Gap 13.0, BUN 17, Creatinine 0.7, Estimated GFR (MDRD) 80 L, Glucose 124 H , Calcium 9.1, Total Bilirubin 0.5, AST 49 H, ALT 53, Alkaline Phosphatase 149 H , Total Protein 6.8, Albumin 3.6, Globulin 3.2, Albumin/Globulin Ratio 1.1, Lipase 53 H 02/10/20 17:30: WBC 13.6 H, RBC 4.36, Hgb 13.3, Hct 39.9, MCV 91.5, MCH 30.5, MCHC 33.3, RDW 14.0, Plt Count 474 H, MPV 10.4, Neut # (Auto) 9.4 H, Lymph # (Auto) 2.8, Dale # (Auto) 1.0, Eos # (Auto) 0.1, Baso # (Auto) 0.1, Absolute Nucleated RBC 0.00, Nucleated RBC % 0.0 Lab results reviewed: Yes Fish Bones: 02/11/20 05:05 02/11/20 05:45 Home Medications and Allergies Active Medications Acetaminophen (Tylenol) 650 mg PO Q4HR PRN PRN Reason: Pain 1 to 4 Alprazolam (Xanax) 0.25 mg PO TID PRN PRN Reason: anxiety/insomnia Last Admin: 02/11/20 09:21 Dose: 0.25 mg Documented by: Sodium Chloride (Normal Saline 0.9%) 1,000 mls @ 100 mls/hr IV .Q10H WILMAR Last Infusion: 02/11/20 14:39 Dose: 100 mls/hr Documented by: Levothyroxine Sodium (Synthroid) 112 mcg PO QDAC [facility] Metoprolol Succinate (Toprol Xl) 25 mg PO DAILY [facility] Last Admin: 02/11/20 09:21 Dose: 25 mg Documented by: Morphine Sulfate (Morphine (Carpuject)) 2 mg IVP Q2HR PRN PRN Reason: PAIN Last Admin: 02/11/20 11:26 Dose: 2 mg Documented by: Ondansetron HCl (Zofran Inj) 4 mg IVP Q6HR PRN PRN Reason: Nausea / Vomiting Last Admin: 02/11/20 11:24 Dose: 4 mg Documented by: Oxycodone HCl (Roxicodone) 5 mg PO Q4HR PRN PRN Reason: PAIN Polyethylene Glycol (Miralax) 17 gm PO DAILY [facility] Last Admin: 02/11/20 09:24 Dose: Not Given Documented by: Prochlorperazine Edisylate (Compazine Inj) 10 mg IVP Q6HR PRN PRN Reason: Nausea / Vomiting Sodium Chloride (Normal Saline Flush 0.9%) 10 ml IVP PRN PRN PRN Reason: NEEDED PER PROVIDER ORDERS Last Admin: 02/10/20 19:38 Dose: 10 ml Documented by: Sodium Chloride (Normal Saline Flush 0.9%) 10 ml IVP 0100,0900,1700 [facility] Last Admin: 02/11/20 09:24 Dose: 10 ml Documented by: Trazodone HCl (Desyrel) 50 mg PO QPM PRN PRN Reason: Insomnia Last Admin: 02/11/20 01:48 Dose: 50 mg Documented by: Budesonide [Budesonide EC] 3 mg PO DAILY 10/12/14 Levothyroxine Sodium [Synthroid] 125 mcg PO DAILY 10/12/14 Omeprazole [PriLOSEC] 20 mg PO DAILY 10/12/14 Simvastatin 5 mg PO QPM 10/12/14 Warfarin Sodium [Coumadin] 6 mg PO TUFR@209910/12/14 Garlic 1 tab PO DAILY 04/27/19 Lactobacillus Acidophilus [Probiotic Acidophilus] 1 tab PO DAILY 04/27/19 [place]-3/Dha/Epa/Fish Oil [Fish Oil 1,000 mg Softgel] 3,000 mg PO DAILY 04/27/19 ALPRAZolam [Alprazolam] 0.2 mg PO TID PRN 04/28/19 Losartan Potassium 25 mg PO DAILY 04/28/19 Metoprolol Succinate [Toprol Xl] 25 mg PO DAILY 04/28/19 Warfarin Sodium 3 mg PO SUMOWETHSA@209904/28/19 predniSONE [Deltasone] 2 mg PO DAILYWM 04/28/19 ursodioL [Jordon 250] 250 mg PO TID 04/28/19 Prednisone 1 mg PO DAILY 01/07/20 Allergies/Adverse Reactions: Allergies Allergy/AdvReac Type Severity Reaction Status Date / Time sertraline Allergy Unknown Verified 04/28/19 15:58 Sulfa (Sulfonamide Allergy Edema Verified 04/27/19 06:43 Antibiotics) Anes History & Medical History - Anesthetic History Anesthesia Complications: reports: No previous complications Family history of Anesthesia Complications: Denies Family history of Malignant Hyperthermia: Denies - Medical History Cardiovascular: reports: Hypertension, High cholesterol, Atrial fibrillation, Other Pulmonary: reports: None Gastrointestinal: reports: None Urinary: reports: Incontinence Neuro: reports: CVA Musculoskeletal: reports: Osteoarthritis Endocrine/Autoimmune: reports: HyPOthyroidism Blood Disorders: reports: None Skin: reports: Herpes zoster Smoking Status: Never smoker - Surgical History General: Cholecystectomy Eyes Ears Nose Throat (EENT): Tonsil/Adenoidectomy Orthopedic: Hip replacement Exam General: Alert, Oriented x3, Cooperative Dental: Dentures full Upper, Dentures full Lower Mouth Openin Fingerbreadth Neck Mobility: Normal Mallampati classification: III Thyromental Distance: 4-6 cm Respiratory: Normal breath sounds, No respiratory distress Cardiovascular: Regular rate (tachy, hx AF) Neurological: Normal speech Mental/Cognitive Status: Alert/Oriented X3, Normal for patient Cognitive Status: Within normal limits Plan Anesthesia Type: General (INR 1.7), Fascia Iliaca Block (post op) Consent for Procedure(s) Verified and Reviewed: Yes Code Status: Attempt Resuscitation ASA classification: 3-Severe systemic disease Is this case an emergency?: Yes
[2020-02-11] MEDS ORDERED: METOCLOPRAMIDE 10 MG/2 ML VIAL IVP PRN (16:30)
[2020-02-11] MEDS ORDERED: fentaNYL 100 MCG/2 ML VIAL IVP PRN (16:30)
[2020-02-11] MEDS ORDERED: NALOXONE 0.4 MG/ML VIAL IVP PRN (16:30)
[2020-02-11] MEDS ORDERED: ATROPINE ABBOJECT 1 MG/10 ML SYRINGE IVP PRN (16:30)
[2020-02-11] MEDS ORDERED: MORPHINE 2 MG/ML CARPUJECT IVP PRN (16:30)
[2020-02-11] MEDS ORDERED: ONDANSETRON 4 MG/2 ML VIAL IVP PRN ×2 (16:30→18:10)
[2020-02-11] MEDS ORDERED: HYDROmorphone 0.5 MG/0.5 ML SYRINGE IVP PRN (16:30)
[2020-02-11] MEDS ORDERED: ePHEDrine 50 MG/ML VIAL IVP PRN (16:30)
[2020-02-11] MEDS ORDERED: LACTATED RINGERS 1,000 ML IV SCH (17:00)
--- NOTE | 2020-02-11 17:56 | OPERATIVE REPORT ---
Operative Report - General Admit Date: 02/10/20 Procedure Date: 02/11/20 Planned Procedure: Left hip hemiarthroplasty Pre-Op Diagnosis: Displaced femoral neck fracture left hip Procedure Performed: Left hip hemiarthroplasty, noncemented, [employer]hew #15 Synergy femoral component, 48 mm unipolar head, -3 neck with high offset Post Op Diagnosis: Same as preoperative diagnosis - Procedure Note Primary Surgeon: Brendon Lopes MD Secondary Surgeon: OANH Estrella Anesthesia Provider: Don English Anesthesia Technique: General ET tube Estimated Blood Loss (mL): 100 Indications: This is an 84-year-old ambulatory woman fell yesterday coming off a curb and landed on left hip. She had immediate pain to left hip and thigh, shortening and external rotation deformity left leg, marked pain with passive movement left hip and x-rays which show displaced femoral neck fracture left hip. She has had previous hemiarthroplasty to the opposite right hip 7 years ago. She was on Coumadin anticoagulation for atrial fibrillation. She was seen by the hospitalist preoperatively and the anticoagulation was reversed to an INR of 1.7 to allow safe for surgery today. She was admitted last night. Findings: Displaced femoral neck fracture left hip with relatively normal-appearing articular cartilage to acetabulum and femoral head. Complications: None noted - Other Other Information/Narrative: The patient was brought to the operating room and was given a general endotracheal anesthetic. She was transferred to the operating room table and placed in a lateral decubitus position with the left hip facing superiorly. She was secured in the lateral decubitus position using a pegboard and post with 3 post. The left hip and left lower extremity was prepped and draped in a sterile manner in the usual fashion. A timeout procedure was performed by the entire operating room team and all were in agreement. A longitudinal lateral incision was made approximately 13 cm beginning just below the greater trochanter and extending it above the greater trochanter. The subcutaneous tissue and the fascia eva were divided in line with the incision. An anterolateral approach was made with release of the anterior one third of the gluteus medius at the myotendinous junction. The gluteus minimus was released. The anterior hip capsule was exposed in a T-shaped fashion and partially excised to expose the femoral head. The femoral head was removed with a corkscrew and hip skid. The femoral head measured 48 mm in diameter. The left leg was placed in a anterior hip pocket. The femoral canal was opened with a box osteotome and then tapered reamers to fit a #14 or 15 broach. The canal was then broached up to a #15 in 1 mm increments. Calcar reaming was performed with the calcar reamer. A stable fit was achieved with the broach to push pull and rotation. A trial reduction was performed and the hip was found to be stable. A high offset femoral neck gave better stability. Therefore, a #15 femoral component, high offset was impacted and had excellent stability to push pull and torsion. It did sit about 4 to 5 mm proud and for this reason a -3 mm head neck was utilized as well as a 48 unipolar head. The head was then impacted on the femoral trunnion. The hip was reduced and found to be stable through range of motion and had good leg length tension. The wound was irrigated with dilute Betadine for 3 minutes. The gluteus medius was repaired with #1 Vicryl suture at the myotendinous junction. The fascia eva was closed with #1 Vicryl. The subcutaneous tissue was closed with 0 Vicryl. The skin was closed with a subcuticular 3-0 Monocryl suture as well as Dermabond. After the Dermabond had dried, a silver impregnated dressing was applied. Her range of motion to the left hip was very good. She tolerated the procedure well. She did receive 2 g of Ancef intravenously. She also received tranxamic acid, 2 g
[2020-02-11] MEDS ORDERED: SODIUM CHLORIDE FLUSH 0.9% 10 ML SYRINGE IVP PRN (18:10)
[2020-02-11] MEDS ORDERED: LACTATED RINGERS 1,000 ML IV ONE (18:17)
[2020-02-11] MEDS ORDERED: SUGAMMADEX 200 MG/2 ML VIAL IVP ONE (18:18)
--- NOTE | 2020-02-11 18:53 | ANESTHESIA POST OP EVALUATION ---
Anesthesia Post Eval - Post Anesthesia Eval Vitals: Last Vital Signs Temp 36.2 C L 02/11/20 18:17 Pulse 80 02/11/20 18:45 Resp 14 02/11/20 18:45 BP 121/65 02/11/20 18:45 Pulse Ox 94 02/11/20 18:45 CV Function Including HR & BP: positive: Stable Pain Control: positive: Satisfactory Nausea & Vomiting: positive: Negative Mental Status: positive: Baseline Respiratory Status: Airway Patent Hydration Status: Satisfactory Anesthesia Complications: positive: None
[2020-02-11] MEDS: ACETAMINOPHEN 1,000 MG/100 ML 100 ML IV PRN (23:37)
[2020-02-11] MEDS: ceFAZolin 2 GM in SODIUM CHLORIDE 0.9% 100ML 100 ML IV SCH (23:40)
[2020-02-11] MEDS ORDERED: SODIUM CHLORIDE 0.9% 100ML 100 ML IV ONE (23:43)
[2020-02-11 23:56] LABS: HGB - HEMOGLOBIN 10.3 g/dL (12.0-16.0)
[2020-02-12] MEDS: SODIUM CHLORIDE FLUSH 0.9% 10 ML SYRINGE IVP SCH ×5 (02:18→17:15)
[2020-02-12 05:33] LABS: BASOPHILS % (AUTO) 0.2 %; HGB - HEMOGLOBIN 9.7 g/dL (12.0-16.0); LYMPHOCYTES # (AUTO) 0.8 10^3/uL (1.5-3.5); LYMPHOCYTES % (AUTO) 4.9 %; MEAN CORPUSCULAR HEMOGLOBIN 29.9 pg (27.0-31.0); MEAN CORPUSCULAR HGB CONC 31.9 g/dL (32.0-36.0); MEAN CORPUSCULAR VOLUME 93.8 fL (81.0-99.0); MEAN PLATELET VOLUME 10.6 fL (7.9-10.8); MONOCYTES # (AUTO) 0.9 10^3/uL (0.0-1.0); MONOCYTES % (AUTO) 5.2 %; NEUTROPHILS # (AUTO) 15.3 10^3/uL (1.5-6.6); NEUTROPHILS % (AUTO) 88.9 %; PLT - PLATELET COUNT 338 10^3/uL (130-450); RED BLOOD COUNT 3.24 10^6/uL (4.20-5.40); RED CELL DISTRIBUTION WIDTH 14.5 % (12.0-15.0); WHITE BLOOD COUNT 17.2 x10^3/uL (4.8-10.8)
[2020-02-12 05:37] LABS: INR 1.5 (0.8-1.2); PT - PROTHROMBIN TIME 16.7 secs (9.9-12.6)
[2020-02-12 05:41] LABS: CALCIUM 8.4 mg/dL (8.5-10.3); CREATININE 0.7 mg/dL (0.4-1.0)
[2020-02-12] MEDS: SODIUM CHLORIDE 0.9% 1,000 ML IV SCH (06:02)
[2020-02-12] MEDS: ACETAMINOPHEN 1,000 MG/100 ML 100 ML IV PRN (06:02)
[2020-02-12] MEDS ORDERED: LEVOTHYROXINE 112 MCG TABLET PO SCH (07:00)
[2020-02-12] MEDS: ceFAZolin 2 GM in SODIUM CHLORIDE 0.9% 100ML 100 ML IV SCH (08:16)
[2020-02-12] MEDS: predniSONE 1 MG TABLET PO SCH ×2 (08:17→12:08)
[2020-02-12] MEDS: ONDANSETRON 4 MG/2 ML VIAL IVP PRN ×2 (08:17)
[2020-02-12] MEDS: METOPROLOL SUCCINATE 25 MG TABLET PO SCH (08:17)
[2020-02-12] MEDS: polyethylene glycoL 3350 17 GM PACKET PO SCH (08:18)
[2020-02-12 08:20] LABS: ABSOLUTE RETICS # AUTO 0.044 10^6/uL (0.020-0.110); RED BLOOD COUNT 3.16 10^6/uL (4.20-5.40)
[2020-02-12 08:39] LABS: % IRON SATURATION 11 % (20-50); IRON 28 ug/dL (28-170); TOTAL IRON BINDING CAPACITY 248 ug/dL (250-450); TRANSFERRIN 177 mg/dL (192-382)
[2020-02-12 08:50] LABS: FERRITIN 122.6 ng/mL (11.0-306.8)
--- NOTE | 2020-02-12 09:11 | PROVIDER PROGRESS NOTE ---
Assessment/Plan - Problem List (1) Closed left hip fracture Qualifiers: Encounter type: initial encounter Qualified Code(s): S72.002A - Fracture of unspecified part of neck of left femur, initial encounter for closed fracture Assessment/Plan: 1022, This is day 1 of status post of hip repair. Patient reported she had good sleep on last night, she denied fever, shortness of breathing, chest pain. She reported she has no pain if she does not move her leg. Continue PT/OT, Pain control We will D/C the [place] on today, we will check hemoglobin on this afternoon. continue followup with orthopedics care pt's INR is 1.5, will resume Coumadin, also as DVT Prophylaxis. 02/10 Patient reported she feel good but she felt nausea when she was give pain medication. Order another antiemesis medication PRN. Patient's INR is 1.7 after she had a 1 units FFP. We will follow-up with orthopedic surgeon for pt's care. we also monitor H&H (2) postoperative anemia 1022, patient hemoglobin is 9.7 on today, patient had a hemoglobin 13.3 in the admission. Iron studies show patient iron is 28 at the borderline, Patient's face become pale but she Denies shortness of breathing, dizziness, lightheaded. We will H&H on this afternoon, order iron pill for patient (3) History of atrial fibrillation Conclusion/Plan: 1022, pulse is controlled, INR is 1.5, we will resume patient home Coumadin, continue PT/INR check. 02/10 INR is 1.7 after Patient had a 1 units of FFP Continue patient's metoprolol XL 25 mg p.o. daily (4) Hypertension 02/10 stable Continue metoprolol 25 mg p.o. daily (5) Hypothyroidism Conclusion/Plan: 02/11 TSH is low, free T4 is high, We will reduce Synthroid to 100 mcg daily, Follow-up with her PCP continue management 02/10 TS H is low, reduce Synthroid to 112 mcg p.o. daily. (6) Hyperlipidemia stable (7) Anxiety Conclusion/Plan: continue alprazolam 0.25 mg p.o. 3 times daily as needed (8) hx of autoimmune cholangitis pt take steroid at home, will resume. that could be explained for her elevated WBC - Current Meds Current Meds: Current Medications Generic Name Dose Route Start Last Admin Trade Name Freq PRN Reason Stop Dose Admin Alprazolam 0.25 mg 02/11/20 08:46 02/11/20 09:21 Xanax PO 0.25 mg TID PRN Administration anxiety/insomnia Sodium Chloride 1,000 mls @ 100 mls/hr 02/10/20 20:00 02/12/20 06:02 Normal Saline 0.9% IV 100 mls/hr .Q10H [facility] Administration Acetaminophen 100 mls @ 400 mls/hr 02/11/20 18:10 02/12/20 06:24 Ofirmev IV Infused Q6HR PRN Infusion PAIN Metoprolol Succinate 25 mg 02/11/20 09:00 02/12/20 08:17 Toprol Xl PO 25 mg DAILY [facility] Administration Morphine Sulfate 2 mg 02/10/20 19:31 02/11/20 11:26 Morphine (Carpuject) IVP 2 mg Q2HR PRN Administration PAIN Ondansetron HCl 4 mg 02/10/20 19:13 02/12/20 08:17 Zofran Inj IVP 4 mg Q6HR PRN Administration Nausea / Vomiting Polyethylene Glycol 17 gm 02/11/20 09:00 02/12/20 08:18 Miralax PO 17 gm DAILY [facility] Administration Prednisone 1 mg 02/12/20 08:00 02/12/20 08:17 Deltasone PO Not Given DAILYWM [facility] Sodium Chloride 10 ml 02/10/20 19:13 02/10/20 19:38 Normal Saline Flush 0.9% IVP 10 ml PRN PRN Administration NEEDED PER PROVIDER ORDERS Sodium Chloride 10 ml 02/11/20 01:00 02/12/20 08:21 Normal Saline Flush 0.9% IVP 10 ml 0100,0900,1700 [facility] Administration Sodium Chloride 10 ml 02/12/20 01:00 02/12/20 08:25 Normal Saline Flush 0.9% IVP Not Given 0100,0900,1700 [facility] Trazodone HCl 50 mg 02/11/20 00:28 02/11/20 01:48 Desyrel PO 50 mg QPM PRN Administration Insomnia - Lab Result Fish Bone Diagrams: 02/12/20 05:20 02/12/20 05:20 - Additional Planning My Orders: My Active Orders 02/11/20 08:46 ALPRAZolam [Xanax] 0.25 mg PO TID PRN 02/11/20 09:00 Metoprolol Succinate [Toprol Xl] 25 mg PO DAILY 02/11/20 13:35 Prochlorperazine Inj [Compazine Inj] 10 mg IVP Q6HR PRN 02/12/20 05:20 FERRITIN [IAI] Routine VITAMIN B12 [IAI] Routine 02/12/20 06:15 COVID-19 REFERENCE TEST Routine 02/12/20 08:00 predniSONE [Deltasone] 1 mg PO DAILYWM 02/12/20 10:00 Ferrous Sulfate [Feosol] 325 mg PO DAILYWM 02/12/20 19:00 H&H [HEMOGLOBIN AND HEMATOCRIT] [HEME] Timed 02/12/20 21:00 Warfarin [Coumadin] 1 mg PO TUFR@2100 Warfarin [Coumadin] 5 mg PO TUFR@2100 02/13/20 07:00 Levothyroxine [Synthroid] 100 mcg PO QDAC 02/13/20 21:00 Warfarin [Coumadin] 3 mg PO SUMOWETHSA@2100 Subjective - Subjective Patient Reports: Feeling Better Nursing Reports: No Complaints Objective Vital Signs: Vital Signs - 24 hr 02/11/20 02/11/20 02/11/20 09:10 09:14 09:30 Temperature 36.8 C 36.9 C Heart Rate Heart Rate [ 100 99 98 Brachial] Respiratory 18 22 Rate Blood Pressure Blood Pressure 127/64 132/61 H 141/57 H [Left Brachial artery] Blood Pressure [Left Radial artery] O2 Saturation 99 99 02/11/20 02/11/20 02/11/20 10:41 11:23 15:37 Temperature 37.0 C 36.0 C L 37.2 C Heart Rate 98 Heart Rate [ 83 102 H Brachial] Respiratory 20 20 18 Rate Blood Pressure 119/56 L Blood Pressure 137/59 H 149/62 H [Left Brachial artery] Blood Pressure [Left Radial artery] O2 Saturation 98 97 02/11/20 02/11/20 02/11/20 18:17 18:24 18:30 Temperature 36.2 C L Heart Rate 100 100 99 Heart Rate [ Brachial] Respiratory 16 15 15 Rate Blood Pressure 134/83 H 124/76 144/65 H Blood Pressure [Left Brachial artery] Blood Pressure [Left Radial artery] O2 Saturation 94 97 95 02/11/20 02/11/20 02/11/20 18:36 18:42 18:45 Temperature Heart Rate 96 90 80 Heart Rate [ Brachial] Respiratory 15 12 14 Rate Blood Pressure 129/78 143/61 H 121/65 Blood Pressure [Left Brachial artery] Blood Pressure [Left Radial artery] O2 Saturation 91 L 93 94 02/11/20 02/11/20 02/11/20 19:00 19:30 20:00 Temperature 37.0 C 37.0 C 37.0 C Heart Rate Heart Rate [ 89 89 90 Brachial] Respiratory 16 16 16 Rate Blood Pressure Blood Pressure 137/64 H 139/55 H 132/65 H [Left Brachial artery] Blood Pressure [Left Radial artery] O2 Saturation 92 94 96 02/11/20 02/11/20 02/11/20 21:00 22:00 23:36 Temperature 36.4 C L 36.4 C L 35.2 C L Heart Rate Heart Rate [ 73 90 104 H Brachial] Respiratory 16 16 20 Rate Blood Pressure Blood Pressure 114/52 L 132/62 H [Left Brachial artery] Blood Pressure 139/62 H [Left Radial artery] O2 Saturation 96 97 99 02/12/20 02/12/20 04:26 08:00 Temperature 36.9 C 37 C Heart Rate Heart Rate [ 92 80 Brachial] Respiratory 18 18 Rate Blood Pressure Blood Pressure 137/53 H [Left Brachial artery] Blood Pressure 134/58 H [Left Radial artery] O2 Saturation 93 97 Oxygen O2 Source Nasal cannula Oxygen Flow Rate 2 I&O (Last 24 Hrs): Intake and Output Totals x24h 02/10/20 02/11/20 02/12/20 23:59 23:59 23:59 Intake Total 150 2506.666 1033.334 Output Total 500 150 Balance 150 2006.666 883.334 General: Alert, Oriented x3, No acute distress HEENT: Atraumatic Neck: Supple Lymphatic: no adenopathy Neuro: Alert, Non Focal, Oriented Times 3 Cardiovascular: Regular rate, Normal S1, Normal S2 Respiratory: Chest non-tender, No respiratory distress, Breath sounds nml Abdomen: Normal bowel sounds, Soft, No tenderness Extremities: Normal pulses - Results Results: Laboratory Results WBC 17.2 x10^3/uL (4.8-10.8) H 02/12/20 05:20 RBC 3.16 10^6/uL (4.20-5.40) L 02/12/20 05:20 RBC 3.24 10^6/uL (4.20-5.40) L 02/12/20 05:20 Hgb 9.7 g/dL (12.0-16.0) L 02/12/20 05:20 Hct 30.4 % (37.0-47.0) L 02/12/20 05:20 MCV 93.8 fL (81.0-99.0) 02/12/20 05:20 MCH 29.9 pg (27.0-31.0) 02/12/20 05:20 MCHC 31.9 g/dL (32.0-36.0) L 02/12/20 05:20 RDW 14.5 % (12.0-15.0) 02/12/20 05:20 Plt Count 338 10^3/uL (130-450) 02/12/20 05:20 MPV 10.6 fL (7.9-10.8) 02/12/20 05:20 Reticulocyte % (Auto) 1.39 % (0.5-2.3) 02/12/20 05:20 Neut # (Auto) 15.3 10^3/uL (1.5-6.6) H 02/12/20 05:20 Lymph # (Auto) 0.8 10^3/uL (1.5-3.5) L 02/12/20 05:20 [place] # (Auto) 0.9 10^3/uL (0.0-1.0) 02/12/20 05:20 Eos # (Auto) 0.0 10^3/uL (0.0-0.7) 02/12/20 05:20 Baso # (Auto) 0.0 10^3/uL (0.0-0.1) 02/12/20 05:20 Absolute Nucleated RBC 0.00 x10^3/uL 02/12/20 05:20 Band Neuts % (Manual) Not Reportable 02/11/20 05:05 Abnorm Lymph % (Manual) Not Reportable 02/11/20 05:05 Nucleated RBC % 0.0 /100WBC 02/12/20 05:20 Neutrophils # (Manual) Not Reportable 02/11/20 05:05 Lymphocytes # (Manual) Not Reportable 02/11/20 05:05 Monocytes # (Manual) Not Reportable 02/11/20 05:05 Eosinophils # (Manual) Not Reportable 02/11/20 05:05 Basophils # (Manual) Not Reportable 02/11/20 05:05 Differential Comment MANUAL=AUTO DIFF 02/11/20 05:05 Platelet Estimate NORMAL (130-450,000) (NORMAL) 02/11/20 05:05 RBC Morph Micro Appear NORMAL APPEARANCE (NORMAL) 02/11/20 05:05 Absolute Retic 0.044 10^6/uL (0.020-0.110) 02/12/20 05:20 PT 16.7 secs (9.9-12.6) H 02/12/20 05:20 INR 1.5 (0.8-1.2) H 02/12/20 05:20 Whole Blood INR 1.7 (0.8-1.2) H 02/11/20 12:43 APTT 29.6 secs (24.9-33.3) 02/10/20 17:30 Sodium 134 mmol/L (135-145) L 02/12/20 05:20 Potassium 4.2 mmol/L (3.5-5.0) 02/12/20 05:20 Chloride 103 mmol/L (101-111) 02/12/20 05:20 Carbon Dioxide 21 mmol/L (21-32) 02/12/20 05:20 Anion Gap 10.0 (6-13) 02/12/20 05:20 BUN 18 mg/dL (6-20) 02/12/20 05:20 Creatinine 0.7 mg/dL (0.4-1.0) 02/12/20 05:20 Estimated GFR (MDRD) 80 (>89) L 02/12/20 05:20 Glucose 134 mg/dL (70-100) H 02/12/20 05:20 Calcium 8.4 mg/dL (8.5-10.3) L 02/12/20 05:20 Iron 28 ug/dL (28-170) 02/12/20 05:20 TIBC 248 ug/dL (250-450) L 02/12/20 05:20 % Saturation 11 % (20-50) L 02/12/20 05:20 Transferrin 177 mg/dL (192-382) L 02/12/20 05:20 Ferritin 122.6 ng/mL (11.0-306.8) 02/12/20 05:20 Total Bilirubin 0.5 mg/dL (0.2-1.0) 02/10/20 17:30 AST 49 IU/L (10-42) H 02/10/20 17:30 ALT 53 IU/L (10-60) 02/10/20 17:30 Alkaline Phosphatase 149 IU/L (42-121) H 02/10/20 17:30 Lactate Dehydrogenase 186 IU/L (91-225) 02/12/20 05:20 Troponin I High Sens 6.9 ng/L (2.3-14.8) 02/10/20 17:30 Total Protein 6.8 g/dL (6.7-8.2) 02/10/20 17:30 Albumin 3.6 g/dL (3.2-5.5) 02/10/20 17:30 Globulin 3.2 g/dL (2.1-4.2) 02/10/20 17:30 Albumin/Globulin Ratio 1.1 (1.0-2.2) 02/10/20 17:30 Lipase 53 U/L (22-51) H 02/10/20 17:30 TSH 0.21 uIU/mL (0.34-5.60) L 02/11/20 05:45 Free T4 2.04 ng/dL (0.58-1.64) H 02/12/20 05:20 Urine Color DARK YELLOW 02/11/20 09:23 Urine Clarity CLEAR (CLEAR) 02/11/20 09:23 Urine pH 6.5 PH (5.0-7.5) 02/11/20 09:23 Ur Specific Ruby 1.025 (1.002-1.030) 02/11/20 09:23 Urine Protein 100 mg/dL (NEGATIVE) H 02/11/20 09:23 Urine Glucose (UA) NEGATIVE mg/dL (NEGATIVE) 02/11/20 09:23 Urine Ketones NEGATIVE mg/dL (NEGATIVE) 02/11/20 09:23 Urine Occult Blood NEGATIVE (NEGATIVE) 02/11/20 09:23 Urine Nitrite NEGATIVE (NEGATIVE) 02/11/20 09:23 Urine Bilirubin NEGATIVE (NEGATIVE) 02/11/20 09:23 Urine Urobilinogen 0.2 (NORMAL) E.U./dL (NORMAL) 02/11/20 09:23 Ur Leukocyte Esterase NEGATIVE (NEGATIVE) 02/11/20 09:23 Urine RBC 0-5 /HPF (0-5) 02/11/20 09:23 Urine WBC 0-3 /HPF (0-5) 02/11/20 09:23 Ur Squamous Epith Cells RARE Squamous (<= Few) 02/11/20 09:23 Urine Bacteria Rare /HPF (None Seen) 02/11/20 09:23 Blood Type A POSITIVE 02/10/20 18:47 Antibody Screen NEGATIVE 02/10/20 18:47 ABX Reporting Has patient been on IV antibiotics over the past 48 hours?: Yes Current Medications - Current Medications Current Medications: Active Medications Acetaminophen (Tylenol) 650 mg PO Q4HR PRN PRN Reason: Pain 1 to 4 Acetaminophen (Tylenol) 650 - 975 mg PO Q4HR PRN PRN Reason: PAIN Alprazolam (Xanax) 0.25 mg PO TID PRN PRN Reason: anxiety/insomnia Last Admin: 02/11/20 09:21 Dose: 0.25 mg Documented by: Ferrous Sulfate (Feosol) 325 mg PO DAILYWM [facility] Sodium Chloride (Normal Saline 0.9%) 1,000 mls @ 100 mls/hr IV .Q10H [facility] Last Admin: 02/12/20 06:02 Dose: 100 mls/hr Documented by: Acetaminophen (Ofirmev) 100 mls @ 400 mls/hr IV Q6HR PRN PRN Reason: PAIN Last Infusion: 02/12/20 06:24 Dose: Infused Documented by: Levothyroxine Sodium (Synthroid) 100 mcg PO QDAC [facility] Metoprolol Succinate (Toprol Xl) 25 mg PO DAILY [facility] Last Admin: 02/12/20 08:17 Dose: 25 mg Documented by: Morphine Sulfate (Morphine (Carpuject)) 2 mg IVP Q2HR PRN PRN Reason: PAIN Last Admin: 02/11/20 11:26 Dose: 2 mg Documented by: Ondansetron HCl (Zofran Inj) 4 mg IVP Q6HR PRN PRN Reason: Nausea / Vomiting Last Admin: 02/12/20 08:17 Dose: 4 mg Documented by: Ondansetron HCl (Zofran Inj) 4 mg IVP Q6HR PRN PRN Reason: Nausea / Vomiting Oxycodone HCl (Roxicodone) 5 mg PO Q4HR PRN PRN Reason: PAIN Oxycodone HCl (Roxicodone) 5 mg PO Q4HR PRN PRN Reason: PAIN Polyethylene Glycol (Miralax) 17 gm PO DAILY [facility] Last Admin: 02/12/20 08:18 Dose: 17 gm Documented by: Prednisone (Deltasone) 1 mg PO DAILYWM [facility] Last Admin: 02/12/20 08:17 Dose: Not Given Documented by: Prochlorperazine Edisylate (Compazine Inj) 10 mg IVP Q6HR PRN PRN Reason: Nausea / Vomiting Prochlorperazine Edisylate (Compazine Inj) 10 mg IVP Q6HR PRN PRN Reason: Nausea / Vomiting Sodium Chloride (Normal Saline Flush 0.9%) 10 ml IVP PRN PRN PRN Reason: NEEDED PER PROVIDER ORDERS Last Admin: 02/10/20 19:38 Dose: 10 ml Documented by: Sodium Chloride (Normal Saline Flush 0.9%) 10 ml IVP 0100,0900,1700 [facility] Last Admin: 02/12/20 08:21 Dose: 10 ml Documented by: Sodium Chloride (Normal Saline Flush 0.9%) 10 ml IVP 0100,0900,1700 [facility] Last Admin: 02/12/20 08:25 Dose: Not Given Documented by: Sodium Chloride (Normal Saline Flush 0.9%) 10 ml IVP PRN PRN PRN Reason: NEEDED PER PROVIDER ORDERS Trazodone HCl (Desyrel) 50 mg PO QPM PRN PRN Reason: Insomnia Last Admin: 02/11/20 01:48 Dose: 50 mg Documented by: Warfarin Sodium (Coumadin) 5 mg PO TUFR@2100 [facility] Warfarin Sodium (Coumadin) 3 mg PO SUMOWETHSA@2100 [facility] Warfarin Sodium (Coumadin) 1 mg PO TUFR@2100 [facility] Budesonide [Budesonide EC] 3 mg PO DAILY 10/12/14 Levothyroxine Sodium [Synthroid] 125 mcg PO DAILY 10/12/14 Omeprazole [PriLOSEC] 20 mg PO DAILY 10/12/14 Simvastatin 5 mg PO QPM 10/12/14 Warfarin Sodium [Coumadin] 6 mg PO TUFR@209910/12/14 Garlic 1 tab PO DAILY 04/27/19 Lactobacillus Acidophilus [Probiotic Acidophilus] 1 tab PO DAILY 04/27/19 [place]-3/Dha/Epa/Fish Oil [Fish Oil 1,000 mg Softgel] 3,000 mg PO DAILY 04/27/19 ALPRAZolam [Alprazolam] 0.2 mg PO TID PRN 04/28/19 Losartan Potassium 25 mg PO DAILY 04/28/19 Metoprolol Succinate [Toprol Xl] 25 mg PO DAILY 04/28/19 Warfarin Sodium 3 mg PO SUMOWETHSA@209904/28/19 predniSONE [Deltasone] 2 mg PO DAILYWM 04/28/19 ursodioL [Jordon 250] 250 mg PO TID 04/28/19 Prednisone 1 mg PO DAILY 01/07/20
--- NOTE | 2020-02-12 09:43 | PHARMACY PROGRESS NOTE ---
- Best Possible Medication History Admit Date and Time: 02/10/20 1834 Processed by: Nursing As the person ultimately responsible for medication therapy, providers are able to order a medication from an existing home medication list in [facility] via the "Reconcile Routine" prior to Confirmation of that medication by it technical support specialist. Such practice is discouraged except when the physician, in their clinical judgment, deems that a medical need exists for a medication without regard to previous use.
--- NOTE | 2020-02-12 10:19 | XRAY Report ---
PROCEDURE: Hip w/Pelvis 1V LT INDICATIONS: post op TECHNIQUE: AP pelvis with lateral view(s) of the left hip(s). COMPARISON: 02/10/2020 FINDINGS: Bones: [Left hip arthroplasty components are in expected position without dislocation or unexpected f racture. Incidental note made of intact right hip arthroplasty.. Pelvic ring appears intact. No vinicius picious bony lesions. Soft tissues: The visualized bowel gas pattern is normal. Expected surgical changes in the left hip soft tissues there are dystrophic calcifications adjacent to the right hip and proximal femur. No braswell spicious soft tissue calcifications. IMPRESSION: 1. Expected appearance post left hip arthroplasty. Reviewed by: Debra Leo MD on 02/12/2020 10:18 AM PDT Approved by: Debra Leo MD on 02/12/2020 10:18 AM PDT Station ID: [id number]
--- NOTE | 2020-02-12 11:22 | PROVIDER PROGRESS NOTE ---
Subjective - General Admit Date: 02/10/20 Procedure Date: 02/11/20 Post Op Days: 1 Procedure Performed: Hemiarthroplasty left hip - Review of Systems Wound/Incisions: positive: Healing well, Dressing dry and intact General: positive: No symptoms Cardiovascular: positive: Lightheadedness Musculoskeletal: negative: Other (Pains under very good control and much improved since surgery to her left hip yesterday.) Psychiatric: positive: No symptoms Objective - Patient Data Vital Signs: Vital Signs x48h Temp Pulse Resp BP BP Pulse Ox 02/12/20 08:00 37 C 80 18 137/53 H 97 02/12/20 04:26 36.9 C 92 18 134/58 H 93 Weight: Weight 02/10/20 02/11/20 02/12/20 23:59 23:59 23:59 Weight (kg) 80 kg 80 kg Intake & Output: Intake and Output Totals x24h 02/10/20 02/11/20 02/12/20 23:59 23:59 23:59 Intake Total 150 2506.666 1133.334 Output Total 500 150 Balance 150 2006.666 983.334 - Lab Results Lab Results: 02/12/20 05:20 02/12/20 05:20 Other Lab Results: Lab Results x24hrs 02/12/20 02/12/20 02/12/20 Range/Units 05:20 05:20 05:20 WBC (4.8-10.8) x10^3/uL RBC (4.20-5.40) 10^6/uL Hgb (12.0-16.0) g/dL Hct (37.0-47.0) % MCV (81.0-99.0) fL MCH (27.0-31.0) pg MCHC (32.0-36.0) g/dL RDW (12.0-15.0) % Plt Count (130-450) 10^3/uL MPV (7.9-10.8) fL Reticulocyte % (Auto) (0.5-2.3) % Neut # (Auto) (1.5-6.6) 10^3/uL Lymph # (Auto) (1.5-3.5) 10^3/uL [place] # (Auto) (0.0-1.0) 10^3/uL Eos # (Auto) (0.0-0.7) 10^3/uL Baso # (Auto) (0.0-0.1) 10^3/uL Absolute Nucleated RBC x10^3/uL Nucleated RBC % /100WBC Absolute Retic (0.020-0.110) 10^6/uL PT (9.9-12.6) secs INR (0.8-1.2) Whole Blood INR (0.8-1.2) Sodium (135-145) mmol/L Potassium (3.5-5.0) mmol/L Chloride (101-111) mmol/L Carbon Dioxide (21-32) mmol/L Anion Gap (6-13) BUN (6-20) mg/dL Creatinine (0.4-1.0) mg/dL Estimated GFR (MDRD) (>89) Glucose (70-100) mg/dL Calcium (8.5-10.3) mg/dL Iron 28 (28-170) ug/dL TIBC 248 L (250-450) ug/dL % Saturation 11 L (20-50) % Transferrin 177 L (192-382) mg/dL Ferritin 122.6 (11.0-306.8) ng/mL Lactate Dehydrogenase 186 (91-225) IU/L Vitamin B12 1353 H (180-914) pg/mL Free T4 (0.58-1.64) ng/dL Blood Type Antibody Screen 02/12/20 02/12/20 02/12/20 Range/Units 05:20 05:20 05:20 WBC (4.8-10.8) x10^3/uL RBC 3.16 L (4.20-5.40) 10^6/uL Hgb (12.0-16.0) g/dL Hct (37.0-47.0) % MCV (81.0-99.0) fL MCH (27.0-31.0) pg MCHC (32.0-36.0) g/dL RDW (12.0-15.0) % Plt Count (130-450) 10^3/uL MPV (7.9-10.8) fL Reticulocyte % (Auto) 1.39 (0.5-2.3) % Neut # (Auto) (1.5-6.6) 10^3/uL Lymph # (Auto) (1.5-3.5) 10^3/uL [place] # (Auto) (0.0-1.0) 10^3/uL Eos # (Auto) (0.0-0.7) 10^3/uL Baso # (Auto) (0.0-0.1) 10^3/uL Absolute Nucleated RBC x10^3/uL Nucleated RBC % /100WBC Absolute Retic 0.044 (0.020-0.110) 10^6/uL PT 16.7 H (9.9-12.6) secs INR 1.5 H (0.8-1.2) Whole Blood INR (0.8-1.2) Sodium (135-145) mmol/L Potassium (3.5-5.0) mmol/L Chloride (101-111) mmol/L Carbon Dioxide (21-32) mmol/L Anion Gap (6-13) BUN (6-20) mg/dL Creatinine (0.4-1.0) mg/dL Estimated GFR (MDRD) (>89) Glucose (70-100) mg/dL Calcium (8.5-10.3) mg/dL Iron (28-170) ug/dL TIBC (250-450) ug/dL % Saturation (20-50) % Transferrin (192-382) mg/dL Ferritin (11.0-306.8) ng/mL Lactate Dehydrogenase (91-225) IU/L Vitamin B12 (180-914) pg/mL Free T4 2.04 H (0.58-1.64) ng/dL Blood Type Antibody Screen 02/12/20 02/12/20 02/11/20 Range/Units 05:20 05:20 23:45 WBC 17.2 H (4.8-10.8) x10^3/uL RBC 3.24 L (4.20-5.40) 10^6/uL Hgb 9.7 L 10.3 L (12.0-16.0) g/dL Hct 30.4 L 32.0 L (37.0-47.0) % MCV 93.8 (81.0-99.0) fL MCH 29.9 (27.0-31.0) pg MCHC 31.9 L (32.0-36.0) g/dL RDW 14.5 (12.0-15.0) % Plt Count 338 (130-450) 10^3/uL MPV 10.6 (7.9-10.8) fL Reticulocyte % (Auto) (0.5-2.3) % Neut # (Auto) 15.3 H (1.5-6.6) 10^3/uL Lymph # (Auto) 0.8 L (1.5-3.5) 10^3/uL [place] # (Auto) 0.9 (0.0-1.0) 10^3/uL Eos # (Auto) 0.0 (0.0-0.7) 10^3/uL Baso # (Auto) 0.0 (0.0-0.1) 10^3/uL Absolute Nucleated RBC 0.00 x10^3/uL Nucleated RBC % 0.0 /100WBC Absolute Retic (0.020-0.110) 10^6/uL PT (9.9-12.6) secs INR (0.8-1.2) Whole Blood INR (0.8-1.2) Sodium 134 L (135-145) mmol/L Potassium 4.2 (3.5-5.0) mmol/L Chloride 103 (101-111) mmol/L Carbon Dioxide 21 (21-32) mmol/L Anion Gap 10.0 (6-13) BUN 18 (6-20) mg/dL Creatinine 0.7 (0.4-1.0) mg/dL Estimated GFR (MDRD) 80 L (>89) Glucose 134 H (70-100) mg/dL Calcium 8.4 L (8.5-10.3) mg/dL Iron (28-170) ug/dL TIBC (250-450) ug/dL % Saturation (20-50) % Transferrin (192-382) mg/dL Ferritin (11.0-306.8) ng/mL Lactate Dehydrogenase (91-225) IU/L Vitamin B12 (180-914) pg/mL Free T4 (0.58-1.64) ng/dL Blood Type Antibody Screen 02/11/20 02/10/20 Range/Units 12:43 18:47 WBC (4.8-10.8) x10^3/uL RBC (4.20-5.40) 10^6/uL Hgb (12.0-16.0) g/dL Hct (37.0-47.0) % MCV (81.0-99.0) fL MCH (27.0-31.0) pg MCHC (32.0-36.0) g/dL RDW (12.0-15.0) % Plt Count (130-450) 10^3/uL MPV (7.9-10.8) fL Reticulocyte % (Auto) (0.5-2.3) % Neut # (Auto) (1.5-6.6) 10^3/uL Lymph # (Auto) (1.5-3.5) 10^3/uL Mccurtain # (Auto) (0.0-1.0) 10^3/uL Eos # (Auto) (0.0-0.7) 10^3/uL Baso # (Auto) (0.0-0.1) 10^3/uL Absolute Nucleated RBC x10^3/uL Nucleated RBC % /100WBC Absolute Retic (0.020-0.110) 10^6/uL PT (9.9-12.6) secs INR (0.8-1.2) Whole Blood INR 1.7 H (0.8-1.2) Sodium (135-145) mmol/L Potassium (3.5-5.0) mmol/L Chloride (101-111) mmol/L Carbon Dioxide (21-32) mmol/L Anion Gap (6-13) BUN (6-20) mg/dL Creatinine (0.4-1.0) mg/dL Estimated GFR (MDRD) (>89) Glucose (70-100) mg/dL Calcium (8.5-10.3) mg/dL Iron (28-170) ug/dL TIBC (250-450) ug/dL % Saturation (20-50) % Transferrin (192-382) mg/dL Ferritin (11.0-306.8) ng/mL Lactate Dehydrogenase (91-225) IU/L Vitamin B12 (180-914) pg/mL Free T4 (0.58-1.64) ng/dL Blood Type A POSITIVE Antibody Screen NEGATIVE - Current Medications Current Medications: Current Medications Generic Name Dose Route Start Last Admin Trade Name Freq PRN Reason Stop Dose Admin Alprazolam 0.25 mg 02/11/20 08:46 02/11/20 09:21 Xanax PO 0.25 mg TID PRN Administration anxiety/insomnia Sodium Chloride 1,000 mls @ 100 mls/hr 02/10/20 20:00 02/12/20 06:02 Normal Saline 0.9% IV 100 mls/hr .Q10H [facility] Administration Metoprolol Succinate 25 mg 02/11/20 09:00 02/12/20 08:17 Toprol Xl PO 25 mg DAILY [facility]IL[facility] Administration Morphine Sulfate 2 mg 02/10/20 19:31 02/11/20 11:26 Morphine (Carpuject) IVP 2 mg Q2HR PRN Administration PAIN Polyethylene Glycol 17 gm 02/11/20 09:00 02/12/20 08:18 Miralax PO 17 gm DAILY [facility] Administration Prednisone 1 mg 02/12/20 08:00 02/12/20 08:17 Deltasone PO Not Given DAILYWM [facility] Prochlorperazine Edisylate 10 mg 02/11/20 18:10 02/12/20 11:00 Compazine Inj IVP 10 mg Q6HR PRN Administration Nausea / Vomiting Sodium Chloride 10 ml 02/12/20 01:00 02/12/20 08:25 Normal Saline Flush 0.9% IVP Not Given 0100,0900,1700 [facility] Trazodone HCl 50 mg 02/11/20 00:28 02/11/20 01:48 Desyrel PO 50 mg QPM PRN Administration Insomnia - Physical Exam Wound/Incisions: positive: Healing well, Dressing dry and intact General Appearance: positive: No acute distress Extremities: negative: Other (No clinical deformity left leg. Minimal pain with movement left hip. Neurovascular intact left leg.) Neurologic/Psychiatric: positive: Oriented x3, Motor nml, Sensation nml Impression/Plan - Problem List Problem List: Status post left hip hemiarthroplasty Ambulation with walker, weightbearing as tolerated. Physical and occupational therapy has been started. Coumadin being resumed. She is doing quite well for first postop day.
[2020-02-12] MEDS: FERROUS SULFATE 325 MG TABLET PO SCH (12:04)
[2020-02-12] MEDS: ACETAMINOPHEN 325 MG TABLET PO PRN ×2 (12:04→18:24)
[2020-02-12] MEDS: ALPRAZolam 0.25 MG TABLET PO PRN ×2 (14:09→22:00)
[2020-02-12 20:08] LABS: HGB - HEMOGLOBIN 9.3 g/dL (12.0-16.0)
[2020-02-12] MEDS: WARFARIN 1 MG TABLET PO SCH (21:59)
[2020-02-12] MEDS: CALCIUM CARBONATE CHEW 500 MG TABLET PO SCH (22:00)
[2020-02-12] MEDS: WARFARIN 5 MG TABLET PO SCH (22:00)
[2020-02-13] MEDS: SODIUM CHLORIDE FLUSH 0.9% 10 ML SYRINGE IVP SCH ×3 (00:36→17:44)
[2020-02-13] MEDS: oxyCODONE 5 MG TABLET PO PRN ×4 (00:44→18:44)
[2020-02-13] MEDS: LEVOTHYROXINE 100 MCG TABLET PO SCH (06:16)
[2020-02-13 06:30] LABS: BASOPHILS # (AUTO) 0.1 10^3/uL (0.0-0.1); BASOPHILS % (AUTO) 0.5 %; EOSINOPHILS # (AUTO) 0.6 10^3/uL (0.0-0.7); EOSINOPHILS % (AUTO) 3.4 %; HGB - HEMOGLOBIN 9.1 g/dL (12.0-16.0); LYMPHOCYTES # (AUTO) 1.6 10^3/uL (1.5-3.5); MEAN CORPUSCULAR HEMOGLOBIN 29.5 pg (27.0-31.0); MEAN CORPUSCULAR HGB CONC 31.5 g/dL (32.0-36.0); MEAN CORPUSCULAR VOLUME 93.8 fL (81.0-99.0); MEAN PLATELET VOLUME 11.1 fL (7.9-10.8); MONOCYTES # (AUTO) 1.7 10^3/uL (0.0-1.0); MONOCYTES % (AUTO) 10.4 %; NEUTROPHILS % (AUTO) 74.5 %; PLT - PLATELET COUNT 337 10^3/uL (130-450); RED BLOOD COUNT 3.08 10^6/uL (4.20-5.40); RED CELL DISTRIBUTION WIDTH 14.6 % (12.0-15.0); WHITE BLOOD COUNT 16.1 x10^3/uL (4.8-10.8)
[2020-02-13 06:36] LABS: INR 1.3 (0.8-1.2); PT - PROTHROMBIN TIME 14.5 secs (9.9-12.6)
[2020-02-13 06:43] LABS: CALCIUM 8.7 mg/dL (8.5-10.3); CREATININE 0.6 mg/dL (0.4-1.0)
[2020-02-13 07:38] LABS: DIFFERENTIAL COMMENT Y; PLATELET ESTIMATE, MANUAL NORMAL (130-450,000) (NORMAL); PLATELET MORPHOLOGY NORMAL APPEARANCE (NORMAL); RBC MORPHOLOGY (MULTIPLE) NORMAL APPEARANCE (NORMAL)
[2020-02-13] MEDS ORDERED: polyethylene glycoL 3350 17 GM PACKET PO SCH (09:00)
[2020-02-13] MEDS: CHOLECALCIFEROL 400 UNIT TABLET PO SCH (10:17)
[2020-02-13] MEDS: METOPROLOL SUCCINATE 25 MG TABLET PO SCH (10:21)
[2020-02-13] MEDS: FERROUS SULFATE 325 MG TABLET PO SCH (10:21)
[2020-02-13] MEDS: predniSONE 1 MG TABLET PO SCH (10:22)
[2020-02-13] MEDS: polyethylene glycoL 3350 17 GM PACKET PO SCH (10:23)
[2020-02-13] MEDS: ACETAMINOPHEN 325 MG TABLET PO PRN ×3 (10:23→22:03)
[2020-02-13] MEDS: CALCIUM CARBONATE CHEW 500 MG TABLET PO SCH ×2 (10:24→20:37)
[2020-02-13] MEDS ORDERED: TRIAMCINOLONE IM ONE (10:49)
[2020-02-13] MEDS ORDERED: BUPIVACAINE 0.5%-EPI 1:200000 PF 10 ML VIAL SUBQ ONE (10:50)
[2020-02-13] MEDS ORDERED: BUPIVACAINE 0.5% PF 30 ML VIAL SUBQ ONE (11:00)
--- NOTE | 2020-02-13 11:17 | CONSULTATION NOTE ---
DATE OF SERVICE: 02/13/2020 Physician: Anthony Moreno MD REFERRING PHYSICIAN: Dr. Tolentino of the Internal Medicine Service. CHIEF COMPLAINT: "My right knee has been buckling." HISTORY OF PRESENT ILLNESS: Patient is an 84-year-old female who was recently admitted to the hospital with a left subcapital hip fracture. Dr. Lopes performed a left cementless bipolar hip hemiarthroplasty several days ago. I have been asked to evaluate patient for contralateral right leg problem. Speaking with patient, she has had about 2 buckling episodes of this knee for the past month. She denies any preceding trauma such as a twisting injury to her knee, specific locking to her knee or any other problems with the joint. She states that these buckling episodes occurred irregularly and without any preceding conditions or warning. Again, about 2 episodes have been noted. She denies any associated pain or any other symptomatology. Speaking with her therapist here who has been helping her post-hip surgery, she witnessed her knee giving out on her in therapy yesterday. There has been no real swelling to the knee or any other associated problems. PHYSICAL EXAMINATION: Today was limited to the patient's right leg and knee. Patient's right knee shows no knee effusion, soft tissue swelling, erythema, or warmth noted. She has maximal tenderness in the area of her pes anserinus portion of the knee. To a much lesser degree, she has some diffuse medial joint line tenderness as well. There is no erythema in this region. Stressing the ligaments of the knee, specifically the medial collateral ligament, this was noted to be stable and did not provoke any additional pain with stressing of the knee. Knee range of motion showed a few degrees, lacking full extension and flexion to about 100 degrees without any discomfort. Negative Aba sign noted. Neurovascular to be intact distally. ASSESSMENT 1. Probably right knee has anserinus bursitis. 2. Status post left cementless bipolar hip hemiarthroplasty. PLAN: I have offered the patient a steroid injection to her symptomatic area of the right knee. She has had elevated liver enzymes and did not want to begin on any oral antiinflammatory medications at this point. This will be done after her current physical therapy session has been completed. TD: 02/13/2020 10:58 DOMINGUEZ
--- NOTE | 2020-02-13 11:37 | PROVIDER PROGRESS NOTE ---
Assessment/Plan - Problem List (1) Closed left hip fracture Qualifiers: Encounter type: initial encounter Qualified Code(s): S72.002A - Fracture of unspecified part of neck of left femur, initial encounter for closed fracture Assessment/Plan: POD #2 Continue PT/OT, Pain control Continue followup with orthopedics care pt's INR was 1.5 yesterday and Coumadin reumed for Afib and also as DVT Prophylaxis. Disposition to SNF for PT rehab vs home with Home Health PT was discussed with patient by Physical Therapist, and tacos has decided to go to SNF for rehab. She may be medically cleared for discharge tomorrow. (2) Bursitis of right knee Assessment/Plan: Ortho consult for evaluation of R knee pain and buckling causing falls, was requested. Dr Moreno, the Orthopedist saw her today and felt she has R knee bursistis and will be doing a steroid injection. No knee XRays were needed, per Dr Moreno. (3) Postoperative anemia Assessment/Plan: Hemoglobin was 13.3 at admission, then 9.7 on POD #1 yesterday, and yesterday afternoon, Hgb was 9.3. Today Hgb is 9.1. Iron studies show patient iron is 28, which is at the borderline. She was started on oral iron pill yesterday. Follow CBC daily. Transfuse if < 7 or if < 8 wirh symptoms (like SOB or orthostasis). (4) History of atrial fibrillation Assessment/Plan: Heart rate is controlled on current meds and management. INR was 1.5 post-op and resumed patient's home Coumadin yesterday, no loading dose, want INR to climb to therapeutic slowly. Continue daily PT/INR check. (5) Hypertension Qualifiers: Hypertension type: essential hypertension Qualified Code(s): I10 - Essential (primary) hypertension Assessment/Plan: Continue metoprolol 25 mg p.o. daily (6) Hypothyroidism Assessment/Plan: TSH was low, free T4 is high, We reduced Synthroid to 100 mcg daily, She will need Follow-up with her PCP to continue management [facility] (7) Hyperlipidemia Assessment/Plan: Continue her home med for this (8) Anxiety Assessment/Plan: Continue alprazolam 0.25 mg p.o. 3 times daily as needed (9) Autoimmune cholangitis Assessment/Plan: Pt takes steroids at home, they were resumed. Steroid use could explained her elevated WBC - Current Meds Current Meds: Current Medications Generic Name Dose Route Start Last Admin Trade Name Freq PRN Reason Stop Dose Admin Acetaminophen 650 - 975 mg 02/11/20 18:10 02/13/20 10:23 Tylenol PO 650 mg Q4HR PRN Administration PAIN Alprazolam 0.25 mg 02/11/20 08:46 02/12/20 22:00 Xanax PO 0.25 mg TID PRN Administration anxiety/insomnia Calcium Carbonate/Glycine 500 mg 02/12/20 21:00 02/13/20 10:24 Tums PO Not Given BID WILMAR Cholecalciferol 800 unit 02/13/20 09:00 02/13/20 10:17 Vitamin D3 PO 800 unit DAILY WILMAR Administration Ferrous Sulfate 325 mg 02/12/20 10:00 02/13/20 10:21 Feosol PO 325 mg DAILYWM WILMAR Administration Levothyroxine Sodium 100 mcg 02/13/20 07:00 02/13/20 06:16 Synthroid PO 100 mcg QDAC WILMAR Administration Metoprolol Succinate 25 mg 02/11/20 09:00 02/13/20 10:21 Toprol Xl PO 25 mg DAILY WILMAR Administration Morphine Sulfate 2 mg 02/10/20 19:31 02/11/20 11:26 Morphine (Carpuject) IVP 2 mg Q2HR PRN Administration PAIN Oxycodone HCl 5 mg 02/11/20 18:10 02/13/20 10:28 Roxicodone PO 5 mg Q4HR PRN Administration PAIN Polyethylene Glycol 17 gm 02/11/20 09:00 02/13/20 10:23 Miralax PO 17 gm DAILY WILMAR Administration Prednisone 1 mg 02/12/20 08:00 02/13/20 10:22 Deltasone PO 1 mg DAILYWM WILMAR Administration Prochlorperazine Edisylate 10 mg 02/11/20 18:10 02/12/20 11:00 Compazine Inj IVP 10 mg Q6HR PRN Administration Nausea / Vomiting Sodium Chloride 10 ml 02/12/20 01:00 02/13/20 10:24 Normal Saline Flush 0.9% IVP 10 ml 0100,0900,1700 WILMAR Administration Trazodone HCl 50 mg 02/11/20 00:28 02/11/20 01:48 Desyrel PO 50 mg QPM PRN Administration Insomnia Warfarin Sodium 5 mg 02/12/20 21:00 02/12/20 22:00 Coumadin PO 5 mg TUFR@2100 WILMAR Administration Warfarin Sodium 1 mg 02/12/20 21:00 02/12/20 21:59 Coumadin PO 1 mg TUFR@2100 WILMAR Administration - Lab Result Fish Bone Diagrams: 02/13/20 06:00 02/13/20 06:00 - Additional Planning My Orders: My Active Orders 02/13/20 Consult [Orthopedics Consult] [CONS] Routine Subjective - Subjective Patient Reports: Other (R knee pain and she told the PT yesterday that it "buc kles alot" and she "falls alot at home") Objective Vital Signs: Vital Signs - 24 hr 02/12/20 02/12/20 02/12/20 12:00 15:40 21:03 Temperature 36.3 C L 36.3 C L 37.0 C Heart Rate [ 84 84 81 Brachial] Respiratory 16 18 18 Rate Blood Pressure 134/48 H 135/60 H [Left Brachial artery] Blood Pressure 131/57 H [Left Radial artery] O2 Saturation 96 94 94 02/13/20 02/13/20 02/13/20 00:40 04:04 08:00 Temperature 36.8 C 36.8 C 37 C Heart Rate [ 84 87 93 Brachial] Respiratory 18 16 18 Rate Blood Pressure 161/58 H 160/64 H [Left Brachial artery] Blood Pressure 150/73 H [Left Radial artery] O2 Saturation 94 94 97 Oxygen O2 Source Nasal cannula Oxygen Flow Rate 2 I&O (Last 24 Hrs): Intake and Output Totals x24h 02/11/20 02/12/20 02/13/20 23:59 23:59 23:59 Intake Total 2506.666 2433.334 120 Output Total 500 301 225 Balance 8935.666 2132.334 -105 General: Alert, Oriented x3 HEENT: Mucous membr. moist/pink Neck: Supple, No JVD Neuro: Alert, Non Focal Cardiovascular: No murmurs Respiratory: No respiratory distress Abdomen: Soft Extremities: Other (Large ecchymosis of left ankle, bandage of left hip, mildly swollen right knee without redness or warmth) - Results Results: Laboratory Results WBC 16.1 x10^3/uL (4.8-10.8) H 02/13/20 06:00 RBC 3.08 10^6/uL (4.20-5.40) L 02/13/20 06:00 Hgb 9.1 g/dL (12.0-16.0) L 02/13/20 06:00 Hct 28.9 % (37.0-47.0) L 02/13/20 06:00 MCV 93.8 fL (81.0-99.0) 02/13/20 06:00 MCH 29.5 pg (27.0-31.0) 02/13/20 06:00 MCHC 31.5 g/dL (32.0-36.0) L 02/13/20 06:00 RDW 14.6 % (12.0-15.0) 02/13/20 06:00 Plt Count 337 10^3/uL (130-450) 02/13/20 06:00 MPV 11.1 fL (7.9-10.8) H 02/13/20 06:00 Reticulocyte % (Auto) 1.39 % (0.5-2.3) 02/12/20 05:20 Neut # (Auto) 12.0 10^3/uL (1.5-6.6) H 02/13/20 06:00 Lymph # (Auto) 1.6 10^3/uL (1.5-3.5) 02/13/20 06:00 [place] # (Auto) 1.7 10^3/uL (0.0-1.0) H 02/13/20 06:00 Eos # (Auto) 0.6 10^3/uL (0.0-0.7) 02/13/20 06:00 Baso # (Auto) 0.1 10^3/uL (0.0-0.1) 02/13/20 06:00 Absolute Nucleated RBC 0.00 x10^3/uL 02/13/20 06:00 Band Neuts % (Manual) Not Reportable 02/13/20 06:00 Abnorm Lymph % (Manual) Not Reportable 02/13/20 06:00 Nucleated RBC % 0.0 /100WBC 02/13/20 06:00 Neutrophils # (Manual) Not Reportable 02/13/20 06:00 Lymphocytes # (Manual) Not Reportable 02/13/20 06:00 Monocytes # (Manual) Not Reportable 02/13/20 06:00 Eosinophils # (Manual) Not Reportable 02/13/20 06:00 Basophils # (Manual) Not Reportable 02/13/20 06:00 Differential Comment Y 02/13/20 06:00 WBC Morphology NORMAL APPEARANCE (NORMAL) 02/13/20 06:00 Platelet Estimate NORMAL (130-450,000) (NORMAL) 02/13/20 06:00 Platelet Morphology NORMAL APPEARANCE (NORMAL) 02/13/20 06:00 RBC Morph Micro Appear NORMAL APPEARANCE (NORMAL) 02/13/20 06:00 Absolute Retic 0.044 10^6/uL (0.020-0.110) 02/12/20 05:20 PT 14.5 secs (9.9-12.6) H 02/13/20 06:00 INR 1.3 (0.8-1.2) H 02/13/20 06:00 Whole Blood INR 1.7 (0.8-1.2) H 02/11/20 12:43 APTT 29.6 secs (24.9-33.3) 02/10/20 17:30 Sodium 137 mmol/L (135-145) 02/13/20 06:00 Potassium 3.8 mmol/L (3.5-5.0) 02/13/20 06:00 Chloride 105 mmol/L (101-111) 02/13/20 06:00 Carbon Dioxide 24 mmol/L (21-32) 02/13/20 06:00 Anion Gap 8.0 (6-13) 02/13/20 06:00 BUN 16 mg/dL (6-20) 02/13/20 06:00 Creatinine 0.6 mg/dL (0.4-1.0) 02/13/20 06:00 Estimated GFR (MDRD) 95 (>89) 02/13/20 06:00 Glucose 98 mg/dL (70-100) 02/13/20 06:00 Calcium 8.7 mg/dL (8.5-10.3) 02/13/20 06:00 Iron 28 ug/dL (28-170) 02/12/20 05:20 TIBC 248 ug/dL (250-450) L 02/12/20 05:20 % Saturation 11 % (20-50) L 02/12/20 05:20 Transferrin 177 mg/dL (192-382) L 02/12/20 05:20 Ferritin 122.6 ng/mL (11.0-306.8) 02/12/20 05:20 Total Bilirubin 0.5 mg/dL (0.2-1.0) 02/10/20 17:30 AST 49 IU/L (10-42) H 02/10/20 17:30 ALT 53 IU/L (10-60) 02/10/20 17:30 Alkaline Phosphatase 149 IU/L (42-121) H 02/10/20 17:30 Lactate Dehydrogenase 186 IU/L (91-225) 02/12/20 05:20 Troponin I High Sens 6.9 ng/L (2.3-14.8) 02/10/20 17:30 Total Protein 6.8 g/dL (6.7-8.2) 02/10/20 17:30 Albumin 3.6 g/dL (3.2-5.5) 02/10/20 17:30 Globulin 3.2 g/dL (2.1-4.2) 02/10/20 17:30 Albumin/Globulin Ratio 1.1 (1.0-2.2) 02/10/20 17:30 Lipase 53 U/L (22-51) H 02/10/20 17:30 Vitamin B12 1353 pg/mL (180-914) H 02/12/20 05:20 TSH 0.21 uIU/mL (0.34-5.60) L 02/11/20 05:45 Free T4 2.04 ng/dL (0.58-1.64) H 02/12/20 05:20 Urine Color DARK YELLOW 02/11/20 09:23 Urine Clarity CLEAR (CLEAR) 02/11/20 09:23 Urine pH 6.5 PH (5.0-7.5) 02/11/20 09:23 Ur Specific [place] 1.025 (1.002-1.030) 02/11/20 09:23 Urine Protein 100 mg/dL (NEGATIVE) H 02/11/20 09:23 Urine Glucose (UA) NEGATIVE mg/dL (NEGATIVE) 02/11/20 09:23 Urine Ketones NEGATIVE mg/dL (NEGATIVE) 02/11/20 09: Urine Occult Blood NEGATIVE (NEGATIVE) 02/11/20: Urine Nitrite NEGATIVE (NEGATIVE) 02/11/20 Urine Bilirubin NEGATIVE (NEGATIVE) 02/11/20 09: Urine Urobilinogen 0.2 (NORMAL) E.U./dL (NORMAL) 02/11/20 09: Ur Leukocyte Esterase NEGATIVE (NEGATIVE) 02/11/20 09: Urine RBC 0-5 /HPF (0-5) 02/11/20 09: Urine WBC 0-3 /HPF (0-5) 02/11/20 09: Ur Squamous Epith Cells RARE Squamous (<= Few) 02/11/20 09: Urine Bacteria Rare /HPF (None Seen) 02/11/20 09: Blood Type A POSITIVE 02/10/20 18:47 Antibody Screen NEGATIVE 02/10/20 18:47
[2020-02-13] MEDS ORDERED: TRIAMCINOLONE 40 MG/ML VIAL IM ONE (12:00)
[2020-02-13] MEDS: ALPRAZolam 0.25 MG TABLET PO PRN (17:42)
[2020-02-13] MEDS: WARFARIN 1 MG TABLET PO SCH (20:37)
[2020-02-14] MEDS: SODIUM CHLORIDE FLUSH 0.9% 10 ML SYRINGE IVP SCH ×4 (01:45→23:44)
[2020-02-14] MEDS: LEVOTHYROXINE 100 MCG TABLET PO SCH (06:00)
[2020-02-14] MEDS: ACETAMINOPHEN 325 MG TABLET PO PRN ×3 (06:00→23:44)
[2020-02-14 06:12] LABS: BASOPHILS % (AUTO) 0.8 %; EOSINOPHILS % (AUTO) 4.2 %; HGB - HEMOGLOBIN 9.2 g/dL (12.0-16.0); LYMPHOCYTES % (AUTO) 12.1 %; MEAN CORPUSCULAR HEMOGLOBIN 30.2 pg (27.0-31.0); MEAN CORPUSCULAR HGB CONC 32.6 g/dL (32.0-36.0); MEAN CORPUSCULAR VOLUME 92.5 fL (81.0-99.0); MONOCYTES % (AUTO) 10.3 %; NEUTROPHILS % (AUTO) 71.1 %; PLT - PLATELET COUNT 362 10^3/uL (130-450); RED BLOOD COUNT 3.05 10^6/uL (4.20-5.40); RED CELL DISTRIBUTION WIDTH 14.6 % (12.0-15.0); WHITE BLOOD COUNT 14.8 x10^3/uL (4.8-10.8)
[2020-02-14 06:24] LABS: ABNORMAL LYMPHS % (MANUAL) 0 %; BAND NEUTROPHILS % (MANUAL) 0 %
[2020-02-14 06:25] LABS: CALCIUM 8.7 mg/dL (8.5-10.3); CREATININE 0.6 mg/dL (0.4-1.0)
[2020-02-14 06:29] LABS: INR 1.7 (0.8-1.2); PT - PROTHROMBIN TIME 18.5 secs (9.9-12.6)
[2020-02-14 06:44] LABS: DIFFERENTIAL COMMENT MANUAL DIFFERENTIAL; EOSINOPHILS # (MANUAL) 0.4 10^3/uL (0-0.7); LYMPHOCYTES # (MANUAL) 2.2 10^3/uL (1.5-3.5); LYMPHOCYTES % (MANUAL) 15 %; PLATELET ESTIMATE, MANUAL NORMAL (130-450,000) (NORMAL); PLATELET MORPHOLOGY NORMAL APPEARANCE (NORMAL); RBC MORPHOLOGY (MULTIPLE) NORMAL APPEARANCE (NORMAL)
[2020-02-14] MEDS: METOPROLOL SUCCINATE 25 MG TABLET PO SCH (08:54)
[2020-02-14] MEDS: CHOLECALCIFEROL 400 UNIT TABLET PO SCH (08:54)
[2020-02-14] MEDS: CALCIUM CARBONATE CHEW 500 MG TABLET PO SCH ×2 (08:54→20:07)
[2020-02-14] MEDS: polyethylene glycoL 3350 17 GM PACKET PO SCH (08:54)
[2020-02-14] MEDS: FERROUS SULFATE 325 MG TABLET PO SCH (08:54)
[2020-02-14] MEDS: predniSONE 1 MG TABLET PO SCH (08:56)
--- NOTE | 2020-02-14 09:01 | PROVIDER PROGRESS NOTE ---
Subjective - Prog Note Date Prog Note Date: 02/14/20 Prog Note Time: 08:59 - Subjective Pt reports feeling: Improved (Much less pain in right knee and left hip today.) Objective - Vital Signs/Intake & Output Vital Signs: Vital Signs x48h Temp Pulse Resp BP BP Pulse Ox 02/14/20 07:42 36.4 C L 81 18 168/70 H 92 02/14/20 05:10 36.6 C 83 16 149/69 H 96 02/14/20 01:00 36.4 C L 87 16 157/71 H 93 Intake & Output: Intake & Output 02/11/20 02/12/20 02/13/20 02/14/20 23:59 23:59 23:59 23:59 Intake Total 2506.666 2433.334 1190 Output Total 500 301 225 600 Balance 2006.666 2132.334 966 -600 - Lab Results Fish Bones: 02/14/20 05:35 02/14/20 05:35 Other Labs: Lab Results x24hrs 02/14/20 02/14/20 02/14/20 Range/Units 05:35 05:35 05:35 WBC 14.8 H (4.8-10.8) x10^3/uL RBC 3.05 L (4.20-5.40) 10^6/uL Hgb 9.2 L (12.0-16.0) g/dL Hct 28.2 L (37.0-47.0) % MCV 92.5 (81.0-99.0) fL MCH 30.2 (27.0-31.0) pg MCHC 32.6 (32.0-36.0) g/dL RDW 14.6 (12.0-15.0) % Plt Count 362 (130-450) 10^3/uL MPV 11.0 H (7.9-10.8) fL Neut # (Auto) Not Reportable Lymph # (Auto) Not Reportable [place] # (Auto) Not Reportable Eos # (Auto) Not Reportable Baso # (Auto) Not Reportable Absolute Nucleated RBC Not Reportable Total Counted 100 Band Neuts % (Manual) 0 (0 - 10) % Abnorm Lymph % (Manual) 0 % Nucleated RBC % Not Reportable Neutrophils # (Manual) 11.1 H (1.5-6.6) 10^3/uL Lymphocytes # (Manual) 2.2 (1.5-3.5) 10^3/uL Monocytes # (Manual) 1.0 (0.0-1.0) 10^3/uL Eosinophils # (Manual) 0.4 (0-0.7) 10^3/uL Basophils # (Manual) 0.0 (0-0.1) 10^3/uL Differential Comment MANUAL DIFFERENTIAL WBC Morphology NORMAL APPEARANCE (NORMAL) Platelet Estimate NORMAL (130-450,000) (NORMAL) Platelet Morphology NORMAL APPEARANCE (NORMAL) RBC Morph Micro Appear NORMAL APPEARANCE (NORMAL) PT 18.5 H (9.9-12.6) secs INR 1.7 H (0.8-1.2) Sodium 134 L (135-145) mmol/L Potassium 4.0 (3.5-5.0) mmol/L Chloride 100 L (101-111) mmol/L Carbon Dioxide 26 (21-32) mmol/L Anion Gap 8.0 (6-13) BUN 13 (6-20) mg/dL Creatinine 0.6 (0.4-1.0) mg/dL Estimated GFR (MDRD) 95 (>89) Glucose 105 H (70-100) mg/dL Calcium 8.7 (8.5-10.3) mg/dL Coronavirus (PCR) 02/12/20 Range/Units 06:15 WBC (4.8-10.8) x10^3/uL RBC (4.20-5.40) 10^6/uL Hgb (12.0-16.0) g/dL Hct (37.0-47.0) % MCV (81.0-99.0) fL MCH (27.0-31.0) pg MCHC (32.0-36.0) g/dL RDW (12.0-15.0) % Plt Count (130-450) 10^3/uL MPV (7.9-10.8) fL Neut # (Auto) Lymph # (Auto) [place] # (Auto) Eos # (Auto) Baso # (Auto) Absolute Nucleated RBC Total Counted Band Neuts % (Manual) (0 - 10) % Abnorm Lymph % (Manual) % Nucleated RBC % Neutrophils # (Manual) (1.5-6.6) 10^3/uL Lymphocytes # (Manual) (1.5-3.5) 10^3/uL Monocytes # (Manual) (0.0-1.0) 10^3/uL Eosinophils # (Manual) (0-0.7) 10^3/uL Basophils # (Manual) (0-0.1) 10^3/uL Differential Comment WBC Morphology (NORMAL) Platelet Estimate (NORMAL) Platelet Morphology (NORMAL) RBC Morph Micro Appear (NORMAL) PT (9.9-12.6) secs INR (0.8-1.2) Sodium (135-145) mmol/L Potassium (3.5-5.0) mmol/L Chloride (101-111) mmol/L Carbon Dioxide (21-32) mmol/L Anion Gap (6-13) BUN (6-20) mg/dL Creatinine (0.4-1.0) mg/dL Estimated GFR (MDRD) (>89) Glucose (70-100) mg/dL Calcium (8.5-10.3) mg/dL Coronavirus (PCR) NEGATIVE - Other Results/Comments Other Results/Comments: Right knee: Non tender over pes anserina. Good knee ROM> No pain with valgus stress of knee; no instability. Assessment/Plan - Problem List (1) Bursitis of right knee Impression: Improved PLAN: Mobilize as tolerated. Qualifiers: Knee bursitis location: pes anserinus bursitis Qualified Code(s): M70.51 - Other bursitis of knee, right knee
--- NOTE | 2020-02-14 11:40 | Discharge Plan ---
"Discharge Plan for SNF / [facility] - Discharge Plan And Transition Orders Problem Reviewed?: Yes Disposition: 03 SNF DC/Xfer Condition: Stable Allergies and Adverse Reactions: Allergies Allergy/AdvReac Type Severity Reaction Status Date / Time sertraline Allergy Unknown Verified 04/28/19 15:58 Sulfa (Sulfonamide Allergy Edema Verified 04/27/19 06:43 Antibiotics) Health Concerns: You were admitted after a fall and fracture and required orthopedic surgery to correct it. A different Orthopedic surgeon also did an injection into your right knee for bursitis. [facility] rehab. You may resume all your usual medications including the Coumadin. Plan of Treatment: As above. Care Goals: Improvement in symptoms and stabilization are the goals. Assessment: Patient understands and is agreeable with the plan. - SNF / [facility] Transition Orders Admit to (Facility): [facility] Discharge Diagnosis: (1) Closed left hip fracture (2) Bursitis of right knee (3) Postoperative anemia (4) History of atrial fibrillation (5) Hypertension (6) Hypothyroidism (7) Hyperlipidemia (8) Anxiety (9) Autoimmune cholangitis (10) Code status: Full Code Medicare Certification Statement: I certify that [facility] care is medically necessary on a continuing basis for any of the conditions for which she/he is receiving care during hospitalization. Notify PCP of admission and forward orders to primary provider for signature. Weight on admission and: Weekly Call PCP immediately if weight increases by: 8 kg Other Notification Orders: Call PCP immediately if patient develops dyspnea, chest pain/tightness or edema. House Bowel Program: Yes Additional Bowel Program Orders: If no BM after 2 days, nurse may give M.O.M. 30ml PO PRN and/or ducolax Supp 1 CO and/or SHANTEL 250mg P.O., and/or senna 1-2 tabs PO. On day 3 nurse may give repeat above order until residents constipation is resolved. Annual Influenza Vaccine (between Dec 21 and July 20): Yes Two-step PPD per [facility] [phone] or approved exception documents: Yes Treatments & Other Orders: Daily PT and OT Lab Tests or X-ray Orders: Daily INR for 4 days, Goal INR is 2.0-3.0 Medication Orders: PLEASE REFER TO THE DISCHARGE MEDICATION LIST. Insulin Orders?: No - Medications New Prescriptions: oxyCODONE [Roxicodone] 5 mg PO Q4HR PRN #20 tablet PRN Reason: Pain Ferrous Sulfate [Feosol] 325 mg PO DAILYWM #30 tablet polyethylene glycoL 3350 [Miralax] 17 gm PO DAILY #14 packet Levothyroxine [Synthroid] 100 mcg PO QDAC #30 tablet Calcium Carbonate [Tums (Calcium Carbonate 500mg)] 500 mg PO BID #60 tablet Cholecalciferol [Vitamin D3] 800 unit PO DAILY #60 tablet - Diet Type: Geriatric Texture: Regular Liquids: Thin May have monthly special meal: Yes - Therapies | Activity Therapy: Evaluation | Treat if indicated: PT, OT Rehabilitation Potential: Maximize functional status Activity: Activity as Tolerated Weight Bearing: Full Weight Assistance Devices: Walker Follow Up: See your PCP in follow-up after discharge from SNF."
--- NOTE | 2020-02-14 12:59 | PROVIDER PROGRESS NOTE ---
Assessment/Plan - Problem List (1) Orthostatic hypotension Assessment/Plan: This patient was seen by PT for her daily exercise for the hip as well as evaluation of the right knee after injection, to see if she needs an immobilizer. When she was sitting the blood pressure was 160, upon standing the blood pressure dropped to 130 and she was very dizzy. Physical therapy put her in bed and did not perform exercise therefore. She is not ready for discharge because of significant orthostasis. Will give a 500 cc saline bolus and adjust her meds that could be causing this. She cannot be D[facility] today, possible discharge tomorrow to SNF for PT rehab. (2) Closed left hip fracture Qualifiers: Encounter type: subsequent encounter (3) Bursitis of right knee Qualifiers: Knee bursitis location: pes anserinus bursitis Qualified Code(s): M70.51 - Other bursitis of knee, right knee Assessment/Plan: Dr. Moreno saw this patient today for follow-up after he performed injection of the right knee yesterday. No XRays were needed, per Dr Moreno, yesterday. She has significantly less pain and he recommended trying not to use an immobilizer but to have her ambulate. (4) Postoperative anemia Assessment/Plan: Hemoglobin was 13.3 at admission, then 9.7-9 Iron studies show patient iron is 28, which is at the borderline. She was started on oral iron pill yesterday. Follow CBC daily. Transfuse if < 7 or if < 8 wirh symptoms (like SOB or or thostasis). (5) History of atrial fibrillation Assessment/Plan: Heart rate is controlled on current management. INR was 1.5 post-op and we resumed patient's home Coumadin with no loading dose, want INR to climb to therapeutic slowly. Continue daily PT/INR check. (6) Hypertension Qualifiers: Hypertension type: essential hypertension Qualified Code(s): I10 - Essential (primary) hypertension Assessment/Plan: Continue metoprolol 25 mg p.o. daily (7) Hypothyroidism Assessment/Plan: TSH was low, free T4 is high, We reduced Synthroid to 100 mcg daily, She will need Follow-up with her PCP to continue management afer [facility] (8) Hyperlipidemia Assessment/Plan: Continue her home med for this (9) Anxiety Assessment/Plan: Continue alprazolam 0.25 mg p.o. 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 Steroid use could explained her elevated WBC - Current Meds Current Meds: Current Medications Generic Name Dose Route Start Last Admin Trade Name Freq PRN Reason Stop Dose Admin Acetaminophen 650 - 975 mg 02/11/20 18:10 02/14/20 12:51 Tylenol PO 650 mg Q4HR PRN Administration PAIN Alprazolam 0.25 mg 02/11/20 08:46 02/13/20 17:42 Xanax PO 0.25 mg TID PRN Administration anxiety/insomnia Calcium Carbonate/Glycine 500 mg 02/12/20 21:00 02/14/20 08:54 Tums PO 500 mg BID WILMAR Administration Cholecalciferol 800 unit 02/13/20 09:00 02/14/20 08:54 Vitamin D3 PO 800 unit DAILY WILMAR Administration Ferrous Sulfate 325 mg 02/12/20 10:00 02/14/20 08:54 Feosol PO 325 mg DAILYWM WILMAR Administration Levothyroxine Sodium 100 mcg 02/13/20 07:00 02/14/20 06:00 Synthroid PO 100 mcg QDAC WILMAR Administration Metoprolol Succinate 25 mg 02/11/20 09:00 02/14/20 08:54 Toprol Xl PO 25 mg DAILY WILMAR Administration Morphine Sulfate 2 mg 02/10/20 19:31 02/11/20 11:26 Morphine (Carpuject) IVP 2 mg Q2HR PRN Administration PAIN Oxycodone HCl 5 mg 02/11/20 18:10 02/13/20 18:44 Roxicodone PO 5 mg Q4HR PRN Administration PAIN Polyethylene Glycol 17 gm 02/11/20 09:00 02/14/20 08:54 Miralax PO 17 gm DAILY WILMAR Administration Prednisone 1 mg 02/12/20 08:00 02/14/20 08:56 Deltasone PO 1 mg DAILYWM WILMAR Administration Prochlorperazine Edisylate 10 mg 02/11/20 18:10 02/12/20 11:00 Compazine Inj IVP 10 mg Q6HR PRN Administration Nausea / Vomiting Sodium Chloride 10 ml 02/12/20 01:00 02/14/20 09:12 Normal Saline Flush 0.9% IVP 10 ml 0100,0900,1700 WILMAR Administration Trazodone HCl 50 mg 02/11/20 00:28 02/11/20 01:48 Desyrel PO 50 mg QPM PRN Administration Insomnia Warfarin Sodium 5 mg 02/12/20 21:00 02/12/20 22:00 Coumadin PO 5 mg TUFR@2100 WILMAR Administration Warfarin Sodium 3 mg 02/13/20 21:00 02/13/20 20:37 Coumadin PO 3 mg SUMOWETHSA@2100 WILMAR Administration Warfarin Sodium 1 mg 02/12/20 21:00 02/12/20 21:59 Coumadin PO 1 mg TUFR@2100 [facility] Administration - Lab Result Fish Bone Diagrams: 02/14/20 05:35 02/14/20 05:35 Subjective - Subjective Patient Reports: Dizzines (Dizzy when stood up to start working with PT, orthostatic vitals showed a 30 mmHg systolic drop) Objective Vital Signs: Vital Signs - 24 hr 02/13/20 02/13/20 02/13/20 13:00 17:00 20:49 Temperature 36.8 C 36.8 C 37.2 C Heart Rate [ 101 H 94 89 Brachial] Respiratory 20 16 16 Rate Blood Pressure 150/70 H 179/75 H 141/63 H [Left Brachial artery] Blood Pressure [Left Radial artery] O2 Saturation 97 94 92 02/14/20 02/14/20 02/14/20 01:00 05:10 07:42 Temperature 36.4 C L 36.6 C 36.4 C L Heart Rate [ 87 83 81 Brachial] Respiratory 16 16 18 Rate Blood Pressure 149/69 H 168/70 H [Left Brachial artery] Blood Pressure 157/71 H [Left Radial artery] O2 Saturation 93 96 92 02/14/20 11:56 Temperature 36.8 C Heart Rate [ 88 Brachial] Respiratory 20 Rate Blood Pressure 152/71 H [Left Brachial artery] Blood Pressure [Left Radial artery] O2 Saturation 93 Oxygen O2 Source Room air Oxygen Flow Rate 2 I&O (Last 24 Hrs): Intake and Output Totals x24h 02/12/20 02/13/20 02/14/20 23:59 23:59 23:59 Intake Total 2433.334 1190 120 Output Total 301 225 600 Balance 2132.334 965 -480 General: Alert HEENT: Mucous membr. moist/pink Neck: Supple, No JVD Neuro: Alert, Non Focal Cardiovascular: No murmurs Respiratory: No respiratory distress Abdomen: Soft Extremities: No edema, Other (L ankle bruised) - Results Results: Laboratory Results WBC 14.8 x10^3/uL (4.8-10.8) H 02/14/20 05:35 RBC 3.05 10^6/uL (4.20-5.40) L 02/14/20 05:35 Hgb 9.2 g/dL (12.0-16.0) L 02/14/20 05:35 Hct 28.2 % (37.0-47.0) L 02/14/20 05:35 MCV 92.5 fL (81.0-99.0) 02/14/20 05:35 MCH 30.2 pg (27.0-31.0) 02/14/20 05:35 MCHC 32.6 g/dL (32.0-36.0) 02/14/20 05:35 RDW 14.6 % (12.0-15.0) 02/14/20 05:35 Plt Count 362 10^3/uL (130-450) 02/14/20 05:35 MPV 11.0 fL (7.9-10.8) H 02/14/20 05:35 Reticulocyte % (Auto) 1.39 % (0.5-2.3) 02/12/20 05:20 Neut # (Auto) Not Reportable 02/14/20 05:35 Lymph # (Auto) Not Reportable 02/14/20 05:35 [place] # (Auto) Not Reportable 02/14/20 05:35 Eos # (Auto) Not Reportable 02/14/20 05:35 Baso # (Auto) Not Reportable 02/14/20 05:35 Absolute Nucleated RBC Not Reportable 02/14/20 05:35 Total Counted 100 02/14/20 05:35 Band Neuts % (Manual) 0 % (0-10) 02/14/20 05:35 Abnorm Lymph % (Manual) 0 % 02/14/20 05:35 Nucleated RBC % Not Reportable 02/14/20 05:35 Neutrophils # (Manual) 11.1 10^3/uL (1.5-6.6) H 02/14/20 05:35 Lymphocytes # (Manual) 2.2 10^3/uL (1.5-3.5) 02/14/20 05:35 Monocytes # (Manual) 1.0 10^3/uL (0.0-1.0) 02/14/20 05:35 Eosinophils # (Manual) 0.4 10^3/uL (0-0.7) 02/14/20 05:35 Basophils # (Manual) 0.0 10^3/uL (0-0.1) 02/14/20 05:35 Differential Comment MANUAL DIFFERENTIAL 02/14/20 05:35 WBC Morphology NORMAL APPEARANCE (NORMAL) 02/14/20 05:35 Platelet Estimate NORMAL (130-450,000) (NORMAL) 02/14/20 05:35 Platelet Morphology NORMAL APPEARANCE (NORMAL) 02/14/20 05:35 RBC Morph Micro Appear NORMAL APPEARANCE (NORMAL) 02/14/20 05:35 Absolute Retic 0.044 10^6/uL (0.020-0.110) 02/12/20 05:20 PT 18.5 secs (9.9-12.6) H 02/14/20 05:35 INR 1.7 (0.8-1.2) H 02/14/20 05:35 Whole Blood INR 1.7 (0.8-1.2) H 02/11/20 12:43 APTT 29.6 secs (24.9-33.3) 02/10/20 17:30 Sodium 134 mmol/L (135-145) L 02/14/20 05:35 Potassium 4.0 mmol/L (3.5-5.0) 02/14/20 05:35 Chloride 100 mmol/L (101-111) L 02/14/20 05:35 Carbon Dioxide 26 mmol/L (21-32) 02/14/20 05:35 Anion Gap 8.0 (6-13) 02/14/20 05:35 BUN 13 mg/dL (6-20) 02/14/20 05:35 Creatinine 0.6 mg/dL (0.4-1.0) 02/14/20 05:35 Estimated GFR (MDRD) 95 (>89) 02/14/20 05:35 Glucose 105 mg/dL (70-100) H 02/14/20 05:35 Calcium 8.7 mg/dL (8.5-10.3) 02/14/20 05:35 Iron 28 ug/dL (28-170) 02/12/20 05:20 TIBC 248 ug/dL (250-450) L 02/12/20 05:20 % Saturation 11 % (20-50) L 02/12/20 05:20 Transferrin 177 mg/dL (192-382) L 02/12/20 05:20 Ferritin 122.6 ng/mL (11.0-306.8) 02/12/20 05:20 Total Bilirubin 0.5 mg/dL (0.2-1.0) 02/10/20 17:30 AST 49 IU/L (10-42) H 02/10/20 17:30 ALT 53 IU/L (10-60) 02/10/20 17:30 Alkaline Phosphatase 149 IU/L (42-121) H 02/10/20 17:30 Lactate Dehydrogenase 186 IU/L (91-225) 02/12/20 05:20 Troponin I High Sens 6.9 ng/L (2.3-14.8) 02/10/20 17:30 Total Protein 6.8 g/dL (6.7-8.2) 02/10/20 17:30 Albumin 3.6 g/dL (3.2-5.5) 02/10/20 17:30 Globulin 3.2 g/dL (2.1-4.2) 02/10/20 17:30 Albumin/Globulin Ratio 1.1 (1.0-2.2) 02/10/20 17:30 Lipase 53 U/L (22-51) H 02/10/20 17:30 Vitamin B12 1353 pg/mL (180-914) H 02/12/20 05:20 TSH 0.21 uIU/mL (0.34-5.60) L 02/11/20 05:45 Free T4 2.04 ng/dL (0.58-1.64) H 02/12/20 05:20 Urine Color DARK YELLOW 02/11/20 09:23 Urine Clarity CLEAR (CLEAR) 02/11/20 09:23 Urine pH 6.5 PH (5.0-7.5) 02/11/20 09:23 Ur Specific [place] 1.025 (1.002-1.030) 02/11/20 09:23 Urine Protein 100 mg/dL (NEGATIVE) H 02/11/20 09:23 Urine Glucose (UA) NEGATIVE mg/dL (NEGATIVE) 02/11/20 Urine Ketones NEGATIVE mg/dL (NEGATIVE) 02/11/20 09: Urine Occult Blood NEGATIVE (NEGATIVE) 02/11/20 09: Urine Nitrite NEGATIVE (NEGATIVE) 02/11/20 Urine Bilirubin NEGATIVE (NEGATIVE) 02/11/20 Urine Urobilinogen 0.2 (NORMAL) E.U./dL (NORMAL) 02/11/20: Ur Leukocyte Esterase NEGATIVE (NEGATIVE) 02/11/20 09: Urine RBC 0-5 /HPF (0-5) 02/11/20 09: Urine WBC 0-3 /HPF (0-5) 02/11/20 09:23 Ur Squamous Epith Cells RARE Squamous (<= Few) 02/11/20 09:23 Urine Bacteria Rare /HPF (None Seen) 02/11/20 09: Coronavirus (PCR) NEGATIVE 02/12/20 06:15 Blood Type A POSITIVE 02/10/20 18:47 Antibody Screen NEGATIVE 02/10/20 18:47
[2020-02-14] MEDS ORDERED: SODIUM CHLORIDE 0.9% 500 ML IV ONE (13:00)
[2020-02-14] MEDS: ALPRAZolam 0.25 MG TABLET PO PRN (19:30)
[2020-02-14] MEDS: WARFARIN 1 MG TABLET PO SCH (20:07)
[2020-02-14] MEDS: oxyCODONE 5 MG TABLET PO PRN (20:08)
[2020-02-15 06:23] LABS: BASOPHILS # (AUTO) 0.1 10^3/uL (0.0-0.1); BASOPHILS % (AUTO) 0.3 %; EOSINOPHILS # (AUTO) 0.2 10^3/uL (0.0-0.7); EOSINOPHILS % (AUTO) 1.5 %; HGB - HEMOGLOBIN 10.2 g/dL (12.0-16.0); LYMPHOCYTES # (AUTO) 1.6 10^3/uL (1.5-3.5); LYMPHOCYTES % (AUTO) 10.3 %; MEAN CORPUSCULAR HEMOGLOBIN 30.3 pg (27.0-31.0); MEAN CORPUSCULAR HGB CONC 33.1 g/dL (32.0-36.0); MEAN CORPUSCULAR VOLUME 91.4 fL (81.0-99.0); MEAN PLATELET VOLUME 10.6 fL (7.9-10.8); MONOCYTES # (AUTO) 1.4 10^3/uL (0.0-1.0); MONOCYTES % (AUTO) 9.1 %; NEUTROPHILS # (AUTO) 11.8 10^3/uL (1.5-6.6); PLT - PLATELET COUNT 429 10^3/uL (130-450); RED BLOOD COUNT 3.37 10^6/uL (4.20-5.40); RED CELL DISTRIBUTION WIDTH 14.6 % (12.0-15.0); WHITE BLOOD COUNT 15.4 x10^3/uL (4.8-10.8)
[2020-02-15 06:27] LABS: INR 1.9 (0.8-1.2); PT - PROTHROMBIN TIME 20.6 secs (9.9-12.6)
[2020-02-15] MEDS: LEVOTHYROXINE 100 MCG TABLET PO SCH (06:27)
[2020-02-15 06:30] LABS: CALCIUM 8.8 mg/dL (8.5-10.3); CREATININE 0.6 mg/dL (0.4-1.0)
[2020-02-15] MEDS: ALPRAZolam 0.25 MG TABLET PO PRN (07:00)
[2020-02-15] MEDS: ACETAMINOPHEN 325 MG TABLET PO PRN (08:44)
[2020-02-15] MEDS: CALCIUM CARBONATE CHEW 500 MG TABLET PO SCH ×2 (08:44→20:33)
[2020-02-15] MEDS: FERROUS SULFATE 325 MG TABLET PO SCH (08:44)
[2020-02-15] MEDS: CHOLECALCIFEROL 400 UNIT TABLET PO SCH (08:44)
[2020-02-15] MEDS: METOPROLOL SUCCINATE 25 MG TABLET PO SCH (08:44)
[2020-02-15] MEDS: polyethylene glycoL 3350 17 GM PACKET PO SCH (08:45)
[2020-02-15] MEDS: SODIUM CHLORIDE FLUSH 0.9% 10 ML SYRINGE IVP SCH ×3 (08:45→23:41)
[2020-02-15] MEDS: predniSONE 1 MG TABLET PO SCH (08:52)
--- NOTE | 2020-02-15 10:27 | PROVIDER PROGRESS NOTE ---
Subjective - Prog Note Date Prog Note Date: 02/15/20 Prog Note Time: 10:24 - Subjective Pt reports feeling: Improved Objective - Vital Signs/Intake & Output Vital Signs: Vital Signs x48h Temp Pulse Resp BP Pulse Ox 02/15/20 09:00 37.0 C 85 18 166/80 H 96 02/15/20 03:22 36.9 C 88 16 152/78 H 94 Intake & Output: Intake & Output 02/12/20 02/13/20 02/14/20 02/15/20 23:59 23:59 23:59 23:59 Intake Total 2433.334 1190 1480 240 Output Total 643 997 7830 300 Balance 2132.334 965 280 -60 - Lab Results Fish Bones: 02/15/20 05:55 02/15/20 05:55 Other Labs: Lab Results x24hrs 02/15/20 02/15/20 02/15/20 Range/Units 05:55 05:55 05:55 WBC 15.4 H (4.8-10.8) x10^3/uL RBC 3.37 L (4.20-5.40) 10^6/uL Hgb 10.2 L (12.0-16.0) g/dL Hct 30.8 L (37.0-47.0) % MCV 91.4 (81.0-99.0) fL MCH 30.3 (27.0-31.0) pg MCHC 33.1 (32.0-36.0) g/dL RDW 14.6 (12.0-15.0) % Plt Count 429 (130-450) 10^3/uL MPV 10.6 (7.9-10.8) fL Neut # (Auto) 11.8 H (1.5-6.6) 10^3/uL Lymph # (Auto) 1.6 (1.5-3.5) 10^3/uL [place] # (Auto) 1.4 H (0.0-1.0) 10^3/uL Eos # (Auto) 0.2 (0.0-0.7) 10^3/uL Baso # (Auto) 0.1 (0.0-0.1) 10^3/uL Absolute Nucleated RBC 0.00 x10^3/uL Nucleated RBC % 0.0 /100WBC PT 20.6 H (9.9-12.6) secs INR 1.9 H (0.8-1.2) Sodium 133 L (135-145) mmol/L Potassium 3.8 (3.5-5.0) mmol/L Chloride 98 L (101-111) mmol/L Carbon Dioxide 25 (21-32) mmol/L Anion Gap 10.0 (6-13) BUN 15 (6-20) mg/dL Creatinine 0.6 (0.4-1.0) mg/dL Estimated GFR (MDRD) 95 (>89) Glucose 107 H (70-100) mg/dL Calcium 8.8 (8.5-10.3) mg/dL - Other Results/Comments Other Results/Comments: Exam: Nontender over right knee medially (over pes anserina). Good knee ROM. N/V ok distally Assessment/Plan - Problem List (1) Bursitis of right knee Impression: Improved PLAN: Activities as tolerated. Qualifiers: Knee bursitis location: pes anserinus bursitis Qualified Code(s): M70.51 - Other bursitis of knee, right knee
[2020-02-15] MEDS: oxyCODONE 5 MG TABLET PO PRN ×2 (10:57→20:33)
[2020-02-15] MEDS ORDERED: ALPRAZolam 0.25 MG TABLET PO PRN (11:26)
[2020-02-15] MEDS ORDERED: SODIUM CHLORIDE 0.9% 500 ML IV ONE (11:29)
--- NOTE | 2020-02-15 11:34 | PROVIDER PROGRESS NOTE ---
Assessment/Plan - Problem List (1) Orthostatic hypotension Assessment/Plan: Yesterday's discharge to SNF after hip surgery needed to be canceled because she was orthostatic and symptomatic, she had lightheadedness when going from sitting to standing, and systolic blood pressure dropped 30 mmHg. This morning she again has a drop in systolic BP of 27 mmHg and heart rate goes from 100 up to 126 in sinus tachycardia. She is not ready for discharge today. Will give a saline bolus of 500 cc. Will give 1 or possibly 2 bags of LR hydration at 83 cc/hr. Orthostasis may have been the reason for the fall as she exited the [facility] [employer] [facility], and not her "knee giving out". She has supine hypertension and is not a candidate for Midodrine, Florinef but may need support stockings. (2) Closed left hip fracture Qualifiers: Encounter type: subsequent encounter Assessment/Plan: Pain is under pretty good control but she voices being "afraid" and will increase her prn Ativan dose today>> this increase made her too sleepy and will return to the 0.25 mg dose. Continue working with PT and plan for discharge to a SNF. (3) Bursitis of right knee Qualifiers: Knee bursitis location: pes anserinus bursitis Qualified Code(s): M70.51 - Other bursitis of knee, right knee Assessment/Plan: She had pain of the opposite knee and reported that her "knee parrish all the time" and she falls at home for this reason. She was seen by Dr. Moreno in consult and had injection of lidocaine plus steroids. That knee has greatly improved symptoms and Dr. Moreno does not recommend a knee brace but to keep moving this joint. (4) Postoperative anemia Assessment/Plan: She received 1 unit PRBCs after her surgery. She was found to have iron deficiency anemia and has been started on oral replacement. Follow H/H daily. This could be adding to orthostasis if there is continued drop in BPs, that would make bleeding a concern, especially since she is back on her Coumadin. (5) History of atrial fibrillation Assessment/Plan: She is on metoprolol at home for rate control, today the heart rate was 100-1 26 during orthostatic vital sign checks. She is on Coumadin, it was held and reversed in order to have hip surgery. Orthopedist advised it be restarted without bolusing in order to have a slow rise in INR into a therapeutic range. Today the INR is 1.9. Monitor for signs of blood loss as the Coumadin is entering a therapeutic range, given the orthostasis. (6) Hypertension Qualifiers: Hypertension type: essential hypertension Qualified Code(s): I10 - Essential (primary) hypertension Assessment/Plan: Her home meds for this was Toprol-XL 25 mg daily and losartan 25 mg daily. Here she he is only on metoprolol because her admission blood pressure was in the 110-130 range. But, the last 2 days she has been hypertensive here. Will now resume her Losartan, watching carefully for worsened orthostasis. (7) Hypothyroidism Assessment/Plan: TSH was low, free T4 is high, We reduced Synthroid to 100 mcg daily. She will need Follow-up with her PCP to continue management after D[facility] (8) Hyperlipidemia Assessment/Plan: Continue her home med for this (9) Anxiety Assessment/Plan: Her nurse reports that she is very anxious and that the half tablet of Ativan is not helping her. Increase Alprazolam a full tablety of 0.5 mg p.o. 3 times daily as needed. This may be what made her sleepy in the afternoon however, therefore will go back to the 0.25 mg dose. 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 Steroid use could explained her elevated WBC - Current Meds Current Meds: Current Medications Generic Name Dose Route Start Last Admin Trade Name Freq PRN Reason Stop Dose Admin Acetaminophen 650 - 975 mg 02/11/20 18:10 02/15/20 08:44 Tylenol PO 650 mg Q4HR PRN Administration PAIN Calcium Carbonate/Glycine 500 mg 02/12/20 21:00 02/15/20 08:44 Tums PO 500 mg BID WILMAR Administration Cholecalciferol 800 unit 02/13/20 09:00 02/15/20 08:44 Vitamin D3 PO 800 unit DAILY WILMAR Administration Ferrous Sulfate 325 mg 02/12/20 10:00 02/15/20 08:44 Feosol PO 325 mg DAILYWM WILMAR Administration Levothyroxine Sodium 100 mcg 02/13/20 07:00 02/15/20 06:27 Synthroid PO 100 mcg QDAC WILMAR Administration Metoprolol Succinate 25 mg 02/11/20 09:00 02/15/20 08:44 Toprol Xl PO 25 mg DAILY WILMAR Administration Morphine Sulfate 2 mg 02/10/20 19:31 02/11/20 11:26 Morphine (Carpuject) IVP 2 mg Q2HR PRN Administration PAIN Polyethylene Glycol 17 gm 02/11/20 09:00 02/15/20 08:45 Miralax PO 17 gm DAILY WILMAR Administration Prednisone 1 mg 02/12/20 08:00 02/15/20 08:52 Deltasone PO 1 mg DAILYWM WILMAR Administration Prochlorperazine Edisylate 10 mg 02/11/20 18:10 02/12/20 11:00 Compazine Inj IVP 10 mg Q6HR PRN Administration Nausea / Vomiting Sodium Chloride 10 ml 02/12/20 01:00 02/15/20 08:45 Normal Saline Flush 0.9% IVP 10 ml 0100,0900,1700 WILMAR Administration Trazodone HCl 50 mg 02/11/20 00:28 02/11/20 01:48 Desyrel PO 50 mg QPM PRN Administration Insomnia Warfarin Sodium 5 mg 02/12/20 21:00 02/12/20 22:00 Coumadin PO 5 mg TUFR@2100 WILMAR Administration Warfarin Sodium 3 mg 02/13/20 21:00 02/14/20 20:07 Coumadin PO 3 mg SUMOWETHSA@2100 WILMAR Administration Warfarin Sodium 1 mg 02/12/20 21:00 02/12/20 21:59 Coumadin PO 1 mg TUFR@2100 WILMAR Administration - Lab Result Fish Bone Diagrams: 02/15/20 05:55 02/15/20 05:55 - Additional Planning My Orders: My Active Orders 02/15/20 COVID-19 REFERENCE TEST Routine 02/15/20 09:15 Orthostatic [Vital Signs - Orthostatic] [RC] DAILY 02/15/20 11:26 ALPRAZolam [Xanax] 0.5 mg PO TID PRN 02/15/20 11:27 oxyCODONE [Roxicodone] 5 mg PO Q6HR PRN 02/15/20 11:29 Sodium Chloride 0.9% [Normal Saline 0.9%] 500 ml IV ONCE 02/15/20 13:00 Lactated Ringers [Lr] 1,000 ml IV 83.333 mls/hr Subjective - Subjective Patient Reports: Resting Comfortably, Other (Sleeping in her recliner chair) Objective Vital Signs: Vital Signs - 24 hr 02/14/20 02/14/20 02/14/20 11:56 16:34 20:05 Temperature 36.8 C 36.5 C 37.0 C Heart Rate [ 88 90 86 Brachial] Respiratory 20 16 20 Rate Blood Pressure 152/71 H 155/82 H 164/80 H [Left Brachial artery] O2 Saturation 93 96 95 02/14/20 02/15/20 02/15/20 23:42 03:22 09:00 Temperature 36.6 C 36.9 C 37.0 C Heart Rate [ 87 88 85 Brachial] Respiratory 16 16 18 Rate Blood Pressure 159/75 H 152/78 H 166/80 H [Left Brachial artery] O2 Saturation 100 94 96 02/15/20 11:13 Temperature 36.5 C Heart Rate [ 102 H Brachial] Respiratory 20 Rate Blood Pressure 167/73 H [Left Brachial artery] O2 Saturation 95 Oxygen O2 Source Room air Oxygen Flow Rate 2 I&O (Last 24 Hrs): Intake and Output Totals x24h 02/13/20 02/14/20 02/15/20 23:59 23:59 23:59 Intake Total 1190 1480 240 Output Total 225 1200 300 Balance 965 280 -60 General: Other HEENT: Mucous membr. moist/pink (Somnolent.) Neck: Supple Neuro: Non Focal Respiratory: No respiratory distress Abdomen: Soft Extremities: Other (Left ankle has a large bruise, the right knee is less swollen than yesterday) - Results Results: Laboratory Results WBC 15.4 x10^3/uL (4.8-10.8) H 02/15/20 05:55 RBC 3.37 10^6/uL (4.20-5.40) L 02/15/20 05:55 Hgb 10.2 g/dL (12.0-16.0) L 02/15/20 05:55 Hct 30.8 % (37.0-47.0) L 02/15/20 05:55 MCV 91.4 fL (81.0-99.0) 02/15/20 05:55 MCH 30.3 pg (27.0-31.0) 02/15/20 05:55 MCHC 33.1 g/dL (32.0-36.0) 02/15/20 05:55 RDW 14.6 % (12.0-15.0) 02/15/20 05:55 Plt Count 429 10^3/uL (130-450) 02/15/20 05:55 MPV 10.6 fL (7.9-10.8) 02/15/20 05:55 Reticulocyte % (Auto) 1.39 % (0.5-2.3) 02/12/20 05:20 Neut # (Auto) 11.8 10^3/uL (1.5-6.6) H 02/15/20 05:55 Lymph # (Auto) 1.6 10^3/uL (1.5-3.5) 02/15/20 05:55 [place] # (Auto) 1.4 10^3/uL (0.0-1.0) H 02/15/20 05:55 Eos # (Auto) 0.2 10^3/uL (0.0-0.7) 02/15/20 05:55 Baso # (Auto) 0.1 10^3/uL (0.0-0.1) 02/15/20 05:55 Absolute Nucleated RBC 0.00 x10^3/uL 02/15/20 05:55 Total Counted 100 02/14/20 05:35 Band Neuts % (Manual) 0 % (0-10) 02/14/20 05:35 Abnorm Lymph % (Manual) 0 % 02/14/20 05:35 Nucleated RBC % 0.0 /100WBC 02/15/20 05:55 Neutrophils # (Manual) 11.1 10^3/uL (1.5-6.6) H 02/14/20 05:35 Lymphocytes # (Manual) 2.2 10^3/uL (1.5-3.5) 02/14/20 05:35 Monocytes # (Manual) 1.0 10^3/uL (0.0-1.0) 02/14/20 05:35 Eosinophils # (Manual) 0.4 10^3/uL (0-0.7) 02/14/20 05:35 Basophils # (Manual) 0.0 10^3/uL (0-0.1) 02/14/20 05:35 Differential Comment MANUAL DIFFERENTIAL 02/14/20 05:35 WBC Morphology NORMAL APPEARANCE (NORMAL) 02/14/20 05:35 Platelet Estimate NORMAL (130-450,000) (NORMAL) 02/14/20 05:35 Platelet Morphology NORMAL APPEARANCE (NORMAL) 02/14/20 05:35 RBC Morph Micro Appear NORMAL APPEARANCE (NORMAL) 02/14/20 05:35 Absolute Retic 0.044 10^6/uL (0.020-0.110) 02/12/20 05:20 PT 20.6 secs (9.9-12.6) H 02/15/20 05:55 INR 1.9 (0.8-1.2) H 02/15/20 05:55 Whole Blood INR 1.7 (0.8-1.2) H 02/11/20 12:43 APTT 29.6 secs (24.9-33.3) 02/10/20 17:30 Sodium 133 mmol/L (135-145) L 02/15/20 05:55 Potassium 3.8 mmol/L (3.5-5.0) 02/15/20 05:55 Chloride 98 mmol/L (101-111) L 02/15/20 05:55 Carbon Dioxide 25 mmol/L (21-32) 02/15/20 05:55 Anion Gap 10.0 (6-13) 02/15/20 05:55 BUN 15 mg/dL (6-20) 02/15/20 05:55 Creatinine 0.6 mg/dL (0.4-1.0) 02/15/20 05:55 Estimated GFR (MDRD) 95 (>89) 02/15/20 05:55 Glucose 107 mg/dL (70-100) H 02/15/20 05:55 Calcium 8.8 mg/dL (8.5-10.3) 02/15/20 05:55 Iron 28 ug/dL (28-170) 02/12/20 05:20 TIBC 248 ug/dL (250-450) L 02/12/20 05:20 % Saturation 11 % (20-50) L 02/12/20 05:20 Transferrin 177 mg/dL (192-382) L 02/12/20 05:20 Ferritin 122.6 ng/mL (11.0-306.8) 02/12/20 05:20 Total Bilirubin 0.5 mg/dL (0.2-1.0) 02/10/20 17:30 AST 49 IU/L (10-42) H 02/10/20 17:30 ALT 53 IU/L (10-60) 02/10/20 17:30 Alkaline Phosphatase 149 IU/L (42-121) H 02/10/20 17:30 Lactate Dehydrogenase 186 IU/L (91-225) 02/12/20 05:20 Troponin I High Sens 6.9 ng/L (2.3-14.8) 02/10/20 17:30 Total Protein 6.8 g/dL (6.7-8.2) 02/10/20 17:30 Albumin 3.6 g/dL (3.2-5.5) 02/10/20 17:30 Globulin 3.2 g/dL (2.1-4.2) 02/10/20 17:30 Albumin/Globulin Ratio 1.1 (1.0-2.2) 02/10/20 17:30 Lipase 53 U/L (22-51) H 02/10/20 17:30 Vitamin B12 1353 pg/mL (180-914) H 02/12/20 05:20 TSH 0.21 uIU/mL (0.34-5.60) L 02/11/20 05:45 Free T4 2.04 ng/dL (0.58-1.64) H 02/12/20 05:20 Urine Color DARK YELLOW 02/11/20 09:23 Urine Clarity CLEAR (CLEAR) 02/11/20 09: Urine pH 6.5 PH (5.0-7.5) 02/11/20 09:23 Ur Specific [place] 1.025 (1.002-1.030) 02/11/20 09:23 Urine Protein 100 mg/dL (NEGATIVE) H 02/11/20 09:23 Urine Glucose (UA) NEGATIVE mg/dL (NEGATIVE) 02/11/20 09:23 Urine Ketones NEGATIVE mg/dL (NEGATIVE) 02/11/20 09:23 Urine Occult Blood NEGATIVE (NEGATIVE) 02/11/20 09:23 Urine Nitrite NEGATIVE (NEGATIVE) 02/11/20 09:23 Urine Bilirubin NEGATIVE (NEGATIVE) 02/11/20 09:23 Urine Urobilinogen 0.2 (NORMAL) E.U./dL (NORMAL) 02/11/20 09:23 Ur Leukocyte Esterase NEGATIVE (NEGATIVE) 02/11/20 09:23 Urine RBC 0-5 /HPF (0-5) 02/11/20 09:23 Urine WBC 0-3 /HPF (0-5) 02/11/20 09:23 Ur Squamous Epith Cells RARE Squamous (<= Few) 02/11/20 09:23 Urine Bacteria Rare /HPF (None Seen) 02/11/20 09:23 Coronavirus (PCR) NEGATIVE 02/12/20 06:15 Blood Type A POSITIVE 02/10/20 18:47 Antibody Screen NEGATIVE 02/10/20 18:47
[2020-02-15] MEDS: LACTATED RINGERS 1,000 ML IV SCH ×2 (12:25→22:14)
[2020-02-15] MEDS: LOSARTAN 50 MG TABLET PO SCH (14:12)
[2020-02-15] MEDS: DOCUSATE SODIUM 250 MG CAPSULE PO SCH (19:07)
[2020-02-15] MEDS: SENNA 8.6 MG TABLET PO SCH (19:07)
[2020-02-15] MEDS: WARFARIN 1 MG TABLET PO SCH (20:34)
[2020-02-15] MEDS: ATORVASTATIN 10 MG TABLET PO SCH (20:36)
[2020-02-16] MEDS ORDERED: METOPROLOL SUCCINATE 25 MG TABLET PO ONE (00:26)
[2020-02-16] MEDS: oxyCODONE 5 MG TABLET PO PRN ×3 (02:27→23:48)
[2020-02-16] MEDS: LEVOTHYROXINE 100 MCG TABLET PO SCH (06:31)
[2020-02-16] MEDS: SENNA 8.6 MG TABLET PO SCH (08:40)
[2020-02-16] MEDS: DOCUSATE SODIUM 250 MG CAPSULE PO SCH (08:41)
[2020-02-16] MEDS: FERROUS SULFATE 325 MG TABLET PO SCH (08:42)
[2020-02-16] MEDS: polyethylene glycoL 3350 17 GM PACKET PO SCH (08:42)
[2020-02-16] MEDS: SODIUM CHLORIDE FLUSH 0.9% 10 ML SYRINGE IVP SCH ×3 (08:42→23:49)
[2020-02-16] MEDS: CALCIUM CARBONATE CHEW 500 MG TABLET PO SCH ×2 (08:42→21:17)
[2020-02-16] MEDS: predniSONE 1 MG TABLET PO SCH (08:42)
[2020-02-16] MEDS: CHOLECALCIFEROL 400 UNIT TABLET PO SCH (08:42)
[2020-02-16] MEDS: ACETAMINOPHEN 325 MG TABLET PO PRN ×2 (08:44→17:06)
[2020-02-16] MEDS ORDERED: METOPROLOL SUCCINATE 25 MG TABLET PO SCH (09:00)
[2020-02-16] MEDS: LOSARTAN 50 MG TABLET PO SCH (10:28)
--- NOTE | 2020-02-16 11:15 | PROVIDER PROGRESS NOTE ---
Assessment/Plan - Problem List (1) Orthostatic hypotension Assessment/Plan: Patient still present orthostatic hypotension with tachycardia, Blood pressure drop 30 mmHG When she is sitting and standing. She also has supine hypertension and is not a candidate for Of pharmacotherapy management, such as Midodrine. We will hold Losartan, keep home Metoprolol dosage, gently hydration, and Compression stocking. We educate patient for prevention of fall, Patient will not be discharged on today because of above reason (2) Closed left hip fracture Patient pain is under good control, We will continue physical therapist and occupational therapist, Continue follow-up with orthopedic surgeon (3) Bursitis of right knee pt was consulted by Dr. Moreno and had injection of lidocaine plus steroids. pt report her knee has greatly improved symptoms and Dr. Moreno does not recommend a knee brace but to keep moving this joint. (4) Postoperative anemia improved, hemoglobin is 10.2, continue iron PO (5) History of atrial fibrillation Assessment/Plan: HR is controlled. Patient already restarted with Coumadin, continue PT/INR monitor (6) Hypertension stable, We will hold losartan For orthostatic hypotension, continue metoprolol (7) Hypothyroidism TSH was low, free T4 is high, We reduced Synthroid to 100 mcg daily. She will need Follow-up with her PCP to continue management after Dch (8) Hyperlipidemia Assessment/Plan: Continue her home med for this (9) Anxiety Assessment/Plan: Her nurse reports that she is very anxious and that the half tablet of Ativan is not helping her. Increase Alprazolam a full tablety of 0.5 mg p.o. 3 times daily as needed. This may be what made her sleepy in the afternoon however, therefore will go back to the 0.25 mg dose. 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 Steroid use could explained her elevated WBC - Current Meds Current Meds: Current Medications Generic Name Dose Route Start Last Admin Trade Name Freq PRN Reason Stop Dose Admin Acetaminophen 650 - 975 mg 02/11/20 18:10 02/16/20 08:44 Tylenol PO 650 mg Q4HR PRN Administration PAIN Atorvastatin Calcium 5 mg 02/15/20 21:00 02/15/20 20:36 Lipitor PO 5 mg QPM WILMAR Administration Calcium Carbonate/Glycine 500 mg 02/12/20 21:00 02/16/20 08:42 Tums PO 500 mg BID WILMAR Administration Cholecalciferol 800 unit 02/13/20 09:00 02/16/20 08:42 Vitamin D3 PO 800 unit DAILY WILMAR Administration Docusate Sodium 250 - 500 mg 02/15/20 19:00 02/16/20 08:41 Colace 250mg Capsule PO 250 mg DAILY WILMAR Administration Ferrous Sulfate 325 mg 02/12/20 10:00 02/16/20 08:42 Feosol PO 325 mg DAILYWM WILMAR Administration Lactated Ringer's 1,000 mls @ 83.333 mls/hr 02/15/20 13:00 02/16/20 08:47 Lr IV 02/16/20 12:59 Infused .Q12H WILMAR Infusion Levothyroxine Sodium 100 mcg 02/13/20 07:00 02/16/20 06:31 Synthroid PO 100 mcg QDAC WILMAR Administration Morphine Sulfate 2 mg 02/10/20 19:31 02/11/20 11:26 Morphine (Carpuject) IVP 2 mg Q2HR PRN Administration PAIN Oxycodone HCl 5 mg 02/15/20 11:27 02/16/20 02:27 Roxicodone PO 5 mg Q6HR PRN Administration PAIN Polyethylene Glycol 17 gm 02/11/20 09:00 02/16/20 08:42 Miralax PO 17 gm DAILY WILMAR Administration Prednisone 1 mg 02/12/20 08:00 02/16/20 08:42 Deltasone PO 1 mg DAILYWM [facility]ILMAR Administration Prochlorperazine Edisylate 10 mg 02/11/20 18:10 02/12/20 11:00 Compazine Inj IVP 10 mg Q6HR PRN Administration Nausea / Vomiting Senna 8.6 - 17.2 mg 02/15/20 19:00 02/16/20 08:40 Senokot PO 8.6 mg DAILY WILMAR Administration Sodium Chloride 10 ml 02/12/20 01:00 02/16/20 08:42 Normal Saline Flush 0.9% IVP 10 ml 0100,0900,1700 WILMAR Administration Trazodone HCl 50 mg 02/11/20 00:28 02/11/20 01:48 Desyrel PO 50 mg QPM PRN Administration Insomnia Ursodiol 250 mg 02/15/20 14:00 02/16/20 06:31 Jordon 250 PO 250 mg TID [facility] Administration Warfarin Sodium 5 mg 02/12/20 21:00 02/12/20 22:00 Coumadin PO 5 mg TUFR@2099 [facility] Administration Warfarin Sodium 3 mg 02/13/20 21:00 02/15/20 20:34 Coumadin PO 3 mg SUMOWETHSA@2100 [facility] Administration Warfarin Sodium 1 mg 02/12/20 21:00 02/12/20 21:59 Coumadin PO 1 mg TUFR@2100 [facility] Administration - Lab Result Fish Bone Diagrams: 02/15/20 05:55 02/15/20 05:55 - Additional Planning My Orders: My Active Orders 02/16/20 10:32 Echo Transthoracic Complete [ECHO] Routine 02/17/20 09:00 Metoprolol Succinate [Toprol Xl] 25 mg PO DAILY Subjective - Subjective Patient Reports: Feeling Better Objective Vital Signs: Vital Signs - 24 hr 02/15/20 02/15/20 02/15/20 11:13 14:15 17:42 Temperature 36.5 C 36.3 C L Heart Rate [ 102 H 91 Brachial] Respiratory 20 16 Rate Blood Pressure 167/73 H 155/93 H [Left Brachial artery] Blood Pressure 153/71 H [Left Radial artery] O2 Saturation 95 98 02/15/20 02/16/20 02/16/20 21:12 00:16 05:15 Temperature 37.1 C 37.1 C 36.6 C Heart Rate [ 81 95 90 Brachial] Respiratory 16 Rate Blood Pressure 160/76 H 178/73 H [Left Brachial artery] Blood Pressure 170/69 H [Left Radial artery] O2 Saturation 96 95 96 02/16/20 02/16/20 08:14 10:27 Temperature 37 C Heart Rate [ 91 92 Brachial] Respiratory 18 Rate Blood Pressure 169/80 H 136/85 H [Left Brachial artery] Blood Pressure [Left Radial artery] O2 Saturation 97 Oxygen O2 Source Room air Oxygen Flow Rate 2 I&O (Last 24 Hrs): Intake and Output Totals x24h 02/14/20 02/15/20 02/16/20 23:59 23:59 23:59 Intake Total 1480 2228.052 1280 Output Total 1200 1400 1200 Balance 280 828.052 80 General: Alert, Oriented x3, No acute distress HEENT: Atraumatic Neck: Supple Lymphatic: no adenopathy Neuro: Alert, Non Focal, Oriented Times 3 Cardiovascular: Regular rate, Normal S1, Normal S2 Respiratory: Chest non-tender, No respiratory distress, Breath sounds nml Abdomen: Normal bowel sounds, Soft Extremities: Normal pulses - Results Results: Laboratory Results WBC 15.4 x10^3/uL (4.8-10.8) H 02/15/20 05:55 RBC 3.37 10^6/uL (4.20-5.40) L 02/15/20 05:55 Hgb 10.2 g/dL (12.0-16.0) L 02/15/20 05:55 Hct 30.8 % (37.0-47.0) L 02/15/20 05:55 MCV 91.4 fL (81.0-99.0) 02/15/20 05:55 MCH 30.3 pg (27.0-31.0) 02/15/20 05:55 MCHC 33.1 g/dL (32.0-36.0) 02/15/20 05:55 RDW 14.6 % (12.0-15.0) 02/15/20 05:55 Plt Count 429 10^3/uL (130-450) 02/15/20 05:55 MPV 10.6 fL (7.9-10.8) 02/15/20 05:55 Reticulocyte % (Auto) 1.39 % (0.5-2.3) 02/12/20 05:20 Neut # (Auto) 11.8 10^3/uL (1.5-6.6) H 02/15/20 05:55 Lymph # (Auto) 1.6 10^3/uL (1.5-3.5) 02/15/20 05:55 [place] # (Auto) 1.4 10^3/uL (0.0-1.0) H 02/15/20 05:55 Eos # (Auto) 0.2 10^3/uL (0.0-0.7) 02/15/20 05:55 Baso # (Auto) 0.1 10^3/uL (0.0-0.1) 02/15/20 05:55 Absolute Nucleated RBC 0.00 x10^3/uL 02/15/20 05:55 Total Counted 100 02/14/20 05:35 Band Neuts % (Manual) 0 % (0-10) 02/14/20 05:35 Abnorm Lymph % (Manual) 0 % 02/14/20 05:35 Nucleated RBC % 0.0 /100WBC 02/15/20 05:55 Neutrophils # (Manual) 11.1 10^3/uL (1.5-6.6) H 02/14/20 05:35 Lymphocytes # (Manual) 2.2 10^3/uL (1.5-3.5) 02/14/20 05:35 Monocytes # (Manual) 1.0 10^3/uL (0.0-1.0) 02/14/20 05:35 Eosinophils # (Manual) 0.4 10^3/uL (0-0.7) 02/14/20 05:35 Basophils # (Manual) 0.0 10^3/uL (0-0.1) 02/14/20 05:35 Differential Comment MANUAL DIFFERENTIAL 02/14/20 05:35 WBC Morphology NORMAL APPEARANCE (NORMAL) 02/14/20 05:35 Platelet Estimate NORMAL (130-450,000) (NORMAL) 02/14/20 05:35 Platelet Morphology NORMAL APPEARANCE (NORMAL) 02/14/20 05:35 RBC Morph Micro Appear NORMAL APPEARANCE (NORMAL) 02/14/20 05:35 Absolute Retic 0.044 10^6/uL (0.020-0.110) 02/12/20 05:20 PT 20.6 secs (9.9-12.6) H 02/15/20 05:55 INR 1.9 (0.8-1.2) H 02/15/20 05:55 Whole Blood INR 1.7 (0.8-1.2) H 02/11/20 12:43 APTT 29.6 secs (24.9-33.3) 02/10/20 17:30 Sodium 133 mmol/L (135-145) L 02/15/20 05:55 Potassium 3.8 mmol/L (3.5-5.0) 02/15/20 05:55 Chloride 98 mmol/L (101-111) L 02/15/20 05:55 Carbon Dioxide 25 mmol/L (21-32) 02/15/20 05:55 Anion Gap 10.0 (6-13) 02/15/20 05:55 BUN 15 mg/dL (6-20) 02/15/20 05:55 Creatinine 0.6 mg/dL (0.4-1.0) 02/15/20 05:55 Estimated GFR (MDRD) 95 (>89) 02/15/20 05:55 Glucose 107 mg/dL (70-100) H 02/15/20 05:55 Calcium 8.8 mg/dL (8.5-10.3) 02/15/20 05:55 Iron 28 ug/dL (28-170) 02/12/20 05:20 TIBC 248 ug/dL (250-450) L 02/12/20 05:20 % Saturation 11 % (20-50) L 02/12/20 05:20 Transferrin 177 mg/dL (192-382) L 02/12/20 05:20 Ferritin 122.6 ng/mL (11.0-306.8) 02/12/20 05:20 Total Bilirubin 0.5 mg/dL (0.2-1.0) 02/10/20 17:30 AST 49 IU/L (10-42) H 02/10/20 17:30 ALT 53 IU/L (10-60) 02/10/20 17:30 Alkaline Phosphatase 149 IU/L (42-121) H 02/10/20 17:30 Lactate Dehydrogenase 186 IU/L (91-225) 02/12/20 05:20 Troponin I High Sens 6.9 ng/L (2.3-14.8) 02/10/20 17:30 Total Protein 6.8 g/dL (6.7-8.2) 02/10/20 17:30 Albumin 3.6 g/dL (3.2-5.5) 02/10/20 17:30 Globulin 3.2 g/dL (2.1-4.2) 02/10/20 17:30 Albumin/Globulin Ratio 1.1 (1.0-2.2) 02/10/20 17:30 Lipase 53 U/L (22-51) H 02/10/20 17:30 Vitamin B12 1353 pg/mL (180-914) H 02/12/20 05:20 TSH 0.21 uIU/mL (0.34-5.60) L 02/11/20 05:45 Free T4 2.04 ng/dL (0.58-1.64) H 02/12/20 05:20 Urine Color DARK YELLOW 02/11/20 09:23 Urine Clarity CLEAR (CLEAR) 02/11/20 09:23 Urine pH 6.5 PH (5.0-7.5) 02/11/20 09:23 Ur Specific [place] 1.025 (1.002-1.030) 02/11/20 09:23 Urine Protein 100 mg/dL (NEGATIVE) H 02/11/20 09:23 Urine Glucose (UA) NEGATIVE mg/dL (NEGATIVE) 02/11/20 09:23 Urine Ketones NEGATIVE mg/dL (NEGATIVE) 02/11/20 09:23 Urine Occult Blood NEGATIVE (NEGATIVE) 02/11/20 09: Urine Nitrite NEGATIVE (NEGATIVE) 02/11/20 09: Urine Bilirubin NEGATIVE (NEGATIVE) 02/11/20 09:23 Urine Urobilinogen 0.2 (NORMAL) E.U./dL (NORMAL) 02/11/20 09:23 Ur Leukocyte Esterase NEGATIVE (NEGATIVE) 02/11/20 09:23 Urine RBC 0-5 /HPF (0-5) 02/11/20 09:23 Urine WBC 0-3 /HPF (0-5) 02/11/20 09:23 Ur Squamous Epith Cells RARE Squamous (<= Few) 02/11/20 09:23 Urine Bacteria Rare /HPF (None Seen) 02/11/20 09:23 Coronavirus (PCR) NEGATIVE 02/12/20 06:15 Blood Type A POSITIVE 02/10/20 18:47 Antibody Screen NEGATIVE 02/10/20 18:47 Sepsis Event Note (H) - Evaluation Current Stage of Sepsis: Ruled out ABX Reporting Has patient been on IV antibiotics over the past 48 hours?: No Current Medications - Current Medications Current Medications: Active Medications Acetaminophen (Tylenol) 650 - 975 mg PO Q4HR PRN PRN Reason: PAIN Last Admin: 02/16/20 08:44 Dose: 650 mg Documented by: Alprazolam (Xanax) 0.25 mg PO TID PRN PRN Reason: anxiety/insomnia Atorvastatin Calcium (Lipitor) 5 mg PO QPM WILMAR Last Admin: 02/15/20 20:36 Dose: 5 mg Documented by: Calcium Carbonate/Glycine (Tums) 500 mg PO BID [facility] Last Admin: 02/16/20 08:42 Dose: 500 mg Documented by: Cholecalciferol (Vitamin D3) 800 unit PO DAILY [facility] Last Admin: 02/16/20 08:42 Dose: 800 unit Documented by: Docusate Sodium (Colace 250mg Capsule) 250 - 500 mg PO DAILY [facility] Last Admin: 02/16/20 08:41 Dose: 250 mg Documented by: Ferrous Sulfate (Feosol) 325 mg PO DAILYWM [facility] Last Admin: 02/16/20 08:42 Dose: 325 mg Documented by: Lactated Ringer's (Lr) 1,000 mls @ 83.333 mls/hr IV .Q12H [facility] Stop: 02/16/20 12:59 Last Infusion: 02/16/20 08:47 Dose: Infused Documented by: Levothyroxine Sodium (Synthroid) 100 mcg PO QDAC [facility] Last Admin: 02/16/20 06:31 Dose: 100 mcg Documented by: Metoprolol Succinate (Toprol Xl) 25 mg PO DAILY [facility] Morphine Sulfate (Morphine (Carpuject)) 2 mg IVP Q2HR PRN PRN Reason: PAIN Last Admin: 02/11/20 11:26 Dose: 2 mg Documented by: Ondansetron HCl (Zofran Inj) 4 mg IVP Q6HR PRN PRN Reason: Nausea / Vomiting Oxycodone HCl (Roxicodone) 5 mg PO Q6HR PRN PRN Reason: PAIN Last Admin: 02/16/20 02:27 Dose: 5 mg Documented by: Polyethylene Glycol (Miralax) 17 gm PO DAILY [facility] Last Admin: 02/16/20 08:42 Dose: 17 gm Documented by: Prednisone (Deltasone) 1 mg PO DAILYWM [facility] Last Admin: 02/16/20 08:42 Dose: 1 mg Documented by: Prochlorperazine Edisylate (Compazine Inj) 10 mg IVP Q6HR PRN PRN Reason: Nausea / Vomiting Last Admin: 02/12/20 11:00 Dose: 10 mg Documented by: Senna (Senokot) 8.6 - 17.2 mg PO DAILY [facility] Last Admin: 02/16/20 08:40 Dose: 8.6 mg Documented by: Sodium Chloride (Normal Saline Flush 0.9%) 10 ml IVP 0100,0900,1700 [facility] Last Admin: 02/16/20 08:42 Dose: 10 ml Documented by: Sodium Chloride (Normal Saline Flush 0.9%) 10 ml IVP PRN PRN PRN Reason: NEEDED PER PROVIDER ORDERS Trazodone HCl (Desyrel) 50 mg PO QPM PRN PRN Reason: Insomnia Last Admin: 02/11/20 01:48 Dose: 50 mg Documented by: Ursodiol (Jordon 250) 250 mg PO TID [facility] Last Admin: 02/16/20 06:31 Dose: 250 mg Documented by: Warfarin Sodium (Coumadin) 5 mg PO TUFR@2099 [facility] Last Admin: 02/12/20 22:00 Dose: 5 mg Documented by: Warfarin Sodium (Coumadin) 3 mg PO SUMOA@2099 [facility] Last Admin: 02/15/20 20:34 Dose: 3 mg Documented by: Warfarin Sodium (Coumadin) 1 mg PO TUFR@2099 [facility] Last Admin: 02/12/20 21:59 Dose: 1 mg Documented by: Budesonide [Budesonide EC] 3 mg PO DAILY 10/12/14 Omeprazole [PriLOSEC] 20 mg PO DAILY 10/12/14 Simvastatin 5 mg PO QPM 10/12/14 Warfarin Sodium [Coumadin] 6 mg PO TUFR@209910/12/14 Garlic 1 tab PO DAILY 04/27/19 Lactobacillus Acidophilus [Probiotic Acidophilus] 1 tab PO DAILY 04/27/19 [place]-3/Dha/Epa/Fish Oil [Fish Oil 1,000 mg Softgel] 3,000 mg PO DAILY 04/27/19 Losartan Potassium 25 mg PO DAILY 04/28/19 Metoprolol Succinate [Toprol Xl] 25 mg PO DAILY 04/28/19 Warfarin Sodium 3 mg PO SUMOWETHSA@209904/28/19 ursodioL [Jordon 250] 250 mg PO TID 04/28/19 Prednisone 1 mg PO DAILY 01/07/20
[2020-02-16] MEDS: ATORVASTATIN 10 MG TABLET PO SCH (21:17)
[2020-02-16] MEDS: WARFARIN 5 MG TABLET PO SCH (21:18)
[2020-02-16] MEDS: WARFARIN 1 MG TABLET PO SCH (21:18)
[2020-02-17] MEDS: ALPRAZolam 0.25 MG TABLET PO PRN ×2 (03:53→12:10)
[2020-02-17] MEDS: LEVOTHYROXINE 100 MCG TABLET PO SCH (05:58)
[2020-02-17] MEDS: ACETAMINOPHEN 325 MG TABLET PO PRN ×2 (06:03→12:10)
[2020-02-17] MEDS: SODIUM CHLORIDE FLUSH 0.9% 10 ML SYRINGE IVP SCH (08:03)
[2020-02-17] MEDS: predniSONE 1 MG TABLET PO SCH (08:04)
[2020-02-17] MEDS: CHOLECALCIFEROL 400 UNIT TABLET PO SCH (08:04)
[2020-02-17] MEDS: FERROUS SULFATE 325 MG TABLET PO SCH (08:04)
[2020-02-17] MEDS: polyethylene glycoL 3350 17 GM PACKET PO SCH (08:05)
[2020-02-17] MEDS: DOCUSATE SODIUM 250 MG CAPSULE PO SCH (08:05)
[2020-02-17] MEDS: SENNA 8.6 MG TABLET PO SCH (08:06)
[2020-02-17] MEDS: CALCIUM CARBONATE CHEW 500 MG TABLET PO SCH (08:07)
[2020-02-17 08:14] LABS: BASOPHILS # (AUTO) 0.1 10^3/uL (0.0-0.1); BASOPHILS % (AUTO) 0.7 %; EOSINOPHILS # (AUTO) 0.5 10^3/uL (0.0-0.7); EOSINOPHILS % (AUTO) 3.9 %; HGB - HEMOGLOBIN 10.1 g/dL (12.0-16.0); LYMPHOCYTES # (AUTO) 2.2 10^3/uL (1.5-3.5); LYMPHOCYTES % (AUTO) 15.9 %; MEAN CORPUSCULAR HEMOGLOBIN 30.3 pg (27.0-31.0); MEAN CORPUSCULAR HGB CONC 32.4 g/dL (32.0-36.0); MEAN CORPUSCULAR VOLUME 93.7 fL (81.0-99.0); MEAN PLATELET VOLUME 10.2 fL (7.9-10.8); MONOCYTES # (AUTO) 1.6 10^3/uL (0.0-1.0); NEUTROPHILS # (AUTO) 8.9 10^3/uL (1.5-6.6); NEUTROPHILS % (AUTO) 65.7 %; PLT - PLATELET COUNT 479 10^3/uL (130-450); RED BLOOD COUNT 3.33 10^6/uL (4.20-5.40); RED CELL DISTRIBUTION WIDTH 14.9 % (12.0-15.0); WHITE BLOOD COUNT 13.6 x10^3/uL (4.8-10.8)
[2020-02-17 08:30] LABS: CALCIUM 8.7 mg/dL (8.5-10.3); CREATININE 0.7 mg/dL (0.4-1.0); MAGNESIUM 1.8 mg/dL (1.7-2.8); PHOSPHORUS 4.1 mg/dL (2.5-4.6)
[2020-02-17 08:45] LABS: RBC MORPHOLOGY (MULTIPLE) 3+ ANISOCYTOSIS (NORMAL)
[2020-02-17] MEDS ORDERED: METOPROLOL SUCCINATE 25 MG TABLET PO SCH (09:00)
--- NOTE | 2020-02-17 11:30 | Discharge Plan ---
"Discharge Plan for SNF / [facility] - Discharge Plan And Transition Orders Problem Reviewed?: Yes Disposition: 03 SNF DC/Xfer Condition: Stable Allergies and Adverse Reactions: Allergies Allergy/AdvReac Type Severity Reaction Status Date / Time sertraline Allergy Unknown Verified 04/28/19 15:58 Sulfa (Sulfonamide Allergy Edema Verified 04/27/19 06:43 Antibiotics) Health Concerns: You were admitted after a fall and fracture and required orthopedic surgery to correct it. A different Orthopedic surgeon also did an injection into your right knee for bursitis. Followup with PT/OT in SNF, followup with orthopedics office in 2 weeks or early as needed, continue your home Coumadin and recheck PT/INR as needed. You are being discharged to [facility] facility for further physical therapy rehab. You may resume all your usual medications including the Coumadin. Your ECHO study show you have mild to moderate aortic stenosis, and moderate pulmonary hypertension, advise you followup with track car operator as out-pt Your orthostatic hypotension is improved, you can continue PT/OT by PT evaluation. advise you standup slowly, keep hydration, keep to have Compression stocking, prevention of fall. recheck TSH in 4-6 week, your TSH is low and Free T4 is high, your home Synthroid dosage was reduced Plan of Treatment: As above. Care Goals: Improvement in symptoms and stabilization are the goals. Assessment: Patient understands and is agreeable with the plan. - SNF / [facility] Transition Orders Admit to (Facility): [facility] Under the care of (Name): Medical provider of [facility] Discharge Diagnosis: status post of left hip repair, bursitis of right knee, orthostatic hypotension, a fibrillation, hypothyroidism, HLD, Anxiety, Autoimmune Cholangitis, mild to moderate aortic stenosis. Medicare Certification Statement: I certify that Post Hospital [facility] care is medically necessary on a continuing basis for any of the conditions for which she/he is receiving care during hospitalization. Notify PCP of admission and forward orders to primary provider for signature. Weight on admission and: Daily Call PCP immediately if weight increases by: 2 kg Other Notification Orders: Call PCP immediately if patient develops dyspnea, chest pain/tightness or edema. House Bowel Program: Yes Additional Bowel Program Orders: If no BM after 2 days, nurse may give M.O.M. 30ml PO PRN and/or ducolax Supp 1 IA and/or SHANTEL 250mg P.O., and/or senna 1-2 tabs PO. On day 3 nurse may give repeat above order until residents constipation is resolved. Annual Influenza Vaccine (between Dec 21 and July 20): Yes Two-step PPD per [facility] [phone] or approved exception documents: Yes Treatments & Other Orders: You were admitted after a fall and fracture and required orthopedic surgery to correct it. A different Orthopedic surgeon also did an injection into your right knee for bursitis. Followup with PT/OT in SNF, followup with orthopedics office in 2 weeks or early as needed, continue your home Coumadin and recheck PT/INR as needed. You are being discharged to [facility] facility for further physical therapy rehab. You may resume all your usual medications including the Coumadin. Your ECHO study show you have mild to moderate aortic stenosis, and moderate pulmonary hypertension, advise you followup with track car operator as out-pt. Your orthostatic hypotension is improved, you can continue PT/OT by PT evaluation. advise you standup slowly, keep hydration, keep to have Compression stocking, prevention of fall. recheck TSH in 4-6 week, your TSH is low and Free T4 is high, your home Synthroid dosage was reduced Medication Orders: PLEASE REFER TO THE DISCHARGE MEDICATION LIST. Insulin Orders?: No - Medications New Prescriptions: oxyCODONE [Roxicodone] 5 mg PO Q4HR PRN #20 tablet PRN Reason: Pain Ferrous Sulfate [Feosol] 325 mg PO DAILYWM #30 tablet polyethylene glycoL 3350 [Miralax] 17 gm PO DAILY #14 packet Levothyroxine [Synthroid] 100 mcg PO QDAC #30 tablet Calcium Carbonate [Tums (Calcium Carbonate 500mg)] 500 mg PO BID #60 tablet Cholecalciferol [Vitamin D3] 800 unit PO DAILY #60 tablet - Diet Type: Geriatric Texture: Regular Liquids: Thin May have monthly special meal: Yes - Therapies | Activity Therapy: Evaluation | Treat if indicated: PT, OT Rehabilitation Potential: Maximize functional status Activity: Activity as Tolerated"
--- NOTE | 2020-02-17 11:47 | DISCHARGE SUMMARY ---
"Discharge Summary Admit Date: 02/10/20 Discharge Date: 02/17/20 Discharging Provider: Armando Bustos Primary Care Provider: Dr. Engel Condition at Discharge: Stable Discharge Disposition: SNF DC/Xfer Discharge Facility Name: [facility] - DIAGNOSES Discharge Diagnoses with Status of Each Condition: (1) Orthostatic hypotension improved. pt can participate PT/OT training. pt was educated slow standing up, keep hydration, and wear stock compression, and prevention of fall (2) Closed left hip fracture pt was d/c to [facility]. Patient pain is under good control, physical therapist and occupational therapist evaluated and treated for pt, Continue follow-up with orthopedic surgeon. pt was prescribed Calcium and Vitamin D3, and pain meds. pt take her home meds Coumadin. (3) Bursitis of right knee pt was consulted by Dr. Moreno and had injection of lidocaine plus steroids. pt report her knee has greatly improved symptoms and Dr. Moreno does not recommend a knee brace but to keep moving this joint. (4) Postoperative anemia improved, hemoglobin is 10.1, continue iron PO (5) History of atrial fibrillation HR is controlled. Patient already restarted with Coumadin, continue PT/INR monitor (6) Hypertension stable, We will hold losartan For orthostatic hypotension, continue metoprolol (7) Hypothyroidism TSH was low, free T4 is high, We reduced Synthroid to 100 mcg daily. 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 Steroid use could explained her elevated WBC - HPI History of Present Illness: refer Dr. Reis's HPI on 02/10/2020 Patient is an 84-year-old female with history of atrial fibrillation on Coumadin who presented to the ED after a mechanical fall. She had walked out of the [employer] shop where she had her hair done and her had just pulled the car up to the curb when she tried to step off the curb and lost her balance. She did not hit her head or pass out. Initially her called EMS but after a while of no response they asked to passerby's for assistance. They lifted her and put her in the car. Her intention at the time was just to go home. However she noticed she could not move her left leg so asked her to bring her to the ED. Work-up in the ED included x-ray of the left leg which showed a displaced angulated femoral neck fracture. Consequently she was presented for admission for further tr eatment. She was also found to have an INR of 3.1 in the ED. At bedside she is awake alert and oriented x4. She rates her pain 6 out of 10. She denies chest pain, dyspnea, fever or chills. She reports feeling nauseous after receiving Dilaudid for pain. The rest of her history is unremarkable. - CONSULTS | PROCEDURES Consultations: Dr. Lopes Procedures: Left hip hemiarthroplasty - HOSPITAL COURSE Hospital Course: pt was admitted for evaluation of her fall. pt was found to have left hip fracture. Dr. Lopes did left hip repair procedure for pt. Then pt had PT/OT evaluation and treatment. Pt also had orthostatic hypotension. after pt's one of BP meds Losartan was hold, pt weared stock compression, enough hydration in hospital, slowly let pt standing up, pt's orthostatic hypotension was improved. pt also continue participate PT/OT treatment without issue. pt was d/c to [facility] continue training, and followup with orthopedics office in two weeks or early as needed. - ALLERGIES Allergies/Adverse Reactions: Allergies Allergy/AdvReac Type Severity Reaction Status Date / Time sertraline Allergy Unknown Verified 04/28/19 15:58 Sulfa (Sulfonamide Allergy Edema Verified 04/27/19 06:43 Antibiotics) - MEDICATIONS Home Medications: Ambulatory Orders Medication Instructions Recorded Confirmed Budesonide [Budesonide EC] 3 mg PO DAILY 10/12/14 02/10/20 Omeprazole [PriLOSEC] 20 mg PO DAILY 10/12/14 02/10/20 Simvastatin 5 mg PO QPM 10/12/14 02/10/20 Warfarin Sodium [Coumadin] 6 mg PO TUFR@2100 10/12/14 02/10/20 Garlic 1 tab PO DAILY 04/27/19 02/10/20 Lactobacillus Acidophilus 1 tab PO DAILY 04/27/19 02/10/20 [Probiotic Acidophilus] [place]-3/Dha/Epa/Fish Oil [Fish Oil 3,000 mg PO DAILY 04/27/19 02/10/20 1,000 mg Softgel] Metoprolol Succinate [Toprol Xl] 25 mg PO DAILY 04/28/19 02/10/20 Warfarin Sodium 3 mg PO SUMOWETHSA@2100 04/28/19 02/10/20 ursodioL [Jordon 250] 250 mg PO TID 04/28/19 02/12/20 Prednisone 1 mg PO DAILY 01/07/20 02/10/20 ALPRAZolam [Alprazolam] 0.25 mg PO TID PRN #0 02/14/20 02/10/20 Calcium Carbonate [Tums (Calcium 500 mg PO BID #60 tablet 02/14/20 Carbonate 500mg)] Cholecalciferol [Vitamin D3] 800 unit PO DAILY #60 tablet 02/14/20 Ferrous Sulfate [Feosol] 325 mg PO DAILYWM #30 tablet 02/14/20 Levothyroxine [Synthroid] 100 mcg PO QDAC #30 tablet 02/14/20 oxyCODONE [Roxicodone] 5 mg PO Q4HR PRN #20 tablet 02/14/20 polyethylene glycoL 3350 [Miralax] 17 gm PO DAILY #14 packet 02/14/20 - PHYSICAL EXAM AT DISCHARGE General Appearance: positive: No acute distress, Alert, Lethargic Eyes Bilateral: positive: Normal inspection, PERRL, No lid inflammation ENT: positive: ENT inspection nml, No signs of dehydration. negative: Purulent nasal drainage Neck: positive: Nml inspection, Thyroid nml, Trachea midline. negative: Thyromegaly, Lymphadenopathy (R), Lymphadenopathy (L), Tracheal deviation Respiratory: positive: Chest non-tender, No respiratory distress, Breath sounds nml. negative: Wheezes, Rales, Rhonchi Cardiovascular: positive: Regular rate & rhythm, No murmur. negative: Tachycardia, Bradycardia, Systolic murmur, Diastolic murmur Peripheral Pulses: positive: 2+ Abdomen: positive: Non-tender, Nml bowel sounds, No distention. negative: Tenderness, Guarding, Rebound Back: positive: Nml inspection Skin: positive: Color nml, No rash, Warm, Dry. negative: Cyanosis, Diaphoresis, Pallor Extremities: positive: Non-tender, Nml appearance. negative: Calf tenderness Neurologic/Psychiatric: positive: Oriented x3, Sensation nml, Mood/affect nml. negative: Weakness, Sensory loss, Facial droop, Slurred/abnml speech, Depressed mood/affect - LABS Result Diagrams: 02/17/20 08:09 02/17/20 08:09 - SEPSIS Current Stage of Sepsis: Ruled out - FOLLOW UP Follow Up: You were admitted after a fall and fracture and required orthopedic surgery to correct it. A different Orthopedic surgeon also did an injection into your right knee for bursitis. Followup with PT/OT in SNF, followup with orthopedics office in 2 weeks or early as needed, continue your home Coumadin and recheck PT/INR as needed. You are being discharged to [facility] for further physical therapy rehab. You may resume all your usual medications including the Coumadin. Your ECHO study show you have mild to moderate aortic stenosis, and moderate pulmonary hypertension, advise you followup with investor relations coordinator as out-pt Your orthostatic hypotension is improved, you can continue PT/OT by PT evaluation. advise you standup slowly, keep hydration, keep to have Compression stocking, prevention of fall. recheck TSH in 4-6 week, your TSH is low and Free T4 is high, your home Synthroid dosage was reduced - TIME SPENT Time Spent in Discharge (Minutes): 30"
[2020-02-17 13:46] VITALS: BP 161/55
--- NOTE | 2020-03-19 21:32 | OPERATIVE REPORT ---
DATE OF SERVICE: 03/19/2020 Physician: Anthony Moreno MD DATE OF PROCEDURE: 02/14/2020. PREOPERATIVE DIAGNOSIS: Right knee pes anserine bursitis. POSTOPERATIVE DIAGNOSIS: Right knee pes anserine bursitis. PROCEDURE PERFORMED: Steroid injection into the right pes anserinus bursa of the knee. SURGEON: Anthony Moreno MD. DESCRIPTION OF PROCEDURE: After discussion of the presumed diagnosis and treatment options to the santiago kat, she wishes to proceed with a steroid injection to her symptomatic pes anserine bursal sac. Cathy cloud was aware of treatment options as well as potential complications of this procedure. After alcohol skin preparation over the anteromedial aspect of the knee in the area of the pes anseri nus bursa sac, we used a 22-gauge needle to penetrate the skin and entered the vicinity of the pes an serine. This also corresponded with the area of maximal tenderness on palpation around the patient's knee preprocedure. Once we entered the pes anserine bursa, we proceeded to infuse the sac with a com bination solution. This injected easily, which led to the confirmation that we were likely in the bu rsal sac. The steroid injection was comprised 8 mL of 0.5% Marcaine without epinephrine and 1 mL of Kenalog 40 mg/mL solution. The patient tolerated the injection well. Band-Aid were used to apply ov er the injection site. TD: 03/19/2020 12:48
== END 2020-02-17 13:46 | DRG 522 ==
LOC: ED 16:54 → MS2 18:34
PROVIDERS: ADMIT Internal Medicine; ATTEND Nurse Practitioner Gerontology
PROC: 0SRS01A Replacement of Left Hip Joint, Femoral Surface with Metal Synthetic Substitute, Uncemented, Open Approach (ICD-10-PCS; principal; 2020-02-10)
PROC: 30233K1 Transfusion of Nonautologous Frozen Plasma into Peripheral Vein, Percutaneous Approach (ICD-10-PCS; 2020-02-11)
PROC: 3E0U33Z Introduction of Anti-inflammatory into Joints, Percutaneous Approach (ICD-10-PCS; 2020-02-14)
PROC: 3E0U3BZ Introduction of Anesthetic Agent into Joints, Percutaneous Approach (ICD-10-PCS; 2020-02-14)
DX: S72.002A Fracture of unspecified part of neck of left femur, initial encounter for closed fracture (principal); I48.20 Chronic atrial fibrillation, unspecified; K83.09 Other cholangitis; I48.91 Unspecified atrial fibrillation; W10.1XXA Fall (on)(from) sidewalk curb, initial encounter; E78.00 Pure hypercholesterolemia, unspecified; Y92.480 Sidewalk as the place of occurrence of the external cause; D50.9 Iron deficiency anemia, unspecified; I10 Essential (primary) hypertension; E03.9 Hypothyroidism, unspecified; I35.0 Nonrheumatic aortic (valve) stenosis; I27.20 Pulmonary hypertension, unspecified; I95.1 Orthostatic hypotension; M70.51 Other bursitis of knee, right knee; E78.5 Hyperlipidemia, unspecified; F41.9 Anxiety disorder, unspecified; R79.1 Abnormal coagulation profile; M19.90 Unspecified osteoarthritis, unspecified site; R32 Unspecified urinary incontinence; Z20.828 Contact with and (suspected) exposure to other viral communicable diseases; Z96.649 Presence of unspecified artificial hip joint; Z96.641 Presence of right artificial hip joint; Z79.01 Long term (current) use of anticoagulants; Z79.52 Long term (current) use of systemic steroids; Z79.899 Other long term (current) drug therapy; Z86.73 Personal history of transient ischemic attack (TIA), and cerebral infarction without residual deficits
CPT/HCPCS: 36415; 70450; 71045; 73501; 73502; 80048; 80053; 81001; 82607; 82728; 83540; 83615; 83690; 83735; 84100; 84439; 84443; 84466; 84484; 85014; 85018; 85025; 85045; 85610; 85730; 86850; 86900; 86901; 93005; 93306; 96374; 97110; 97162; 97165; 97530; 99283; 99285; A9270; J0131; J1170; J7120; J7512; P9017; U0004

== ENCOUNTER 2020-02-17 13:47 | Outpatient (CLI) | payer MEDICARE | END 2020-02-17 13:48 | LOC: EMS 13:47 | PROVIDERS: ATTEND Surgery | DX: S72.002D Fracture of unspecified part of neck of left femur, subsequent encounter for closed fracture with routine healing (principal) | CPT/HCPCS: A0425; A0428 ==

== ENCOUNTER 2020-03-16 14:04 | Outpatient (CLI) | payer MEDICARE | END 2020-03-16 14:05 | disposition critical access hospital (66) | LOC: EMS 14:04 | PROVIDERS: ATTEND Surgery | DX: M54.5 Low back pain (principal); M79.605 Pain in left leg | CPT/HCPCS: A0425; A0429 ==

== ENCOUNTER 2020-03-16 14:36 | Emergency (ER) | payer MEDICARE ==
[2020-03-16] MEDS ORDERED: DEXAMETHASONE 10 MG/ML VIAL PO STA (14:55)
[2020-03-16] MEDS ORDERED: BUFFERED LIDOCAINE 10 ML SYRINGE SUBQ STA (14:55)
[2020-03-16] MEDS ORDERED: CHERRY SYRUP 10 ML UDC PO ONE (14:55)
[2020-03-16] MEDS ORDERED: HYDROcod/ACETAM 5/325 MG TABLET PO STA (14:56)
--- NOTE | 2020-03-16 15:04 | ED Physician Documentation ---
PD HPI LOWER EXT INJURY - Stated complaint Stated Complaint: GLF - Chief complaint Chief Complaint: Trauma Ext - History obtained from History obtained from: Patient - History of Present Illness PD HPI LOW EXT INJURY LOCATION: Left, Lower leg Type of injury: Fall Where injury occurred: Home Timing - onset: Today Timing - duration: Minutes Timing - details: Abrupt onset, Still present Improved by: Rest, Immobilization Worsened by: Moving, Palpating Associated symptoms: No: Weakness, Numbness, Tingling, Swelling Contributing factors: Anticoagulated Similar symptoms before: Diagnosis (thin skin tear) Recently seen: Surgery, Other (discharged from rehab after a hip fracture today after one month in rehab from hip replacement .) - Additional information Additional information: 84-year-old female was discharged today from [facility] after hip rehabilitation after a fracture at the end of January. She was walking into her house when she was unable to lift her left leg up high enough to clear the step and she fell forward she has lacerated her right calf and she is complaining of some back pain that is been present for more than 2 months and preceded the fracture of her hip. Review of Systems Constitutional: denies: Fever Respiratory: denies: Cough GI: denies: Vomiting : denies: Frequency PD PAST MEDICAL HISTORY - Past Medical History Cardiovascular: Hypertension, High cholesterol, Atrial fibrillation, Other Respiratory: None Neuro: CVA Endocrine/Autoimmune: HyPOthyroidism GI: None : Incontinence Psych: None Musculoskeletal: Osteoarthritis Derm: Herpes zoster - Past Surgical History Past Surgical History: Yes General: Cholecystectomy Ortho: Hip replacement HEENT: Tonsil/Adenoidectomy - Present Medications Home Medications: Ambulatory Orders Medication Instructions Recorded Confirmed Budesonide [Budesonide EC] 3 mg PO DAILY 10/12/14 03/16/20 Omeprazole [PriLOSEC] 20 mg PO DAILY 10/12/14 03/16/20 Simvastatin 5 mg PO QPM 10/12/14 03/16/20 Warfarin Sodium [Coumadin] 6 mg PO TUFR@2100 10/12/14 03/16/20 Garlic 1 tab PO DAILY 04/27/19 03/16/20 Lactobacillus Acidophilus 1 tab PO DAILY 04/27/19 03/16/20 [Probiotic Acidophilus] [place]-3/Dha/Epa/Fish Oil [Fish Oil 3,000 mg PO DAILY 04/27/19 03/16/20 1,000 mg Softgel] Metoprolol Succinate [Toprol Xl] 25 mg PO DAILY 04/28/19 03/16/20 Warfarin Sodium 3 mg PO SUMOWETHSA@2100 04/28/19 03/16/20 ursodioL [Jordon 250] 250 mg PO TID 04/28/19 03/16/20 Prednisone 1 mg PO DAILY 01/07/20 03/16/20 ALPRAZolam [Alprazolam] 0.25 mg PO TID PRN #0 02/14/20 03/16/20 Calcium Carbonate [Tums (Calcium 500 mg PO BID #60 tablet 02/14/20 03/16/20 Carbonate 500mg)] Cholecalciferol [Vitamin D3] 800 unit PO DAILY #60 tablet 02/14/20 03/16/20 Ferrous Sulfate [Feosol] 325 mg PO DAILYWM #30 tablet 02/14/20 03/16/20 Levothyroxine [Synthroid] 100 mcg PO QDAC #30 tablet 02/14/20 03/16/20 polyethylene glycoL 3350 [Miralax] 17 gm PO DAILY #14 packet 02/14/20 03/16/20 HYDROcod/ACETAM 5/325 [[place] 5/325] 1 each PO Q6HR PRN #14 tablet 03/16/20 - Allergies Allergies/Adverse Reactions: Allergies Allergy/AdvReac Type Severity Reaction Status Date / Time sertraline Allergy Unknown Verified 03/16/20 14:53 Sulfa (Sulfonamide Allergy Edema Verified 03/16/20 14:53 Antibiotics) - Social History Does the pt smoke?: No Smoking Status: Never smoker Does the pt drink ETOH?: No Does the pt have substance abuse?: No - Immunizations Immunizations are current?: Yes - POLST Patient has POLST: No POLST Status: Full Code PD ED PE NORMAL - Vitals Vital signs reviewed: Yes (tachy and hypertensive) - General General: Alert and oriented X 3, No acute distress, Well developed/nourished - HEENT HEENT: Atraumatic, PERRL - Neck Neck: Supple, no meningeal sign, No bony TTP - Cardiac Cardiac: RRR, No murmur - Respiratory Respiratory: No respiratory distress, Clear bilaterally - Abdomen Abdomen: Normal bowel sounds, Soft, Non tender, Non distended, No organomegaly - Back Back: No CVA TTP, No spinal TTP, Other (There is tenderness to palpation of the lower lumbar paraspinous muscles bilaterally and no midline tenderness. ) - Derm Derm: Normal color, Warm and dry, No rash - Extremities Extremities: No tenderness to palpate, No edema - Neuro Neuro: Alert and oriented X 3, flight crew time clerk 2-12 intact, No motor deficit, No sensory deficit, Normal speech Eye Opening: Spontaneous Motor: Obeys Commands Verbal: Oriented GCS Score: 15 Results - Vitals Vitals: Vital Signs - 24 hr 03/16/20 03/16/20 03/16/20 19:11 21:05 21:17 Temperature 36.1 C L 36.1 C L Heart Rate 105 H 93 102 H Respiratory 16 16 16 Rate Blood Pressure 153/81 H 110/52 L 110/52 L O2 Saturation 96 94 98 03/16/20 03/16/20 03/17/20 22:00 23:43 02:51 Temperature 36.3 C L Heart Rate 102 H 98 93 Respiratory 16 16 14 Rate Blood Pressure 162/69 H 162/69 H 133/77 H O2 Saturation 96 97 98 03/17/20 03/17/20 03/17/20 03:00 05:13 06:26 Temperature 36.1 C L Heart Rate 103 H 93 91 Respiratory 16 16 16 Rate Blood Pressure 144/73 H 112/66 144/63 H O2 Saturation 96 97 95 Oxygen O2 Source Room air - Labs Labs: Laboratory Tests 03/17/20 03/17/20 03/17/20 07:46 07:46 10:00 WBC 13.3 H RBC 3.82 L Hgb 11.5 L Hct 37.1 MCV 97.1 MCH 30.1 MCHC 31.0 L RDW 15.5 H Plt Count 566 H MPV 10.0 Neut # (Auto) Not Reportable Lymph # (Auto) Not Reportable [place] # (Auto) Not Reportable Eos # (Auto) Not Reportable Baso # (Auto) Not Reportable Absolute Nucleated RBC Not Reportable Total Counted 100 Band Neuts % (Manual) 0 Abnorm Lymph % (Manual) 0 Metamyelocytes % 1 H Nucleated RBC % Not Reportable Neutrophils # (Manual) 12.2 H Lymphocytes # (Manual) 0.8 L Monocytes # (Manual) 0.1 Eosinophils # (Manual) 0.0 Basophils # (Manual) 0.0 Nucleated RBCs 1 Differential Comment MANUAL DIFFERENTIAL WBC Morphology 2+ VACUOLATION Platelet Estimate INCREASED (>450,000) Platelet Morphology NORMAL APPEARANCE RBC Morph Micro Appear RARE SCHISTOCYTES Sodium 134 L Potassium 4.5 Chloride 101 Carbon Dioxide 23 Anion Gap 10.0 BUN 17 Creatinine 0.6 Estimated GFR (MDRD) 95 Glucose 118 H Lactic Acid Calcium 8.9 Total Bilirubin 1.0 AST 88 H ALT 84 H Alkaline Phosphatase 249 H Total Creatine Kinase CK-MB (CK-2) Total Protein 5.4 L Albumin 2.9 L Globulin 2.5 Albumin/Globulin Ratio 1.2 Lipase 25 Urine Color YELLOW Urine Clarity SL. CLOUDY Urine pH 5.5 Ur Specific [place] 1.025 Urine Protein 30 H Urine Glucose (UA) NEGATIVE Urine Ketones NEGATIVE Urine Occult Blood SMALL H Urine Nitrite NEGATIVE Urine Bilirubin NEGATIVE Urine Urobilinogen 0.2 (NORMAL) Ur Leukocyte Esterase TRACE H Urine RBC None Seen Urine WBC 6-10 H Ur Squamous Epith Cells NONE SEEN Urine Bacteria Many H Ur Microscopic Review INDICATED Urine Culture Comments INDICATED 03/17/20 03/17/20 03/17/20 11:29 11:29 11:30 WBC RBC Hgb Hct MCV MCH MCHC RDW Plt Count MPV Neut # (Auto) Lymph # (Auto) [place] # (Auto) Eos # (Auto) Baso # (Auto) Absolute Nucleated RBC Total Counted Band Neuts % (Manual) Abnorm Lymph % (Manual) Metamyelocytes % Nucleated RBC % Neutrophils # (Manual) Lymphocytes # (Manual) Monocytes # (Manual) Eosinophils # (Manual) Basophils # (Manual) Nucleated RBCs Differential Comment WBC Morphology Platelet Estimate Platelet Morphology RBC Morph Micro Appear Sodium Potassium Chloride Carbon Dioxide Anion Gap BUN Creatinine Estimated GFR (MDRD) Glucose Lactic Acid 1.4 Calcium Total Bilirubin AST ALT Alkaline Phosphatase Total Creatine Kinase 48 CK-MB (CK-2) 2.3 Total Protein Albumin Globulin Albumin/Globulin Ratio Lipase Urine Color Urine Clarity Urine pH Ur Specific [place] Urine Protein Urine Glucose (UA) Urine Ketones Urine Occult Blood Urine Nitrite Urine Bilirubin Urine Urobilinogen Ur Leukocyte Esterase Urine RBC Urine WBC Ur Squamous Epith Cells Urine Bacteria Ur Microscopic Review Urine Culture Comments - Rads (name of study) lumbar spine Radiology: Prelim report reviewed (Impression: 1. Evaluation spine limited secondary to severe osteopenia. L1 compression fracture of indeterminate age. Multilevel degenerative disc disease. Multilevel facet arthropathy. No acute osseous lesion. If there is continued clinical concern for pathology, then MRI or CT should be cons), EMP read indepedently, See rad report Procedures - Laceration (location) left calf Length in cm: 15 Wound type: Curved, Flap, Superficial, Clean Neurovascular status: Sensory intact, Motor intact, Vascular intact Anesthesia: Lidocaine 1%, With bicarb Wound Preparation: Hibiclens, Irrigated copiously NS, Wound explored, To the base, Multiple flaps aligned Skin layer closure: Nylon, Dermabond, Steri strips, Interrupted, Size #-0 - enter number (5-0) Other: Patient tolerated well, No complications, Neurovascular intact, Dressing applied, Tetanus UTD Complexity: Simple PD MEDICAL DECISION MAKING - ED course Complexity details: reviewed old records, reviewed results, re-evaluated patient, considered differential, d/w patient ED course: 84-year-old female who is fallen on her way into her home just when she was getting out of rehab. She has had a large laceration to the left calf that is superficial to the skin there is an another laceration underneath the skin that appears to be healing and she indicates that was from the original fall when she broke her hip. That appears to be still healing and is deep. The fat under the skin has a defect. She tolerated the repair and we did do an x-ray of her back showing an L1 compression fracture that is new as of the beginning of this year when comparing to a CT done in April. She has some improvement in her back pain with [place] here and she is impressed with this working better than the oxycodone. The patient has had a fall on her way into her home directly from rehabilitation. She is unsteady on her feet we did attempt a road test here in the emergency department and she appeared unsafe for discharge to home. She is left in the emergency department overnight to see the social media editor in the morning. I have asked the patient to consider in-home help or return to [place]. Overnight the patient had few complaints but still feels weak and dizzy. We did not initiate a work up of this patient yesterday on arrival and this morning we are re-evaluating and blood work and urinalysis are obtained and the patient is found to be dehydrated on interrogation of the IVC and an IV and saline are ordered. She is found to have urinary tract infection on a urine specimen that does make the grade for culture. This patient has failed discharge from rehabilitation and is an unsafe discharge from the emergency department. I am asking our hospitalist to put the patient into the hospital for treatment of urinary tract infection, dehydration and compression fracture as well as weakness. After extensive review the admission is rejected by utilization review as not meeting criteria for admission. She is still not a safe discharge from the ED and today she has agreed to consider a SNF. Today is a holiday and there is no response from [facility]. She is boarded in the ED to await another day for placement. In the intervening time we will treat the UTI with oral antibiotic. AT shift change care is turned over to Dr. Quarles with expectation of re- evaluation tomorrow for potential SNF placement or if improved to home. PT consult in am Departure - Departure Clinical Impression: Dehydration, Weakness Compression fracture of L1 vertebra Qualifiers: Encounter type: initial encounter Qualified Code(s): S32.010A - Wedge compression fracture of first lumbar vertebra, initial encounter for closed fracture Laceration of calf Qualifiers: Encounter type: initial encounter Laterality: left Qualified Code(s): S81.812A - Laceration without foreign body, left lower leg, initial encounter Urinary tract infection Qualifiers: Urinary tract infection type: acute cystitis Hematuria presence: without hematuria Qualified Code(s): N30.00 - Acute cystitis without hematuria Condition: Stable Instructions: ED Fx Comp Vertebral, ED Laceration Ext Skin Glue, ED Laceration Ext Sutr Stap Tape Follow-Up: William Hassan DO [Primary Care Provider] - Prescriptions: HYDROcod/ACETAM 5/325 [[place] 5/325] 1 each PO Q6HR PRN #14 tablet PRN Reason: Pain
--- NOTE | 2020-03-16 16:30 | XRAY Report ---
PROCEDURE: Lumbar Spine 2 View INDICATIONS: low back pain X 2 months. TECHNIQUE: 2 views of the lumbar spine were acquired. COMPARISON: None. FINDINGS: Bones: Evaluation of spine limited secondary to severe osteopenia. Loss of height noted in the L1 maricarmen tebral body compatible with compression fracture of indeterminate age. L1 compression fracture result s in approximately 60% loss of normal vertebral body height. Schmorl's node noted in the superior end plate of the L3 vertebral body. 5 [id number] vertebrae are present. There is mild L4 to-L3 retr olisthesis. No vertebral body compression fractures. No suspicious bony lesions. Moderate L2-L3 dege nerative disc disease. Mild L1-L2, L2-3-L4, L4-L5 and L5-S1 degenerative disc disease. Mild facet art hropathy noted throughout the lumbar spine. Partially visualized bilateral hip arthroplasties. Soft tissues: Overlying bowel gas pattern is normal. No suspicious soft tissue calcifications. IMPRESSION: 1. Evaluation spine limited secondary to severe osteopenia. 2. L1 compression fracture of indeterminate age. 3. Multilevel degenerative disc disease. 4. Multilevel facet arthropathy. 5. No acute osseous lesion. If there is continued clinical concern for pathology, then MRI or CT shou ld be considered for further evaluation. Reviewed by: Jeanne Ruiz MD, PhD on 03/16/2020 4:29 PM PST Approved by: Jeanne Ruiz MD, PhD on 03/16/2020 4:29 PM PST Station ID: [id number]
[2020-03-16] MEDS ORDERED: ALPRAZolam 0.25 MG TABLET PO STA (22:12)
[2020-03-17 07:54] LABS: BASOPHILS % (AUTO) 0.4 %; EOSINOPHILS % (AUTO) 2.9 %; HGB - HEMOGLOBIN 11.5 g/dL (12.0-16.0); MEAN CORPUSCULAR HEMOGLOBIN 30.1 pg (27.0-31.0); MEAN CORPUSCULAR VOLUME 97.1 fL (81.0-99.0); MONOCYTES % (AUTO) 4.7 %; NEUTROPHILS % (AUTO) 78.9 %; PLT - PLATELET COUNT 566 10^3/uL (130-450); RED BLOOD COUNT 3.82 10^6/uL (4.20-5.40); RED CELL DISTRIBUTION WIDTH 15.5 % (12.0-15.0); WHITE BLOOD COUNT 13.3 x10^3/uL (4.8-10.8)
[2020-03-17 07:57] LABS: ABNORMAL LYMPHS % (MANUAL) 0 %; BAND NEUTROPHILS % (MANUAL) 0 %
[2020-03-17] MEDS ORDERED: SODIUM CHLORIDE 0.9% 1,000 ML IV STA ×2 (08:00→10:18)
[2020-03-17 08:29] LABS: LYMPHOCYTES # (MANUAL) 0.8 10^3/uL (1.5-3.5); LYMPHOCYTES % (MANUAL) 6 %; METAMYELOCYTES % (MANUAL) 1 %; MONOCYTES # (MANUAL) 0.1 10^3/uL (0.0-1.0)
[2020-03-17 08:31] LABS: DIFFERENTIAL COMMENT MANUAL DIFFERENTIAL; PLATELET ESTIMATE, MANUAL INCREASED (>450,000) (NORMAL); PLATELET MORPHOLOGY NORMAL APPEARANCE (NORMAL)
[2020-03-17 08:33] LABS: ALBUMIN 2.9 g/dL (3.2-5.5); ALBUMIN/GLOBULIN RATIO 1.2 (1.0-2.2); CALCIUM 8.9 mg/dL (8.5-10.3); CREATININE 0.6 mg/dL (0.4-1.0); TOTAL PROTEIN 5.4 g/dL (6.7-8.2)
--- NOTE | 2020-03-17 09:27 | XRAY Report ---
PROCEDURE: Chest 1 View X-Ray INDICATIONS: weakness TECHNIQUE: One view of the chest was acquired. COMPARISON: 02/10/2020, 04/27/2019 FINDINGS: Surgical changes and devices: None. Lungs and pleura: On the semiupright images, no large pneumothorax or large pleural effusions can be seen. No focal infiltrates are seen. Low lung volumes can be seen, causing a crowded appearance to the lung markings. Mediastinum: The aorta is prominent and tortuous. The cardiac contours are within normal limits. Bones and chest wall: No suspicious bony lesions. Age-appropriate degenerative changes are seen. Overlying soft tissues appear unremarkable. IMPRESSION: Limited portable chest examination, without an acute abnormality identified. Reviewed by: Eleazar Block MD on 03/17/2020 8:25 AM [facility] Approved by: Eleazar Block MD on 03/17/2020 8:25 AM [facility] Station ID: [id number]
[2020-03-17 10:25] LABS: BILIRUBIN,URINE NEGATIVE (NEGATIVE); GLUCOSE, URINE (UA) NEGATIVE (NEGATIVE); KETONES,URINE (UA) NEGATIVE (NEGATIVE); LEUKOCYTE ESTERASE, URINE TRACE (NEGATIVE); NITRITE,URINE NEGATIVE (NEGATIVE); OCCULT BLOOD,URINE SMALL (NEGATIVE); PH,URINE 5.5 PH (5.0-7.5); PROTEIN,URINE 30 mg/dL (NEGATIVE); UROBILINOGEN,URINE 0.2 (NORMAL) E.U./dL (NORMAL)
[2020-03-17 10:26] LABS: CLARITY,URINE SL. CLOUDY (CLEAR)
[2020-03-17 10:32] LABS: BACTERIA,URINE Many /HPF (None Seen); RBC,URINE None Seen /HPF (0-5); SQUAMOUS EPITHELIAL CELL,UR NONE SEEN (<= Few)
[2020-03-17] MEDS ORDERED: cefTRIAXone 1 GM in SODIUM CHLORIDE 0.9% MINIBAG 100 ML IV STA (10:37)
[2020-03-17] MEDS ORDERED: NITROFURANTOIN MACRO 100 MG CAPSULE PO STA (13:59)
[2020-03-17] MEDS ORDERED: HYDROcod/ACETAM 5/325 MG TABLET PO STA (14:14)
[2020-03-17] MEDS ORDERED: ALPRAZolam 0.25 MG TABLET PO STA ×2 (15:45→21:06)
[2020-03-18] MEDS ORDERED: HYDROcod/ACETAM 5/325 MG TABLET PO STA ×2 (05:29→16:53)
[2020-03-18] MEDS ORDERED: NITROFURANTOIN MACRO 100 MG CAPSULE PO STA (05:48)
[2020-03-18] MEDS ORDERED: ALPRAZolam 0.25 MG TABLET PO PRN (08:08)
--- NOTE | 2020-03-18 08:44 | ED Physician Documentation ---
ED Addendum - Addendum Addendum: 03/18/20 08:44 Patient signed out to me awaiting social work evaluation this morning for possible placement. Her regular home medications were ordered. INR was checked. INR is 1.4. Patient in no acute distress this morning.
[2020-03-18] MEDS ORDERED: BUDESONIDE 3 MG CAPSULE PO SCH (09:00)
[2020-03-18] MEDS ORDERED: NITROFURANTOIN MACRO 100 MG CAPSULE PO SCH ×2 (09:00→17:00)
[2020-03-18] MEDS ORDERED: WARFARIN 1 MG TABLET PO SCH ×2 (09:00)
[2020-03-18] MEDS ORDERED: WARFARIN 5 MG TABLET PO SCH (09:00)
[2020-03-18] MEDS ORDERED: METOPROLOL SUCCINATE 25 MG TABLET PO SCH (10:00)
[2020-03-18 13:43] LABS: C. PNEUMONIAE- RESP PCR PANEL NOT DETECTED
[2020-03-18 14:55] LABS: BASOPHILS # (AUTO) 0.1 10^3/uL (0.0-0.1); BASOPHILS % (AUTO) 0.7 %; EOSINOPHILS # (AUTO) 0.3 10^3/uL (0.0-0.7); EOSINOPHILS % (AUTO) 1.9 %; HGB - HEMOGLOBIN 11.1 g/dL (12.0-16.0); LYMPHOCYTES # (AUTO) 2.3 10^3/uL (1.5-3.5); LYMPHOCYTES % (AUTO) 16.5 %; MEAN CORPUSCULAR HEMOGLOBIN 30.3 pg (27.0-31.0); MEAN CORPUSCULAR HGB CONC 32.2 g/dL (32.0-36.0); MEAN CORPUSCULAR VOLUME 94.3 fL (81.0-99.0); MEAN PLATELET VOLUME 9.2 fL (7.9-10.8); MONOCYTES # (AUTO) 1.4 10^3/uL (0.0-1.0); NEUTROPHILS # (AUTO) 9.5 10^3/uL (1.5-6.6); NEUTROPHILS % (AUTO) 69.1 %; PLT - PLATELET COUNT 603 10^3/uL (130-450); RED BLOOD COUNT 3.66 10^6/uL (4.20-5.40); RED CELL DISTRIBUTION WIDTH 15.5 % (12.0-15.0); WHITE BLOOD COUNT 13.7 x10^3/uL (4.8-10.8)
--- NOTE | 2020-03-18 14:56 | ED Physician Documentation ---
ED Addendum - Addendum Addendum: 03/18/20 14:55 EKG 1400 - 104 sinus tachycardia, normal axis, normal QRS, normal ST segments.
[2020-03-18 15:09] LABS: ALBUMIN 3.1 g/dL (3.2-5.5); ALBUMIN/GLOBULIN RATIO 1.1 (1.0-2.2); BILIRUBIN,TOTAL 0.4 mg/dL (0.2-1.0); CALCIUM 8.6 mg/dL (8.5-10.3); CREATININE 0.7 mg/dL (0.4-1.0); TOTAL PROTEIN 5.9 g/dL (6.7-8.2)
--- NOTE | 2020-03-18 15:56 | ED Physician Documentation ---
ED Addendum - Addendum Addendum: 03/18/20 15:55 84-year-old woman turned over to me. Briefly she had a recent rehab stay after hip fracture. She lacerated her calf and is here with a UTI. Social work has been working extensively with her, no respite beds available due to Covid. Patient not willing to sign an ABN to stay in the hospital. Offered to continue to let her board in the emergency department which she declined. She feels like she will be okay at home. Home health care will start tomorrow.
[2020-03-18 18:03] VITALS: BP 175/92
[2020-03-19] MEDS ORDERED: LEVOTHYROXINE 100 MCG TABLET PO SCH (07:00)
[2020-03-19] MEDS ORDERED: predniSONE 1 MG TABLET PO SCH (08:00)
[2020-03-19] MEDS ORDERED: WARFARIN 1 MG TABLET PO SCH (08:11)
== END 2020-03-18 18:28 | disposition home or self-care (01) ==
LOC: EDUNIT# → ED 14:36
DX: S32.010A Wedge compression fracture of first lumbar vertebra, initial encounter for closed fracture (principal); S81.812A Laceration without foreign body, left lower leg, initial encounter; W10.8XXA Fall (on) (from) other stairs and steps, initial encounter; Y92.008 Other place in unspecified non-institutional (private) residence as the place of occurrence of the external cause; Y93.01 Activity, walking, marching and hiking; N30.00 Acute cystitis without hematuria; E86.0 Dehydration; R00.0 Tachycardia, unspecified; Z20.828 Contact with and (suspected) exposure to other viral communicable diseases; I10 Essential (primary) hypertension; I48.91 Unspecified atrial fibrillation; Z79.01 Long term (current) use of anticoagulants; Z91.81 History of falling; R53.1 Weakness; R26.81 Unsteadiness on feet
CPT/HCPCS: 12005; 36415; 71045; 72100; 80053; 81001; 82550; 82553; 83605; 83690; 85025; 85610; 87086; 87181; 87631; 93005; 99284; A9270; 0202U; 81003

== ENCOUNTER 2020-03-30 08:00 | Outpatient (CLI) | payer MEDICARE | END 2020-03-30 23:59 | disposition home or self-care (01) | LOC: LAB.R 08:00 | PROVIDERS: ATTEND Physician Assistant Medical | DX: N30.00 Acute cystitis without hematuria (principal) | CPT/HCPCS: 87086 ==

== ENCOUNTER 2020-04-07 07:31 | Outpatient (CLI) | payer MEDICARE ==
--- NOTE | 2020-04-07 15:33 | XRAY Report ---
PROCEDURE: Hip w/Pelvis 1V LT INDICATIONS: POST-OP CARE OF LT HIP TECHNIQUE: AP pelvis with lateral view(s) of the bilateral hip(s). COMPARISON: None. FINDINGS: Bones: No fractures or dislocations. Bilateral hip arthroplasty has been performed. Pelvic ring marshall ears intact. No suspicious bony lesions. Soft tissues: The visualized bowel gas pattern is normal. No suspicious soft tissue calcifications. IMPRESSION: Expected appearance of bilateral hip arthroplasty. Reviewed by: Kenan Su MD on 04/07/2020 3:31 PM PST Approved by: Kenan Su MD on 04/07/2020 3:31 PM PST Station ID: [id number]
== END 2020-04-07 23:59 | disposition home or self-care (01) ==
LOC: DI.N 07:31
PROVIDERS: ATTEND Orthopaedic Surgery
DX: Z48.89 Encounter for other specified surgical aftercare (principal); Z96.643 Presence of artificial hip joint, bilateral

== ENCOUNTER 2020-04-09 07:00 | Outpatient (CLI) | payer MEDICARE | END 2020-04-09 23:59 | disposition home or self-care (01) | LOC: LAB.R 07:00 | PROVIDERS: ATTEND Family Medicine | DX: N30.00 Acute cystitis without hematuria (principal) | CPT/HCPCS: 87086 ==

== ENCOUNTER 2020-04-25 01:15 | Outpatient (CLI) | payer MEDICARE | END 2020-04-25 23:59 | disposition home or self-care (01) | LOC: LAB.R 01:15 | PROVIDERS: ATTEND Family Medicine | DX: L08.9 Local infection of the skin and subcutaneous tissue, unspecified (principal) | CPT/HCPCS: 87070; 87181; 87205 ==

== ENCOUNTER 2020-05-02 08:00 | Outpatient (CLI) | payer MEDICARE | END 2020-05-02 23:59 | disposition home or self-care (01) | LOC: LAB.N 08:00 | PROVIDERS: ATTEND Family Medicine | DX: Z79.01 Long term (current) use of anticoagulants (principal) ==

== ENCOUNTER 2020-05-04 08:00 | Outpatient (CLI) | payer MEDICARE | END 2020-05-04 23:59 | disposition home or self-care (01) | LOC: LAB.WCP 08:00 | PROVIDERS: ATTEND Family Medicine | DX: I48.0 Paroxysmal atrial fibrillation (principal) ==

== ENCOUNTER 2020-09-16 12:25 | Outpatient (CLI) | payer MEDICARE ==
--- NOTE | 2020-09-16 13:09 | XRAY Report ---
PROCEDURE: Chest 2 View X-Ray INDICATIONS: COUGH TECHNIQUE: 2 view(s) of the chest. COMPARISON: None. FINDINGS: Surgical changes and devices: None. Lungs and pleura: Blunting of left costophrenic angle is seen suggestive of trace left pleural effusi on. No focal infiltrate. No pneumothorax. Mediastinum: Tortuous thoracic aorta with aortic arch calcifications are seen. Heart size is enlarged . Bones and chest wall: No suspicious bony abnormalities. Soft tissues appear unremarkable. IMPRESSION: Trace left pleural effusion. No focal infiltrate or pneumothorax. Reviewed by: Matty Michel MD on 09/16/2020 1:07 PM PDT Approved by: Matty Michel MD on 09/16/2020 1:07 PM PDT Station ID: [id number]
== END 2020-09-16 12:26 | disposition home or self-care (01) ==
LOC: DI.N 12:25
PROVIDERS: ATTEND Internal Medicine
DX: R91.8 Other nonspecific abnormal finding of lung field (principal); R05 Cough; J90 Pleural effusion, not elsewhere classified

== ENCOUNTER 2021-02-09 12:20 | Emergency (ER) | payer MEDICARE ==
--- NOTE | 2021-02-09 12:37 | ED Physician Documentation ---
PD HPI ABD PAIN - Stated complaint Stated Complaint: BACK PX - Chief complaint Chief Complaint: Abd Pain - History obtained from History obtained from: Patient - History of Present Illness Timing - onset: How many days ago (3) Timing - duration: Days (3) Timing - details: Gradual onset, Still present, Waxing and waning. No: Intermittant Quality: Aching, Sharp, Pain Location: Other (She noted onset of pain in the thoracolumbar area of the back radiating around to the right flank area and some to the left over the last 3 days. Gradually worsening. No noted injury at onset. No fevers rash or sores. Now feeling some mid abdominal cramping as well.) Improved by: No: Eating Worsened by: Moving, Breathing, Position (feels best sitting up or leaning to right. Worse turned to left.). No: Eating, Palpation Associated symptoms: No: Fever, Nausea, Dysuria, Chest pain, Near syncope / syncope Similar symptoms before: Has not had sx before Recently seen: Not recently seen Review of Systems Constitutional: denies: Fever, Chills, Myalgias Nose: denies: Rhinorrhea / runny nose, Congestion Throat: denies: Sore throat Respiratory: denies: Cough GI: reports: Abdominal Pain. denies: Nausea, Vomiting, Constipation, Diarrhea : denies: Dysuria, Hematuria Skin: denies: Rash, Lesions Neurologic: denies: Focal weakness, Numbness, Altered mental status PD PAST MEDICAL HISTORY - Past Medical History Cardiovascular: Hypertension, High cholesterol, Atrial fibrillation, Other Respiratory: None Neuro: CVA Endocrine/Autoimmune: HyPOthyroidism GI: None : Incontinence Psych: None Musculoskeletal: Osteoarthritis, Other (remote lumbar compression fracture) Derm: Herpes zoster - Past Surgical History Past Surgical History: Yes General: Cholecystectomy Ortho: Hip replacement HEENT: Tonsil/Adenoidectomy - Present Medications Home Medications: Ambulatory Orders Medication Instructions Recorded Confirmed Budesonide [Budesonide EC] 3 mg PO DAILY 10/12/14 03/16/20 Omeprazole [PriLOSEC] 20 mg PO DAILY 10/12/14 03/16/20 Simvastatin 5 mg PO QPM 10/12/14 03/16/20 Warfarin Sodium [Coumadin] 6 mg PO TUFR@2100 10/12/14 03/16/20 Garlic 1 tab PO DAILY 04/27/19 03/16/20 Lactobacillus Acidophilus 1 tab PO DAILY 04/27/19 03/16/20 [Probiotic Acidophilus] [place]-3/Dha/Epa/Fish Oil [Fish Oil 3,000 mg PO DAILY 04/27/19 03/16/20 1,000 mg Softgel] Metoprolol Succinate [Toprol Xl] 25 mg PO DAILY 04/28/19 03/16/20 Warfarin Sodium 3 mg PO SUMOWETHSA@2100 04/28/19 03/16/20 ursodioL [Jordon 250] 250 mg PO TID 04/28/19 03/16/20 predniSONE [Prednisone] 1 mg PO DAILY 01/07/20 03/16/20 ALPRAZolam [Alprazolam] 0.25 mg PO TID PRN #0 02/14/20 03/16/20 Calcium Carbonate [Tums (Calcium 500 mg PO BID #60 tablet 02/14/20 03/16/20 Carbonate 500mg)] Cholecalciferol [Vitamin D3] 800 unit PO DAILY #60 tablet 02/14/20 03/16/20 Ferrous Sulfate [Feosol] 325 mg PO DAILYWM #30 tablet 02/14/20 03/16/20 Levothyroxine [Synthroid] 100 mcg PO QDAC #30 tablet 02/14/20 03/16/20 polyethylene glycoL 3350 [Miralax] 17 gm PO DAILY #14 packet 02/14/20 03/16/20 Nitrofurantoin Monohyd/M-Cryst 100 mg PO BID #10 capsule 03/18/20 [Macrobid 100 mg Capsule] HYDROcod/ACETAM 5/325 [[place] 5/325] 1 - 2 tab PO Q6H PRN #15 tablet 03/19/20 Calcitonin [Fortical] 1 sprays CARLOS DAILY #1 bottle 02/09/21 Lidocaine Patch 5% [Lidoderm Patch] 1 patch TOP DAILY PRN #10 patch 02/09/21 oxyCODONE [Roxicodone] 5 mg PO Q6H PRN #15 tablet 02/09/21 - Allergies Allergies/Adverse Reactions: Allergies Allergy/AdvReac Type Severity Reaction Status Date / Time sertraline Allergy Unknown Verified 02/09/21 12:35 Sulfa (Sulfonamide Allergy Edema Verified 02/09/21 12:35 Antibiotics) - Social History Does the pt smoke?: No Smoking Status: Never smoker Does the pt drink ETOH?: No Does the pt have substance abuse?: No - Immunizations Immunizations are current?: Yes - POLST Patient has POLST: No POLST Status: Full Code PD ED PE NORMAL - Vitals Vital signs reviewed: Yes - General General: Alert and oriented X 3, Well developed/nourished, Other (appears uncomfortable in back with sitting up or turning to side. ) - Neck Neck: Supple, no meningeal sign, No adenopathy - Cardiac Cardiac: RRR, No murmur - Respiratory Respiratory: Clear bilaterally, Other (no chestwall tenderness, except some at lower right costal margin anterolaterally. ) - Abdomen Abdomen: Normal bowel sounds, Soft, Non distended, No organomegaly, Other (some tender without guarding right mid abdomen. No percussion tnederness. ) - Female Female : Deferred - Rectal Rectal: Deferred - Back Back: No CVA TTP, No spinal TTP - Derm Derm: Normal color, Warm and dry - Extremities Extremities: Normal ROM s pain, No edema, No calf tenderness / cord - Neuro Neuro: Alert and oriented X 3, No motor deficit, Normal speech Results - Vitals Vitals: Vital Signs - 24 hr 02/09/21 02/09/21 02/09/21 12:29 13:14 15:10 Temperature 36.1 C L 36.6 C Heart Rate 88 79 91 Respiratory 20 17 20 Rate Blood Pressure 111/82 H 133/67 H 154/83 H O2 Saturation 96 94 98 02/09/21 16:19 Temperature Heart Rate 86 Respiratory 18 Rate Blood Pressure 167/60 H O2 Saturation 99 Oxygen O2 Source Room air - Labs Labs: Laboratory Tests 02/09/21 02/09/21 02/09/21 12:57 12:57 13:15 WBC 10.1 RBC 3.83 L Hgb 11.3 L Hct 35.9 L MCV 93.7 MCH 29.5 MCHC 31.5 L RDW 14.0 Plt Count 522 H MPV 10.0 Neut # (Auto) 8.1 H Lymph # (Auto) 1.1 L [place] # (Auto) 0.7 Eos # (Auto) 0.1 Baso # (Auto) 0.1 Absolute Nucleated RBC 0.00 Nucleated RBC % 0.0 PT 29.5 H INR 2.6 H Sodium 138 Potassium 4.4 Chloride 102 Carbon Dioxide 25 Anion Gap 11.0 BUN 21 H Creatinine 0.6 Estimated GFR (MDRD) 95 Glucose 119 H Calcium 8.7 Total Bilirubin 0.6 AST 28 ALT 26 Alkaline Phosphatase 111 Total Protein 6.4 L Albumin 3.5 Globulin 2.9 Albumin/Globulin Ratio 1.2 Lipase 44 Urine Color Urine Clarity Urine pH Ur Specific [place] Urine Protein Urine Glucose (UA) Urine Ketones Urine Occult Blood Urine Nitrite Urine Bilirubin Urine Urobilinogen Ur Leukocyte Esterase Urine RBC Urine WBC Ur Squamous Epith Cells Urine Bacteria Ur Microscopic Review Urine Culture Comments 02/09/21 15:00 WBC RBC Hgb Hct MCV MCH MCHC RDW Plt Count MPV Neut # (Auto) Lymph # (Auto) Randolph # (Auto) Eos # (Auto) Baso # (Auto) Absolute Nucleated RBC Nucleated RBC % PT INR Sodium Potassium Chloride Carbon Dioxide Anion Gap BUN Creatinine Estimated GFR (MDRD) Glucose Calcium Total Bilirubin AST ALT Alkaline Phosphatase Total Protein Albumin Globulin Albumin/Globulin Ratio Lipase Urine Color YELLOW Urine Clarity CLEAR Urine pH 7.5 Ur Specific [place] 1.010 Urine Protein TRACE Urine Glucose (UA) NEGATIVE Urine Ketones NEGATIVE Urine Occult Blood TRACE-INTA Urine Nitrite POSITIVE H Urine Bilirubin NEGATIVE Urine Urobilinogen 0.2 (NORMAL) Ur Leukocyte Esterase NEGATIVE Urine RBC 0-5 Urine WBC 0-3 Ur Squamous Epith Cells RARE Squamous Urine Bacteria Few Ur Microscopic Review INDICATED Urine Culture Comments INDICATED - Rads (name of study) abd/pelvic CT Radiology: Prelim report reviewed (no kidney stones nor swelling. No intra-abd organ process. Prior L1 and L3 compression fractures. Apparent new mild T11 compression fx compared to 03/11.), See rad report PD MEDICAL DECISION MAKING - ED course Complexity details: reviewed results (No other apparent cause for pain on testing aside from apparently new T11 mild compression fracture. This is in the area where she hurts and may be causing some nerve radiculopathy onto the right. No rash or sores at 4 days after onset. Shingles unlikely. No intra- abdominal process noted on scan), considered differential, d/w patient Departure - Departure Disposition: 01 Home, Self Care Clinical Impression: Thoracolumbar back pain Compression fracture of thoracic spine, non-traumatic Qualifiers: Encounter type: initial encounter Thoracic vertebra fracture level: T11 Qualified Code(s): M48.54XA - Collapsed vertebra, not elsewhere classified, thoracic region, initial encounter for fracture Condition: Stable Record reviewed to determine appropriate education?: Yes Instructions: ED Fx Comp Vertebral Follow-Up: Kareem Daley MD [Primary Care Provider] - Prescriptions: Calcitonin [Fortical] 1 sprays CARLOS DAILY #1 bottle Lidocaine Patch 5% [Lidoderm Patch] 1 patch TOP DAILY PRN #10 patch PRN Reason: pain oxyCODONE [Roxicodone] 5 mg PO Q6H PRN #15 tablet PRN Reason: Pain Comments: Your lab testing does not show another acute cause for your pain aside from apparently new 11 thoracic mild compression fracture of the spine bone. This may be placing pressure on the nerve root to cause pain off to the right from that area in particular. No particular treatment is needed other than time for it to heal. Continue usual medications. Add Tylenol 500 mg 4 times a day regularly for the next week to 10 days. To that add oxycodone every 6 hours if needed for worse pain. You can also use lidocaine patch in the area that is hurting and tender daily. Activity and movement as tolerated. I would anticipate improvement in this over about a week to 10 days but take 3 to 4 weeks for it to really resolve. Follow-up with your primary care next week for recheck, call tomorrow for an appointment. I transmitted your scripts to [facility]. Your urine test had a suggestion of infection but not clearly so. The urine culture will result in a couple of days and be more confirmatory. We will call you if we need to add an antibiotic. I am prescribing a short course of narcotic pain medication for you. These are potentially dangerous and addictive medications that should be used carefully. These medications may constipate you. Take an [id number] stool softener such as docusate twice daily with plenty of water while taking these medications. If you go 24 hours without a bowel movement, take [id number] MiraLAX, per package instructions. Do not drink or drive while taking these medications. If you received narcotic or sedating medications while in the emergency department do not drive for 24 hours. Store this medication in a safe, secure place and out of reach of children. It is a violation of federal law to give or sell this medication to another person or to use in a manner other than prescribed. The ED will not refill narcotic prescriptions, including prescriptions lost or stolen. You can dispose of unwanted medications at the [facility]'s office or at several pharmacies such as [facility]. Discharge Date/Time: 02/09/21 16:24
[2021-02-09 13:03] LABS: BASOPHILS # (AUTO) 0.1 10^3/uL (0.0-0.1); BASOPHILS % (AUTO) 0.7 %; EOSINOPHILS # (AUTO) 0.1 10^3/uL (0.0-0.7); EOSINOPHILS % (AUTO) 1.4 %; HCT - HEMATOCRIT 35.9 % (37.0-47.0); HGB - HEMOGLOBIN 11.3 g/dL (12.0-16.0); LYMPHOCYTES # (AUTO) 1.1 10^3/uL (1.5-3.5); LYMPHOCYTES % (AUTO) 11.1 %; MEAN CORPUSCULAR HEMOGLOBIN 29.5 pg (27.0-31.0); MEAN CORPUSCULAR HGB CONC 31.5 g/dL (32.0-36.0); MEAN CORPUSCULAR VOLUME 93.7 fL (81.0-99.0); MONOCYTES # (AUTO) 0.7 10^3/uL (0.0-1.0); MONOCYTES % (AUTO) 6.6 %; NEUTROPHILS # (AUTO) 8.1 10^3/uL (1.5-6.6); NEUTROPHILS % (AUTO) 79.5 %; PLT - PLATELET COUNT 522 10^3/uL (130-450); RED BLOOD COUNT 3.83 10^6/uL (4.20-5.40); WHITE BLOOD COUNT 10.1 x10^3/uL (4.8-10.8)
[2021-02-09] MEDS ORDERED: MORPHINE 2 MG/ML CARPUJECT IVP STA ×2 (13:04→14:54)
[2021-02-09] MEDS ORDERED: KETOROLAC 15 MG/ML VIAL IVP STA (13:04)
[2021-02-09] MEDS ORDERED: SODIUM CHLORIDE 0.9% 1,000 ML IV STA (13:04)
[2021-02-09 13:15] LABS: ALBUMIN 3.5 g/dL (3.2-5.5); ALBUMIN/GLOBULIN RATIO 1.2 (1.0-2.2); BILIRUBIN,TOTAL 0.6 mg/dL (0.2-1.0); CALCIUM 8.7 mg/dL (8.5-10.3); CREATININE 0.6 mg/dL (0.4-1.0); POTASSIUM 4.4 mmol/L (3.5-5.0); TOTAL PROTEIN 6.4 g/dL (6.7-8.2)
[2021-02-09] MEDS ORDERED: IOVERSOL 320 100 ML VIAL IVP ONE ×2 (13:18→13:46)
[2021-02-09 13:44] LABS: INR 2.6 (0.8-1.2); PT - PROTHROMBIN TIME 29.5 secs (9.9-12.6)
--- NOTE | 2021-02-09 14:18 | CT Report ---
PROCEDURE: CT abdomen pelvis with contrast INDICATIONS: flank to lower abd pain for 4 days CONTRAST: IV CONTRAST: Optiray 320 ml: 100 PO CONTRAST: *NO PO CONTRAST TECHNIQUE: After the administration of contrast, 5 mm thick sections acquired from the diaphragms to the sym physis. 5 mm thick coronal and sagittal reformats were acquired. For radiation dose reduction, the following was used: automated exposure control, adjustment of mA and/or kV according to patient size . COMPARISON: April 27, 2019 FINDINGS: Image quality: Excellent. ABDOMEN: Lung bases: Mild lower lung scarring, stable. Solid organs: Liver and spleen are normal in size and enhancement. Gallbladder surgically absent B iliary system is non dilated. Pancreas enhances normally. No adrenal nodules. Kidneys demonstrate normal size and enhancement, without hydronephrosis. Bilateral renal cortical cysts remain stable from the prior. Peritoneum and bowel: Bowel loops demon strate normal wall thickness and caliber. No free fluid or air. Moderate fecal debris throughout th e colon. Nodes and vessels: No retroperitoneal or mesenteric adenopathy by size criteria. Aorta and inferior vena cava are normal in size. Atherosclerotic calcification of the abdominal aorta without evidence of aneurysm. Miscellaneous: No ventral hernias. PELVIS: Genitourinary: Bladder wall thickness is normal. Miscellaneous: No inguinal hernias or adenopathy. Bones: No suspicious bony lesions. No vertebral body compression fractures. Old L3 compression fra cture and bilateral hip prosthesis noted. The left hip prosthesis is new from the prior.. There is a new L1 no wedge-shaped compression fracture with 90% anterior height loss as well as a T11 compressio n fracture with 10% height loss, both new from the prior. Retropulsed fracture fragment at L1-2 resul ts in moderate central stenosis. IMPRESSION: 1. No evidence of renal calculi or obstructive uropathy. 2. L1 wedge-shaped compression fracture is of uncertain age, but new from the prior exam. Retropulsed fracture fragment results in moderate central stenosis. Stable L3 and new T11 compression fractures. 3. Left hip prosthesis is new from prior. Stable right hip prosthesis. 4. Moderate to fecal debris in the right and transverse colon Reviewed by: José Dubose MD on 02/09/2021 1:17 PM [facility] Approved by: José Dubose MD on 02/09/2021 1:17 PM [facility] Station ID: [id number]
[2021-02-09 15:31] LABS: BILIRUBIN,URINE NEGATIVE (NEGATIVE); GLUCOSE, URINE (UA) NEGATIVE (NEGATIVE); KETONES,URINE (UA) NEGATIVE (NEGATIVE); LEUKOCYTE ESTERASE, URINE NEGATIVE (NEGATIVE); NITRITE,URINE POSITIVE (NEGATIVE); OCCULT BLOOD,URINE TRACE-INTA (NEGATIVE); PH,URINE 7.5 PH (5.0-7.5); PROTEIN,URINE TRACE mg/dL (NEGATIVE); UROBILINOGEN,URINE 0.2 (NORMAL) E.U./dL (NORMAL)
[2021-02-09 15:38] LABS: CLARITY,URINE CLEAR (CLEAR)
[2021-02-09 15:51] LABS: BACTERIA,URINE Few /HPF (None Seen); RBC,URINE 0-5 /HPF (0-5); SQUAMOUS EPITHELIAL CELL,UR RARE Squamous (<= Few); WBC,URINE 0-3 /HPF (0-5)
[2021-02-09 16:20] VITALS: BP 167/60
== END 2021-02-09 16:24 | disposition home or self-care (01) ==
LOC: ED 12:20
DX: M48.55XA Collapsed vertebra, not elsewhere classified, thoracolumbar region, initial encounter for fracture (principal)
CPT/HCPCS: 36415; 74177; 80053; 81001; 83690; 85025; 85610; 87086; 96374; 96375; 96376; 99284; Q9967; 81003

== ENCOUNTER 2021-03-19 09:07 | Outpatient (CLI) | payer MEDICARE | END 2021-03-19 09:08 | disposition short-term general hospital (02) | LOC: EMS 09:07 | DX: R10.9 Unspecified abdominal pain (principal); R30.0 Dysuria | CPT/HCPCS: A0425; A0429 ==

== ENCOUNTER 2021-03-20 12:52 | Outpatient (CLI) | payer MEDICARE | END 2021-03-20 12:53 | disposition EMS.NT | LOC: EMS 12:52 | DX: R10.9 Unspecified abdominal pain (principal); R11.0 Nausea; M54.50 Low back pain, unspecified ==

== ENCOUNTER 2021-03-28 01:55 | Outpatient (CLI) | payer MEDICARE | END 2021-03-28 01:56 | disposition critical access hospital (66) | LOC: EMS 01:55 | DX: S89.91XA Unspecified injury of right lower leg, initial encounter (principal); W18.11XA Fall from or off toilet without subsequent striking against object, initial encounter; Y92.002 Bathroom of unspecified non-institutional (private) residence as the place of occurrence of the external cause; R53.1 Weakness; R47.81 Slurred speech; R51.9 Headache, unspecified | CPT/HCPCS: A0425; A0429 ==

== ENCOUNTER 2021-03-28 02:19 | Emergency (ER) | payer MEDICARE ==
--- NOTE | 2021-03-28 02:31 | ED Physician Documentation ---
PD HPI FOCAL NEURO - Stated complaint Stated Complaint: CLF, WEAKNESS, POTTER,RT FERRER SKIN TEAR PD PAST MEDICAL HISTORY - Past Medical History Cardiovascular: Hypertension, High cholesterol, Atrial fibrillation, Other Respiratory: None Neuro: CVA Endocrine/Autoimmune: HyPOthyroidism GI: None : Incontinence Psych: None Musculoskeletal: Osteoarthritis, Other (remote lumbar compression fracture) Derm: Herpes zoster - Past Surgical History Past Surgical History: Yes General: Cholecystectomy Ortho: Hip replacement HEENT: Tonsil/Adenoidectomy - Present Medications Home Medications: Ambulatory Orders Medication Instructions Recorded Confirmed Budesonide [Budesonide EC] 3 mg PO DAILY 10/12/14 03/16/20 Omeprazole [PriLOSEC] 20 mg PO DAILY 10/12/14 03/16/20 Simvastatin 5 mg PO QPM 10/12/14 03/16/20 Warfarin Sodium [Coumadin] 6 mg PO TUFR@209910/12/14 03/16/20 Garlic 1 tab PO DAILY 04/27/19 03/16/20 Lactobacillus Acidophilus 1 tab PO DAILY 04/27/19 03/16/20 [Probiotic Acidophilus] [place]-3/Dha/Epa/Fish Oil [Fish Oil 3,000 mg PO DAILY 04/27/19 03/16/20 1,000 mg Softgel] Metoprolol Succinate [Toprol Xl] 25 mg PO DAILY 04/28/19 03/16/20 Warfarin Sodium 3 mg PO SUMOWETHSA@209904/28/19 03/16/20 ursodioL [Jordon 250] 250 mg PO TID 04/28/19 03/16/20 predniSONE [Prednisone] 1 mg PO DAILY 01/07/20 03/16/20 ALPRAZolam [Alprazolam] 0.25 mg PO TID PRN #0 02/14/20 03/16/20 Calcium Carbonate [Tums (Calcium 500 mg PO BID #60 tablet 02/14/20 03/16/20 Carbonate 500mg)] Cholecalciferol [Vitamin D3] 800 unit PO DAILY #60 tablet 02/14/20 03/16/20 Ferrous Sulfate [Feosol] 325 mg PO DAILYWM #30 tablet 02/14/20 03/16/20 Levothyroxine [Synthroid] 100 mcg PO QDAC #30 tablet 02/14/20 03/16/20 polyethylene glycoL 3350 [Miralax] 17 gm PO DAILY #14 packet 02/14/20 03/16/20 Nitrofurantoin Monohyd/M-Cryst 100 mg PO BID #10 capsule 03/18/20 [Macrobid 100 mg Capsule] HYDROcod/ACETAM 5/325 [[place] 5/325] 1 - 2 tab PO Q6H PRN #15 tablet 03/19/20 Calcitonin [Fortical] 1 sprays CARLOS DAILY #1 bottle 02/09/21 Lidocaine Patch 5% [Lidoderm Patch] 1 patch TOP DAILY PRN #10 patch 02/09/21 oxyCODONE [Roxicodone] 5 mg PO Q6H PRN #15 tablet 02/09/21 - Allergies Allergies/Adverse Reactions: Allergies Allergy/AdvReac Type Severity Reaction Status Date / Time sertraline Allergy Unknown Verified 02/09/21 12:35 Sulfa (Sulfonamide Allergy Edema Verified 02/09/21 12:35 Antibiotics) - Social History Does the pt smoke?: No Smoking Status: Never smoker Does the pt drink ETOH?: No Does the pt have substance abuse?: No - Immunizations Immunizations are current?: Yes - POLST Patient has POLST: No POLST Status: Full Code Results - Vitals Vitals: Oxygen O2 Source Room air
[2021-03-28 02:37] LABS: BASOPHILS # (AUTO) 0.1 10^3/uL (0.0-0.1); EOSINOPHILS # (AUTO) 0.5 10^3/uL (0.0-0.7); EOSINOPHILS % (AUTO) 4.7 %; HGB - HEMOGLOBIN 10.5 g/dL (12.0-16.0); LYMPHOCYTES # (AUTO) 2.6 10^3/uL (1.5-3.5); MEAN CORPUSCULAR HEMOGLOBIN 28.8 pg (27.0-31.0); MEAN CORPUSCULAR HGB CONC 30.9 g/dL (32.0-36.0); MEAN CORPUSCULAR VOLUME 93.2 fL (81.0-99.0); MEAN PLATELET VOLUME 10.2 fL (7.9-10.8); NEUTROPHILS % (AUTO) 61.5 %; PLT - PLATELET COUNT 566 10^3/uL (130-450); RED BLOOD COUNT 3.65 10^6/uL (4.20-5.40); RED CELL DISTRIBUTION WIDTH 14.8 % (12.0-15.0); WHITE BLOOD COUNT 11.4 x10^3/uL (4.8-10.8)
[2021-03-28 02:40] LABS: INR 1.3 (0.8-1.2); PT - PROTHROMBIN TIME 14.4 secs (9.9-12.6)
[2021-03-28 02:47] LABS: ALBUMIN 3.2 g/dL (3.2-5.5); ALBUMIN/GLOBULIN RATIO 1.3 (1.0-2.2); BILIRUBIN,TOTAL 0.7 mg/dL (0.2-1.0); CALCIUM 8.9 mg/dL (8.5-10.3); CREATININE 0.9 mg/dL (0.4-1.0); PARTIAL THROMBOPLASTIN TIME 26.2 secs (24.9-33.3); POTASSIUM 3.8 mmol/L (3.5-5.0); TOTAL PROTEIN 5.7 g/dL (6.7-8.2)
[2021-03-28 05:00] LABS: BILIRUBIN,URINE NEGATIVE (NEGATIVE); GLUCOSE, URINE (UA) NEGATIVE (NEGATIVE); KETONES,URINE (UA) 15 mg/dL (NEGATIVE); LEUKOCYTE ESTERASE, URINE NEGATIVE (NEGATIVE); NITRITE,URINE NEGATIVE (NEGATIVE); OCCULT BLOOD,URINE MODERATE (NEGATIVE); PROTEIN,URINE 100 mg/dL (NEGATIVE); UROBILINOGEN,URINE 0.2 (NORMAL) E.U./dL (NORMAL)
[2021-03-28 05:02] LABS: CLARITY,URINE CLEAR (CLEAR)
[2021-03-28 05:16] LABS: BACTERIA,URINE None Seen /HPF (None Seen); RBC,URINE 0-5 /HPF (0-5); SQUAMOUS EPITHELIAL CELL,UR NONE SEEN (<= Few); WBC,URINE 0-3 /HPF (0-5)
[2021-03-28] MEDS ORDERED: HYDROcod/ACETAM 5/325 MG TABLET PO STA ×2 (05:35→07:31)
[2021-03-28] MEDS ORDERED: BACITRACIN ZINC OINT 1 PACKET TOP STA (06:08)
--- NOTE | 2021-03-28 07:57 | CT Report ---
PROCEDURE: Head W/O Stroke Protocol INDICATIONS: fall, headache, on warfarin, left sided weakness TECHNIQUE: Noncontrast 4.5 mm thick angled axial sections acquired from the foramen magnum to the vertex, with c oronal reformats. For radiation dose reduction, the following was used: automated exposure control, adjustment of mA and/or kV according to patient size. COMPARISON: 02/10/2020 FINDINGS: Image quality: Excellent. CSF spaces: Basal cisterns are patent. No extra-axial fluid collections. Ventricles are normal in size and shape. Calcifications are again noted along the falx and tentorium. Brain: No midline shift. No intracranial masses or hemorrhage. Lainez-white matter interface is norm al. Basal ganglia calcifications, as before. Age-related volume loss and small vessel ischemic wooten e. Old small right frontal parietal infarct. Skull and face: Calvarium and visualized facial bones are intact, without suspicious lesions. Sinuses: Visualized sinuses and mastoids are clear. IMPRESSION: 1. Age-related volume loss, small vessel ischemic change, old infarct. 2. No evidence acute stroke, hemorrhage, or mass. Findings are concordant with preliminary interpretation provided by [facility]. This study fulfills neurological imaging criteria for inclusion or exclusion of acute stroke therapie s based on available published neurological imaging guidelines. Reviewed by: Jose Francisco Bob MD on 03/28/2021 7:56 AM [facility] Approved by: Jose Francisco Bob MD on 03/28/2021 7:56 AM [facility] Station ID: [id number]
--- NOTE | 2021-03-28 09:53 | ED Physician Documentation ---
History of Present Illness - Stated complaint Stated Complaint: CLF, WEAKNESS, POTTER,RT HART SKIN TEAR - Chief complaint Chief Complaint: Neuro - History obtained from History obtained from: Patient, Family (I talked with patient's over the phone), EMS - History of Present Illness Timing: Prior to arrival Pain level now: 0 - Additonal information Additional information: BIBA. Patient was on toilet, fell when she tried to stand up due to generalized weakness. Patient c/o frontal headache. EMS reports they found patient on floor of bathroom with left-sided weakness and slurred speech, but this has resolved by the time of my H+P. Patient takes warfarin for atrial fibrillation Review of Systems Constitutional: denies: Fever, Chills, Fatigue, Sweats Eyes: denies: Loss of vision, Decreased vision Cardiac: reports: Reviewed and negative Respiratory: reports: Reviewed and negative GI: reports: Reviewed and negative : denies: Dysuria, Frequency, Incontinent Skin: reports: Other (skin tear right hart) Musculoskeletal: reports: Back pain Neurologic: reports: Generalized weakness, Focal weakness (patient denies having focal weakness; EMS noted left-sided arm and leg weakness on their initial assessment), Headache. denies: Numbness, Near syncope, Syncope, Confused, Altered mental status, LOC PD PAST MEDICAL HISTORY - Past Medical History Past Medical History: Yes Cardiovascular: Hypertension, High cholesterol, Atrial fibrillation, Other Respiratory: None Neuro: CVA Endocrine/Autoimmune: HyPOthyroidism GI: None : Incontinence Psych: None Musculoskeletal: Osteoarthritis, Other Derm: Herpes zoster - Past Surgical History Past Surgical History: Yes General: Cholecystectomy Ortho: Hip replacement HEENT: Tonsil/Adenoidectomy - Present Medications Home Medications: Ambulatory Orders Medication Instructions Recorded Confirmed Budesonide [Budesonide EC] 3 mg PO DAILY 10/12/14 03/28/21 Omeprazole [PriLOSEC] 20 mg PO DAILY 10/12/14 03/28/21 Simvastatin 5 mg PO QPM 10/12/14 03/28/21 Warfarin Sodium [Coumadin] 6 mg PO TUFR@2100 10/12/14 03/28/21 Garlic 1 tab PO DAILY 04/27/19 03/28/21 Lactobacillus Acidophilus 1 tab PO DAILY 04/27/19 03/28/21 [Probiotic Acidophilus] [place]-3/Dha/Epa/Fish Oil [Fish Oil 3,000 mg PO DAILY 04/27/19 03/28/21 1,000 mg Softgel] Metoprolol Succinate [Toprol Xl] 25 mg PO DAILY 04/28/19 03/28/21 Warfarin Sodium 3 mg PO SUMOWETHSA@2100 04/28/19 03/28/21 ursodioL [Jordon 250] 250 mg PO TID 04/28/19 03/28/21 predniSONE [Prednisone] 1 mg PO DAILY 01/07/20 03/28/21 ALPRAZolam [Alprazolam] 0.25 mg PO TID PRN #0 02/14/20 03/28/21 Calcium Carbonate [Tums (Calcium 500 mg PO BID #60 tablet 02/14/20 03/28/21 Carbonate 500mg)] Cholecalciferol [Vitamin D3] 800 unit PO DAILY #60 tablet 02/14/20 03/28/21 Ferrous Sulfate [Feosol] 325 mg PO DAILYWM #30 tablet 02/14/20 03/28/21 Levothyroxine [Synthroid] 100 mcg PO QDAC #30 tablet 02/14/20 03/28/21 polyethylene glycoL 3350 [Miralax] 17 gm PO DAILY #14 packet 02/14/20 03/28/21 HYDROcod/ACETAM 5/325 [[place] 5/325] 1 - 2 tab PO Q6H PRN #15 tablet 03/19/20 03/28/21 Calcitonin [Fortical] 1 sprays CARLOS DAILY #1 bottle 02/09/21 03/28/21 Lidocaine Patch 5% [Lidoderm Patch] 1 patch TOP DAILY PRN #10 patch 02/09/21 03/28/21 oxyCODONE [Roxicodone] 5 mg PO Q6H PRN #15 tablet 02/09/21 03/28/21 Losartan Potassium 25 mg PO DAILY 03/28/21 03/28/21 - Allergies Allergies/Adverse Reactions: Allergies Allergy/AdvReac Type Severity Reaction Status Date / Time sertraline Allergy Unknown Verified 03/28/21 02:32 Sulfa (Sulfonamide Allergy Edema Verified 03/28/21 02:32 Antibiotics) - Social History Does the pt smoke?: No Smoking Status: Never smoker Does the pt drink ETOH?: No Does the pt have substance abuse?: No - Immunizations Immunizations are current?: Yes - POLST Patient has POLST: No POLST Status: Full Code PD ED PE NORMAL - Vitals Vital signs reviewed: Yes - General General: Alert and oriented X 3, No acute distress, Well developed/nourished - HEENT HEENT: Atraumatic, PERRL, EOMI, Other (no facial asymmetry) - Neck Neck: Supple, no meningeal sign, No bony TTP - Cardiac Cardiac: RRR - Respiratory Respiratory: No respiratory distress, Clear bilaterally - Abdomen Abdomen: Normal bowel sounds, Soft, Non tender, Non distended - Back Back: No CVA TTP - Derm Derm: Normal color - Extremities Extremities: No tenderness to palpate, Normal ROM s pain, Other (right pre- tibial skin tear without bony tenderness) - Neuro Neuro: Alert and oriented X 3, dietary services manager 2-12 intact, No motor deficit, No sensory deficit, Normal speech Eye Opening: Spontaneous Motor: Obeys Commands Verbal: Oriented GCS Score: 15 - Psych Psych: Normal mood, Normal affect PD ED PE EXPANDED - Cardiac Cardiac: Murmur Present - Neuro Neuro: Normal motor (full strength BUE/BLE (gas or water meter installer, dorsi/plantarflexion, iliopsoas)), Normal Sensation, Normal Speech, CNII-XII intact, PERRL, Normal speech Results - Vitals Vitals: Vital Signs - 24 hr 03/28/21 03/28/21 03/28/21 02:32 03:07 03:30 Temperature 36.3 C L Heart Rate 99 95 95 Respiratory 17 19 20 Rate Blood Pressure 160/82 H 178/76 H 177/79 H O2 Saturation 95 97 97 03/28/21 03/28/21 03/28/21 04:00 04:30 05:00 Temperature Heart Rate 95 92 92 Respiratory 20 18 19 Rate Blood Pressure 180/72 H 167/63 H 175/69 H O2 Saturation 96 98 97 03/28/21 03/28/21 03/28/21 05:30 06:00 06:30 Temperature 36.4 C L Heart Rate 97 95 78 Respiratory 17 21 17 Rate Blood Pressure 150/72 H 166/77 H 175/84 H O2 Saturation 98 98 97 03/28/21 03/28/21 06:59 07:52 Temperature 36.8 C Heart Rate 88 97 Respiratory 17 22 Rate Blood Pressure 152/67 H 165/73 H O2 Saturation 97 98 Oxygen O2 Source Room air - Labs Labs: Laboratory Tests 03/28/21 03/28/21 03/28/21 02:26 02:26 02:26 WBC 11.4 H RBC 3.65 L Hgb 10.5 L Hct 34.0 L MCV 93.2 MCH 28.8 MCHC 30.9 L RDW 14.8 Plt Count 566 H MPV 10.2 Neut # (Auto) 7.0 H Lymph # (Auto) 2.6 [place] # (Auto) 1.0 Eos # (Auto) 0.5 Baso # (Auto) 0.1 Absolute Nucleated RBC 0.00 Nucleated RBC % 0.0 PT 14.4 H INR 1.3 H APTT 26.2 Sodium 141 Potassium 3.8 Chloride 102 Carbon Dioxide 28 Anion Gap 11.0 BUN 19 Creatinine 0.9 Estimated GFR (MDRD) 59 L Glucose 114 H Calcium 8.9 Total Bilirubin 0.7 AST 29 ALT 21 Alkaline Phosphatase 147 H Troponin I High Sens Total Protein 5.7 L Albumin 3.2 Globulin 2.5 Albumin/Globulin Ratio 1.3 Lipase 28 Urine Color Urine Clarity Urine pH Ur Specific [place] Urine Protein Urine Glucose (UA) Urine Ketones Urine Occult Blood Urine Nitrite Urine Bilirubin Urine Urobilinogen Ur Leukocyte Esterase Urine RBC Urine WBC Ur Squamous Epith Cells Urine Bacteria Ur Microscopic Review Urine Culture Comments 03/28/21 03/28/21 02:26 04:30 WBC RBC Hgb Hct MCV MCH MCHC RDW Plt Count MPV Neut # (Auto) Lymph # (Auto) [place] # (Auto) Eos # (Auto) Baso # (Auto) Absolute Nucleated RBC Nucleated RBC % PT INR APTT Sodium Potassium Chloride Carbon Dioxide Anion Gap BUN Creatinine Estimated GFR (MDRD) Glucose Calcium Total Bilirubin AST ALT Alkaline Phosphatase Troponin I High Sens 13.6 Total Protein Albumin Globulin Albumin/Globulin Ratio Lipase Urine Color YELLOW Urine Clarity CLEAR Urine pH 7.0 Ur Specific [place] 1.025 Urine Protein 100 H Urine Glucose (UA) NEGATIVE Urine Ketones 15 H Urine Occult Blood MODERATE H Urine Nitrite NEGATIVE Urine Bilirubin NEGATIVE Urine Urobilinogen 0.2 (NORMAL) Ur Leukocyte Esterase NEGATIVE Urine RBC 0-5 Urine WBC 0-3 Ur Squamous Epith Cells NONE SEEN Urine Bacteria None Seen Ur Microscopic Review INDICATED Urine Culture Comments NOT INDICATED - Rads (name of study) [facility] Radiology: Prelim report reviewed, See rad report PD MEDICAL DECISION MAKING - ED course Complexity details: reviewed old records, reviewed results, re-evaluated patient, considered differential, d/w patient ED course: patient is in NAD on my initial exam, no neurologic deficits and CTH is without acute findings (chronic calcifications noted). No significant abnormalities on blood tests (INR is low at 1.3 considering she is on warfarin). I reviewed results with patient . On reevaluation, she is now c/o low back pain. We discussed options for pain medication, I note she has recently been prescribed hydrocodone as well as oxycodone (for low back pain for which she was evaluated in this ED in January). She confirms the back pain is ongoing since that time. Given a dose of vicodin in ED. Subsequently reevaluated, and she is in NAD , says she feels too weak and in too much pain to go back home. She says she usually gets around at home with a wheelchair and her 's assistance. She is given another dose of vicodin. I then contacted her and he expresses concern that she was too weak to get up after falling from the toilet tonight. Will obtain SW consult later this morning. Care of patient turned over to Dr. Montero at end of my shift pending SW consult
--- NOTE | 2021-03-28 13:53 | ED Physician Documentation ---
ED Addendum - Addendum Addendum: Social work talk with the patient and family and were arranging respite care at [facility]. However while that was in process, the family came up with extra caregivers at home in order to provide nighttime caregiving as well as the increased daytime caregiving. With that the patient and her feel comfortable with her going home. The patient will be discharged home in stable condition. political worker says the patient and her do have a walker, bedside commode, toilet seat lift in order to accommodate ease of movement. The caregiver will be present at the house and unavailable when she goes home from the ER today. Disposition: The patient is discharged stable from the ER to home. Diagnoses: 1. General weakness 2. Chronic pain. 03/28/21 13:51
[2021-03-28 14:31] VITALS: BP 128/60
== END 2021-03-28 14:30 | disposition home or self-care (01) ==
LOC: EDUNIT# → SUPCPDRO 02:19 → ED 02:19
DX: S81.811A Laceration without foreign body, right lower leg, initial encounter (principal); W18.11XA Fall from or off toilet without subsequent striking against object, initial encounter; R53.1 Weakness; M54.50 Low back pain, unspecified; G89.29 Other chronic pain; I48.91 Unspecified atrial fibrillation; Z79.01 Long term (current) use of anticoagulants; I10 Essential (primary) hypertension
CPT/HCPCS: 36415; 70450; 80053; 81001; 83690; 84484; 85025; 85610; 85730; 93005; 99283; 99284; A9270; 81003; 87086

== ENCOUNTER 2021-03-30 10:18 | Outpatient (CLI) | payer MEDICARE | END 2021-03-30 10:19 | disposition short-term general hospital (02) | LOC: EMS 10:18 | DX: M25.551 Pain in right hip (principal); G89.29 Other chronic pain | CPT/HCPCS: A0425; A0429 ==